=== PATIENT | male | born 1960 | race Caucasian/White ===

== ENCOUNTER 2017-07-04 15:15 | Inpatient (IN) ==
--- NOTE | 2017-07-04 15:21 | Emergency Department Note ---
Disposition Clinical Impression: Atrial fibrillation with RVR Pneumonia Qualifiers: Pneumonia type: due to unspecified organism Laterality: unspecified laterality Lung location: unspecified part of lung Qualified Code(s): J18.9 - Pneumonia, unspecified organism Disposition: Admitted As Inpatient Condition: Fair [facility] Provider[facility] - Forms: ED Satisfaction Letter, Work/School Release Time of Disposition: 15:30 General Adult HPI - General Chief complaint: ED Abdominal Pain Stated complaint: constipation Time Seen by Provider: 07/04/17 15:19 Source: patient, EMS Mode of arrival: EMS Limitations: no limitations Nursing Notes Reviewed: Yes Vital Signs Reviewed: Yes - History of Present Illness HPI Narrative: 56[facility]year-[facility] and during the workup was found to be in A. fib with rapid ventricular response and also found to have elevated blood pressure and elevated troponin. The patient denies chest pain but does feel some dyspnea. The patient stopped his blood pressure medicine. 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: abdomen Radiation: non-radiation Pain Severity: mild Consistency: constant Improves with: nothing Worsens with: nothing Treatments Prior to Arrival: none - Related Data Home Medications Medication Instructions Recorded Confirmed Aspirin Enteric Coated [Aspirin EC] 81 mg PO DAILY 07/04/17 07/04/17 Dextroamphetamine Sulfate 10 mg PO QAM 07/04/17 07/04/17 [Dexedrine] Insulin ASPART [NovoLOG] 0 unit SQ TIDAC 07/04/17 07/04/17 Insulin Regular U-500 [HumuLIN R 150 - 220 unit SQ QAM 07/04/17 07/04/17 U-500] Insulin Regular U-500 [HumuLIN R 150 - 230 unit SQ 1200 07/04/17 07/04/17 U-500] Insulin Regular U-500 [HumuLIN R 160 - 260 unit SQ QPM 07/04/17 07/04/17 U-500] Ketotifen Fumarate [Zaditor] 1 drop OP BID PRN 07/04/17 07/04/17 Naproxen [Naprosyn] 500 mg PO BID 07/04/17 07/04/17 OxyCODONE Immed Rel [Roxicodone 10 30 mg PO BID 07/04/17 07/04/17 MG] Polyethylene Glycol 3350 [MiraLAX] 17 gm PO HS PRN 07/04/17 07/04/17 Propylene Glycol/Peg 400 [Systane 1 drop BOTH EYES BID PRN 07/04/17 07/04/17 0.3-0.4% Eye Drops] amLODIPine [Norvasc] 5 mg PO DAILY 07/04/17 07/04/17 Allergies Allergy/AdvReac Type Severity Reaction Status Date / Time aspartame Allergy See Verified 07/04/17 16:02 Comments carvedilol [From Coreg] Allergy See Verified 07/04/17 16:02 Comments hydrochlorothiazide Allergy See Verified 07/04/17 16:02 Comments losartan [From Cozaar] Allergy See Verified 07/04/17 16:02 Comments peanut Allergy See Verified 07/04/17 16:02 Comments prasugrel [From Effient] Allergy See Verified 07/04/17 16:02 Comments ramipril Allergy See Verified 07/04/17 16:02 Comments sucralose Allergy See Verified 07/04/17 16:02 Comments sweet n low Allergy See Uncoded 07/04/17 16:02 Comments All systems ED: reviewed and negative except as stated. Constitutional: Denies: fever, chills, weakness, weight change Eyes: Denies: eye pain, eye discharge, vision change ENT ED: Denies: ear pain, throat pain, dental pain, hearing loss, epistaxis, congestion, dysphagia Cardiovascular: Denies: chest pain, palpitations, dyspnea on exertion, edema, syncope Respiratory: Denies: cough, dyspnea, wheezes, hemoptysis, stridor Gastrointestinal: Reports: abdominal pain, constipation. Denies: nausea, vomiting, diarrhea, hematemesis, melena, hematochezia Genitourinary: Denies: urgency, dysuria, frequency, hematuria Musculoskeletal: Denies: back pain, neck pain, arthralgia, myalgia Integumentary: Denies: rash, abrasion, lesions Neurological: Denies: headache, weakness, numbness, paresthesias, confusion, abnormal gait, vertigo Psychiatric: Denies: anxiety, depression, suicidal thoughts, homicidal thoughts , auditory hallucinations, visual hallucinations Endocrine: Denies: fatigue Hematological/Lymphatic: Denies: easy bleeding, easy bruising Allergic/Immunologic: Denies: facial swelling, urticaria Past Medical History - Past Medical History Medical history: Reports: COPD, coronary artery disease, diabetes, hyperlipidemia, hypertension, myocardial infarction Surgical history: Reports: angioplasty/stent, appendectomy Psychiatric history: Reports: ADHD - Social History Smoking Status: Former smoker Alcohol use: Reports: none Drug use: Reports: prescription drug abuse Physical Exam - General Limitations: no limitations General appearance: alert, in no apparent distress - Head Head exam: atraumatic, normocephalic, normal inspection - Eye Eye exam: Present: normal appearance, PERRL, EOMI - ENT ENT exam: normal exam, normal oropharynx, mucous membranes moist - Neck Neck exam: Present: normal inspection, full ROM, trachea midline - Chest Chest inspection: Present: normal inspection, symmetric chest wall rise - Respiratory Respiratory exam: Present: normal lung sounds bilaterally - Cardiovascular Cardiovascular exam: Present: tachycardia, irregular rhythm, normal heart sounds - Abdominal Exam Abdominal exam: Present: soft. Absent: guarding, rebound - Extremities Exam Extremities exam: Present: normal inspection, full ROM. Absent: tenderness, pedal edema - Expanded Lower Extremity Exam Neurovascular/Tendon exam: Present: normal capillary refill Gait: observed and normal - Back Exam Back exam: Present: normal inspection, full ROM. Absent: tenderness - Neurological Exam Neurological exam: Present: alert, oriented X3 - Psychiatric Psychiatric exam: Present: normal affect, normal mood - Skin Skin exam: Present: warm, dry, intact, normal color Course - Reevaluation(s) Reevaluation #1: Chest x-ray from the [place] shows a right basilar airspace disease with a possible right pleural effusion abdominal views show a positive small bowel gas, moderate amount of stool in the colon. Degenerative changes of the spine. Lipase 86, amylase 18 white count 11.8 hemoglobin 14.8 hematocrit 44.5 platelets of 265 AST 13 ALT 14 sodium 134 potassium 3.4 chloride 98 carbon monoxide 28 glucose 380 BUNs 7 creatinine 1.3 for GFR 58.8 troponin was 0.066, high normal 0.045. CK was 117. BNP was 4206 with a normal level of less than 125. Echocardiogram done in 2016 shows an EF of 55%. Time: 15:22 Reevaluation #2: 56-year-old who went in for constipation was found to be in A. fib with positive cardiac enzymes possibly pneumonia and CHF. Patient will be admitted of consultation with cardiology obtained. Time: 16:34 - Consultations Consultation #1: Discussed with zachariah Davalos, admit to hospitalist Time: 15:48 Consultation #2: Discussed with , admit. Time: 16:32 Vital Signs Temperature 97.0 F L 07/04/17 15:18 Pulse Rate 138 07/04/17 15:18 Respiratory Rate 18 07/04/17 15:18 Blood Pressure 131/109 07/04/17 15:18 O2 Sat by Pulse Oximetry 96 07/04/17 15:18 Temperature 97.0 F L 07/04/17 15:18 Pulse Rate 138 07/04/17 15:18 Respiratory Rate 18 07/04/17 15:18 Blood Pressure 131/109 07/04/17 15:18 O2 Sat by Pulse Oximetry 96 07/04/17 15:18 Oxygen Delivery Oxygen Delivery Room Air Medical Decision Making - Lab Data Lab Results 07/04/17 Range/Units 16:02 Lactic Acid 2.4 H (0.5-2.2) mmol/L - EKG Data EKG #1 EKG attestation: Yes I reviewed and interpreted this EKG. Rate: tachycardia Rhythm: A.Fib, A. flutter
[2017-07-04] MEDS ORDERED: cefTRIAXone 1,000 MG in Water for inj. (sterile) 20 ML 10 ML IVP ONE (15:29)
[2017-07-04] MEDS ORDERED: Furosemide 40 MG/4 ML VIAL IVP ONE (15:29)
[2017-07-04] MEDS ORDERED: Azithromycin 500 MG in D5% in Water 250 ML IVPB ONE (15:29)
[2017-07-04] MEDS ORDERED: Ondansetron 4 MG/2 ML VIAL IVP ONE (15:54)
[2017-07-04 16:32] LABS: Basophils # 0.1 K/mcL (0.0-0.2); Eosinophils # 0.3 K/mcL (0.0-0.6); Eosinophils % 2.9 %; Hematocrit 44.2 % (37.5-50.1); Hemoglobin 14.6 g/dL (12.9-16.9); Immature Granulocytes % 0.3 % (0-4); Lymphocytes # 1.9 K/mcL (0.6-4.6); Lymphocytes % 17.8 %; Mean Corpuscular Hemoglobin 28.9 pg (28.0-33.3); Mean Corpuscular Volume 87.4 fL (83.0-100.0); Mean Platelet Volume 10.5 fL (9.4-12.4); Monocytes # 0.7 K/mcL (0.0-1.3); Monocytes % 6.1 %; Neutrophils # 7.7 K/mcL (1.6-8.9); Platelet Count 274 K/mcL (140-400); Red Blood Count 5.06 M/mcL (4.19-5.50); Red Cell Distribution Width 13.4 % (11.5-14.5); Segmented Neutrophils % 71.9 %
[2017-07-04 16:55] LABS: Alanine Aminotransferase 10 Units/L (7-52); Albumin 3.8 g/dL (3.5-5.7); Albumin/Globulin Ratio 1.2 (1.1-2.2); Alkaline Phosphatase 95 Units/L (34-104); Aspartate Amino Transferase 15 Units/L (13-39); BUN/Creatinine Ratio 8 (6-26); Blood Urea Nitrogen 9 mg/dL (6-20); Calcium 9.5 mg/dL (8.6-10.3); Carbon Dioxide 26 mEq/L (23-29); Chloride 98 mEq/L (98-107); Globulin 3.3 g/dL (2.4-3.5); Glucose 400 mg/dL (70-105); Osmolality,Calculated 295 (280-300); Potassium 4.6 mEq/L (3.5-5.1); Sodium 135 mEq/L (136-145); Total Protein 7.1 g/dL (6.4-8.9); eGFR For African Americans > 60 (> 60); eGFR For Non-African Americans > 60 (> 60)
[2017-07-04] MEDS ORDERED: Ketotifen Fumarate [Zaditor] OP PRN (17:18)
[2017-07-04] MEDS ORDERED: Artificial Tears SOLN 15 ML BOTTLE BOTH EYES PRN (17:18)
[2017-07-04] MEDS ORDERED: Naloxone 0.4 MG/ML INJ IVP PRN (17:26)
[2017-07-04] MEDS ORDERED: Dextrose Gel 15 GM/37.5 ML TUBE PO PRN ×2 (17:37)
[2017-07-04] MEDS ORDERED: Milk and Molasses Enema 200 ML RC ONE (17:48)
--- NOTE | 2017-07-04 19:21 | Internal Med History&Physical ---
Date of Encounter: 07/04/17 Time of Encounter: 15:00 Assessment and Plan (1) Atrial flutter with rapid ventricular response Current visit: Yes Status: Acute New and acute onset of atrial flutter w/RVR. Pt. reports previous incidence in past when he had a high fever. Today is first sx since that time. Pt. also reports taking 10 mg Dexedrine daily for his ADHD which can increase risk for atrial flutter/atrial fibrillation. Pt. states he has been taking Dexedrine for a long time. HR on admission was 138. Cardiology consulted in ED w/ recommendation to begin Cardizem drip w/titration. Continuous cardiac telemetry. Echocardiogram ordered. Falls/safety precautions. Will repeat EKG. Pt. and VS to be monitored closely d/t Cardizem drip for signs of conversion to NSR. Heparin SQ for DVT prophylaxis. Continue pts. aspirin and Norvasc. Pt. discussed w/Dr. Quezada who agrees w/plan of care. Pt. is high risk for further morbidity and cardiac event based on hx of AK w/stent placement x5, current atrial flutter w/RVR, hx; and risk factors of CAD, HTN, HLD, uncontrolled DM. Inpatient. (2) Pneumonia Current visit: Yes Status: Acute Acute CAP. 2-View CXR at [place] today shows right basilar airspace disease with a possible small right pleural effusion. Will repeat CXR here. Azithromycin 500 mg IVPB daily and ceftriaxone 2,000 mg IVPB daily for infection coverage. Legionella and strep pneumoniae antigens ordered. Blood cultures x2 ordered. Will adjust abx coverage based on culture results. Supplemental O2 w/titration and SpO2 monitoring. Xopenex 1.25 mg IH Q6HR scheduled. Pt. is not currently sepsis criteria. Lactic acid 2.4 and most likely reactive to current arrythmia. Will repeat. Monitor pt. and f/u labs. Qualifiers: Pneumonia type: due to unspecified organism Laterality: right Lung location: lower lobe of lung Qualified Code(s): J18.1 - Lobar pneumonia, unspecified organism (3) CHF (congestive heart failure) Current visit: Yes Status: Acute BNP 377 on admission which may be reactive. Pt. does report increase in pedal edema occasionally and SOB over the past week. Lungs clear on auscultation w/o crackles or wheezes. Mild edema of LEs on exam that is non-pitting. Lasix 40 mg IVP given in ED. Echocardiogram ordered. CXR ordered. Continuous telemetry. Will monitor pt. and fluid intake for possible fluid overload. Qualifiers: Heart failure type: unspecified Heart failure chronicity: unspecified Qualified Code(s): I50.9 - Heart failure, unspecified (4) Constipation due to opioid therapy Current visit: Yes Status: Acute Acute on chronic constipation most likely d/t pts. use of opioids for pain r/t back pain. Pt. takes 30 mg Roxicodone BID. Pt. reports chronic constipation and difficulty w/regular BMs. 2-View abdominal XR at [place] today shows positive small bowel gas and moderate amount of stool in colon. Monitor I&O. Will continue pts. Miralax HS and add Sennasides BID and milk/molasses enema. Hold Roxicodone overnight. (5) Unsteadiness on feet Current visit: Yes Status: Acute Pt. reports unsteadiness on his feet occasionally w/positional changes. Orthostatic BP and VS ordered. Falls/safety precautions, up with assist, bed rest w/bathroom privileges w/assist only. (6) Diabetes Current visit: Yes Status: Chronic Hx of chronic diabetes that is not well-controlled w/insulin. Pt. reports he uses Humulin R U 500 but his average BG is 3-00-400. Also reports episodes of hypoglycemia. Will use pts. Humulin sliding scale and add high-dose correction sliding scale insulin w/hypoglycemia protocol. Diabetes Education consult ordered. BG checks ACHS and may be changed to shorter duration d/t pts. hx of uncontrolled BG. A1c in a.m. labs. 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 Risk factors include HTN, HLD, DM. Continuous cardiac telemetry. Continue pts. Norvasc and aspirin. Heparin for DVT prophylaxis. Qualifiers: Coronary Disease-Associated Artery/Lesion type: [place] artery [place] vs. transplanted heart: [place] heart Associated angina: angina presence unspecified Qualified Code(s): I25.10 - Atherosclerotic heart disease of [place] coronary artery without angina pectoris (8) HLD (hyperlipidemia) Current visit: Yes Status: Chronic Hx of chronic HLD. Lipid panel in a.m. labs. Pt. reports he does not currently take statin d/t allergy to statins. Will monitor f/u labs. Qualifiers: Hyperlipidemia type: pure hypercholesterolemia Qualified Code(s): E78.00 - Pure hypercholesterolemia, unspecified; E78.0 - Pure hypercholesterolemia (9) HTN (hypertension) Current visit: Yes Status: Chronic Hx of chronic HTN. Monitor pt. and VS. Continue pts. Norvasc. Qualifiers: Hypertension type: essential hypertension Qualified Code(s): I10 - Essential (primary) hypertension (10) COPD (chronic obstructive pulmonary disease) Current visit: Yes Status: Chronic Hx of chronic COPD. Stable. Supplemental O2 w/titration and SpO2 monitoring. Xopenex 1.25 IH Q6HR scheduled. Qualifiers: COPD type: unspecified COPD Qualified Code(s): J44.9 - Chronic obstructive pulmonary disease, unspecified (11) ADHD Current visit: Yes Status: Chronic Hx of chronic ADHD that pt. reports taking Dexedrine for daily in a.m. Pts. son to bring home medication for pharmacy verification d/t med not being in [facility] formulary. Will continue in a.m. Qualifiers: Attention deficit-hyperactivity disorder type: combined inattentive- hyperactive Qualified Code(s): F90.2 - Attention-deficit hyperactivity disorder, combined type (12) DVT prophylaxis Current visit: Yes Status: Acute Heparin 5,000 units SQ Q8 for DVT prophylaxis. Monitor pt. for signs of bleeding. Internal Medicine - H&P: HPI Chief complaint: Heart palpitations/Arrythmia Admitted From: Hospital to Hospital Transfer Plans for Post Hospital Care: Home History of present illness: Mr. Madera is a 56 year old male w/PMH of COPD, CAD, diabetes controlled with insulin, HLD, HTN, and previous myocardial infarction in 2005 w/placement of stents x5 presents from the [place] w/chief complaint of new onset of heart palpitations/arrythmia today. Pt. states he went to the [place] for constipation and once there was found to have atrial flutter as well as pneumonia on CXR. Pt. states he had similar arrhythmia once before when he had a fever. Pt. reports he has been having hypertension and SOB recently as well. Pt. reports ADHD and takes Dexedrine 10 mg in a.m. Pt. reports SOB, constipation, unsteadiness on feet but denies recent illness, fever, chills, nausea, vomiting, cough, headache , changes in vision, abdominal pain, diarrhea, unusual bleeding, dizziness, lightheadedness, pre-syncope, or syncope. Past Med Surg Social Fam HX - Past Medical History Source: patient, old records reviewed, obtained from family Medical history: COPD, coronary artery disease, diabetes (Insulin-controlled), hyperlipidemia, hypertension, myocardial infarction (2006 - placement of 5 stents) Psychiatric history: ADHD - Past Surgical History Surgical History: angioplasty/stent (x5), appendectomy - Social History Smoking Status: Former smoker Packs per day: 3 PPD - Reports quitting in 2005 Smokeless Tobacco Status: No Alcohol use: none Drug use: none Current living situation: Home, With Family Activity Level: Independent ambulation Recent Out of Country Travel Within the Last 8 Weeks: No Exposure or Possible Exposure to Illness During Travel: No - Family History Father Race: Family Member Ethnicity: Non- Living Status: Age at : 71 Cause of : COPD complications Hx Family Cardiac Disorders: Yes (CVA) Hx Family Respiratory Disorders: Yes (COPD) Hx Family Neurologic Disorders: Yes (CVA) Mother Race: Family Member Ethnicity: Non- Living Status: Age at : 73 Cause of : AK Hx Family Cardiac Disorders: Yes (AK) Hx Family Cancer: Yes (Colon) Hx Family Endocrine Disorder: Yes (DM) Brother Race: Family Member Ethnicity: Non- Living Status: Age at : 41 Cause of : Rupture of AAA Hx Family Cardiac Disorders: Yes (AAA) Internal Medicine - H&P: Meds Aspirin Enteric Coated [Aspirin EC] 81 mg PO DAILY 07/04/17 [History] Dextroamphetamine Sulfate [Dexedrine] 10 mg PO QAM 07/04/17 [History] Insulin ASPART [NovoLOG] 0 unit SQ TIDAC 07/04/17 [History] Insulin Regular U-500 [HumuLIN R U-500] 150 - 220 unit SQ QAM 07/04/17 [History ] Insulin Regular U-500 [HumuLIN R U-500] 150 - 230 unit SQ 1200 07/04/17 [ History] Insulin Regular U-500 [HumuLIN R U-500] 160 - 260 unit SQ QPM 07/04/17 [History ] Ketotifen Fumarate [Zaditor] 1 drop OP BID PRN 07/04/17 [History] Naproxen [Naprosyn] 500 mg PO BID 07/04/17 [History] OxyCODONE Immed Rel [Roxicodone 10 MG] 30 mg PO BID 07/04/17 [History] Polyethylene Glycol 3350 [MiraLAX] 17 gm PO HS PRN 07/04/17 [History] Propylene Glycol/Peg 400 [Systane 0.3-0.4% Eye Drops] 1 drop BOTH EYES BID PRN 07/04/17 [History] amLODIPine [Norvasc] 5 mg PO DAILY 07/04/17 [History] 3 Allergy/AdvReac Type Severity Reaction Status Date / Time aspartame Allergy See Verified 07/04/17 16:02 Comments carvedilol [From Coreg] Allergy See Verified 07/04/17 16:02 Comments hydrochlorothiazide Allergy See Verified 07/04/17 16:02 Comments losartan [From Cozaar] Allergy See Verified 07/04/17 16:02 Comments peanut Allergy See Verified 07/04/17 16:02 Comments prasugrel [From Effient] Allergy See Verified 07/04/17 16:02 Comments ramipril Allergy See Verified 07/04/17 16:02 Comments sucralose Allergy See Verified 07/04/17 16:02 Comments sweet n low Allergy See Uncoded 07/04/17 16:02 Comments All Systems PM: A 10-system review of systems was performed and is negative for pertinent findings except as documented above in the HPI. - Constitutional Constitutional: no chills, no fever(s), no night sweats - EENT Eyes: no change in vision, no discharge, no pain, no photophobia Ears: no ear discharge, no ear pain, no tinnitus Nose, mouth and throat: no dysphagia, no nasal discharge, no neck pain, no sore throat - Breasts Breasts: as per HPI - Cardiovascular Cardiovascular ROS IM: as per HPI, dyspnea, dyspnea on exertion, irregular heart rhythm, no chest pain, no diaphoresis, no lightheadedness, no palpitations , no syncope - Respiratory Respiratory: as per HPI, dyspnea, dyspnea on exertion, no cough, no wheezing, no excessive phlegm production - Gastrointestinal Gastrointestinal: as per HPI, constipation, no abdominal pain, no diarrhea, no hematemesis, no hematochezia, no melena, no nausea, no vomiting - Genitourinary Genitourinary ROS male: as per HPI - Musculoskeletal Musculoskeletal ROS IM: no numbness, no tingling - Integumentary Integumentary IM: no rash, no unusual bruising - Neurological Neurological ROS: as per HPI, other (Unsteadiness w/ambulation sometimes), no confusion, no convulsions, no focal weakness, no numbness, no tingling, no tremor(s) - Psychiatric Psychiatric: as per HPI, difficulty concentrating - Endocrine Endocrine IM: as per HPI - Hematologic/Lymphatic Hematologic/Lymphatic: no easy bruising - Allergic/Immunologic Allergic/Immunologic: as per HPI - Constitutional Vitals: Temp Pulse Resp BP Pulse Ox 97.0 F L 139 16 129/106 97 07/04/17 15:18 07/04/17 16:49 07/04/17 16:49 07/04/17 16:49 07/04/17 16:49 General appearance: Present: A&O X 3, morbidly obese, no acute distress, answers questions appropriately - Head Head exam: Present: atraumatic, normocephalic - Eye Eye exam: Present: PERRL, conjuntiva pink, sclera anicteric Pupils: Present: PERRL - ENT ENT exam: Present: normal exam - Neck Neck exam general surgery: Present: normal inspection, supple, trachea midline. Absent: lymphadenopathy - Respiratory Respiratory exam: Present: CTAB. Absent: accessory muscle use, rales, rhonchi, wheezes - Cardiovascular Cardiovascular exam: Present: irregular rhythm - GI/Abdominal GI/Abdominal exam: Present: normal bowel sounds, soft, no peritoneal signs. Absent: distended, tenderness - Rectal Rectal exam: Present: deferred - Additional comments: exam deferred. - Extremities Exam Extremities exam: Present: warm, radial pulses palpable and symmetrical. Absent : calf tenderness, cyanotic, pedal edema - Back Exam Back exam: Present: normal inspection - Neurological Exam Neurological exam: Present: CN II-XII intact, oriented X3, no focal deficits. Absent: pronater drift, facial droop, speech deficit - Psychiatric Psychiatric exam: Present: normal affect, normal mood - Skin Skin exam: Present: dry, intact Internal Med - H&P Results - Labs CBC & Chem 7: 07/04/17 16:02 07/04/17 16:24 - EKG Data Prior EKG available for review: yes EKG comments: 07/04/17 19:33 EKG dated 07/04/17 at [place] showed atrial flutter with 2:1 AV conduction, left axis deviation, septal infarct of indeterminate age EKG dated 07/04/17 at [facility] showed atrial flutter/tachycardia with rapid ventricular response, anteroseptal myocardial infarction of indeterminate age. - Diagnostic Studies Chest x-ray Additional comments: 2-View CXR at [place] today shows right basilar airspace disease with possible small right pleural effusion. Abdominal x-ray Additional comments: 2-View XR of the abdomen at [place] today shows a paucity of small bowel gas. There is moderate amount of stool in the colon. There are degenerative changes in the spine. There is asymmetric elevation of the right hemidiaphragm with right basilar airspace disease.
[2017-07-04 19:28] LABS: Troponin I 0.04 ng/mL (< 0.04)
[2017-07-04] MEDS ORDERED: *HR* Insulin Regular U-500 500 UNIT/ML SQ ONE (20:15)
[2017-07-04] MEDS ORDERED: *HR* Enoxaparin 150 MG/ML SYRINGE SQ STA (20:44)
[2017-07-04] MEDS ORDERED: *HR* Metoprolol 5 MG/5 ML VIAL IVP PRN (20:53)
--- NOTE | 2017-07-04 20:53 | Event Note ---
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 He presented with acute in chronic issues with constipation and was noted to have atrial fibrillation with RVR, chest XRay also revealed Pneumonia. Patient seen and examined at bedside; continues to have constipation and some abdominal discomfort; no chest pain, palpitations, dyspnea; Chest- S1, S2 heard, irregular rhythm, tachycardia; lungs are clear to auscultation; Labs reviewed- mild Troponin leak, elevated BNP Chest XRay reviewed independently- right basal infiltrate EKG shows irregular narrow complex tachycardia, likely atrial flutter New onset atrial flutter/fibrillation with RVR- possibly induced by underlying infection. Cardiology has been consulted by ER; continue IV Cardizem drip and use PRN IV Metoprolol for HR<110; will give a dose of Lovenox; check TTE; continue Telemetry monitoring and serial Troponins; mild leak is likely tachycardia-induced; Right lower lobe Pneumonia- f/up blood cultures and continue IV Rocephin and Azithromycin; supportive care and supplemental O2; Constipation- give milk of molasses enema now and start scheduled laxatives and stool softeners; Patient evaluated along with PROPERTY ASSISTANT; agree with the detailed H&P except as mentioned above;
[2017-07-04] MEDS: Sennosides/Docusate Sodium TABLET PO SCH (21:15)
[2017-07-04] MEDS: *HR* Promethazine 25 MG/ML VIAL IM PRN (22:09)
[2017-07-04 22:10] LABS: Thyroid Stimulating Hormone 1.652 mcIU/mL (0.340-5.600)
[2017-07-04] MEDS: *HR* OxyCODONE Immed Rel 15 MG TABLET PO SCH (22:10)
[2017-07-04] MEDS: cefTRIAXone 2,000 MG in Water for inj. (sterile) 20 ML 20 ML IVP SCH (22:10)
[2017-07-04] MEDS: Azithromycin 500 MG in D5% in Water 250 ML IVPB SCH (22:11)
[2017-07-04] MEDS: Insulin LISPRO 300 UNITS/3 ML VIAL SQ SCH (22:23)
[2017-07-05] MEDS ORDERED: *HR* Heparin 5,000 UNIT/ML VIAL SQ SCH
[2017-07-05] MEDS: Levalbuterol Neb 1.25 MG/3 ML IH SCH ×5 (00:24→22:30)
[2017-07-05 01:44] LABS: Basophils # 0.1 K/mcL (0.0-0.2); Eosinophils # 0.3 K/mcL (0.0-0.6); Eosinophils % 2.8 %; Hematocrit 44.5 % (37.5-50.1); Hemoglobin 14.5 g/dL (12.9-16.9); Immature Granulocytes % 0.4 % (0-4); Lymphocytes # 2.6 K/mcL (0.6-4.6); Lymphocytes % 26.1 %; Mean Corpuscular HGB Conc 32.6 g/dL (31.6-35.5); Mean Platelet Volume 10.3 fL (9.4-12.4); Monocytes # 0.7 K/mcL (0.0-1.3); Monocytes % 7.3 %; Neutrophils # 6.3 K/mcL (1.6-8.9); Platelet Count 290 K/mcL (140-400); Red Cell Distribution Width 13.5 % (11.5-14.5); Segmented Neutrophils % 62.4 %
[2017-07-05 02:07] LABS: Albumin 3.8 g/dL (3.5-5.7); Albumin/Globulin Ratio 1.1 (1.1-2.2); Bilirubin,Total 0.8 mg/dL (0.3-1.0); Calcium 9.3 mg/dL (8.6-10.3); Chol/HDL Ratio 4.6 (0-4.9); Globulin 3.5 g/dL (2.4-3.5); Magnesium 1.8 mg/dL (1.6-2.6); Potassium 3.7 mEq/L (3.5-5.1); Total Protein 7.3 g/dL (6.4-8.9)
[2017-07-05] MEDS: *HR* Promethazine 25 MG/ML VIAL IM PRN ×2 (06:26→21:06)
[2017-07-05] MEDS ORDERED: Perflutren Lipid Microsphere 1.3 ML in 0.9 % Sodium Chloride 8.7 ML IVP ONE (07:37)
[2017-07-05] MEDS ORDERED: *HR* Insulin Regular U-500 500 UNIT/ML SQ SCH (07:45)
[2017-07-05] MEDS: Sennosides/Docusate Sodium TABLET PO SCH ×2 (08:17→20:54)
[2017-07-05] MEDS: Aspirin Enteric Coated 81 MG Tablet PO SCH (08:17)
[2017-07-05] MEDS: *HR* OxyCODONE Immed Rel 15 MG TABLET PO SCH ×2 (08:18→20:54)
[2017-07-05] MEDS: Insulin LISPRO 300 UNITS/3 ML VIAL SQ SCH ×4 (08:21→20:59)
--- NOTE | 2017-07-05 08:33 | Cardiology Consult Note ---
Date of Encounter: 07/05/17 Time of Encounter: 08:28 Assessment and Plan (1) Atrial fibrillation with RVR Current Visit: Yes Status: Acute Likely newly discovered but with LAE on previous ECHO he may have had previous episodes. ChadsVasc 3 at this time would recommend rate control with cardiazem and NOAC upon discharge. NST as an inpatient vs outpatient is reasonable also Discussion w patient/family: The assessment and plan as outlined above was discussed with the patient and/or family members who expressed understanding and agreement. All questions were answered. Thank you for involving us in the care of your patient. Please call with any questions. History of Present Illness Consult date: 07/05/17 Consult reason: Afib Chief complaint: Belly Pain History of present illness: Mr. Madera is a 56 year old male with h/o DM, HTN, COPD who presents with abdominal pain and constipation found to be in Afib with RVR currently above 100 bpm. Last ECHO 2016 preserved EF with dilated LA indicating possibly longer duration Afib. I do believe he is in pain and aggravated about his constipation which makes controlling his Afib difficult. I would continue Cardiazem drip at this time along with an IV heparin drip for stroke risk reduction. A stress test inpatient vs outpatient is reasonable due to mild trops and multiple CRF' s. Would also prefer to switch to PO Cardiazem once abdominal pain and constipation have resolved. He denies any palpitations, CP, orthopnea or PND. Past Med Surg Social Fam HX - Past Medical History Medical history: COPD, coronary artery disease, diabetes (Insulin-controlled), hyperlipidemia, hypertension, myocardial infarction (2006 - placement of 5 stents) Psychiatric history: ADHD - Past Surgical History Surgical History: angioplasty/stent (x5), appendectomy - Social History Smoking Status: Former smoker Packs per day: 3 PPD - Reports quitting in 2006 Smokeless Tobacco Status: No Alcohol use: none Drug use: none - Family History Father Race: Family Member Ethnicity: Non- Living Status: Age at : 71 Cause of : COPD complications Hx Family Cardiac Disorders: Yes (CVA) Hx Family Respiratory Disorders: Yes (COPD) Hx Family Neurologic Disorders: Yes (CVA) Mother Race: Family Member Ethnicity: Non- Living Status: Age at : 73 Cause of : ID Hx Family Cardiac Disorders: Yes (ID) Hx Family Cancer: Yes (Colon) Hx Family Endocrine Disorder: Yes (DM) Brother Race: Family Member Ethnicity: Non- Living Status: Age at : 41 Cause of : Rupture of AAA Hx Family Cardiac Disorders: Yes (AAA) Medications and Allergies Aspirin Enteric Coated [Aspirin EC] 81 mg PO DAILY 07/04/17 [History] Dextroamphetamine Sulfate [Dexedrine] 10 mg PO QAM 07/04/17 [History] Insulin ASPART [NovoLOG] 0 unit SQ TIDAC 07/04/17 [History] Insulin Regular U-500 [HumuLIN R U-500] 150 - 220 unit SQ QAM 07/04/17 [History ] Insulin Regular U-500 [HumuLIN R U-500] 150 - 230 unit SQ 1200 07/04/17 [ History] Insulin Regular U-500 [HumuLIN R U-500] 160 - 260 unit SQ QPM 07/04/17 [History ] Ketotifen Fumarate [Zaditor] 1 drop OP BID PRN 07/04/17 [History] Naproxen [Naprosyn] 500 mg PO BID 07/04/17 [History] OxyCODONE Immed Rel [Roxicodone 10 MG] 30 mg PO BID 07/04/17 [History] Polyethylene Glycol 3350 [MiraLAX] 17 gm PO HS PRN 07/04/17 [History] Propylene Glycol/Peg 400 [Systane 0.3-0.4% Eye Drops] 1 drop BOTH EYES BID PRN 07/04/17 [History] amLODIPine [Norvasc] 5 mg PO DAILY 07/04/17 [History] 3 Allergy/AdvReac Type Severity Reaction Status Date / Time aspartame Allergy See Verified 07/04/17 16:02 Comments carvedilol [From Coreg] Allergy See Verified 07/04/17 16:02 Comments hydrochlorothiazide Allergy See Verified 07/04/17 16:02 Comments losartan [From Cozaar] Allergy See Verified 07/04/17 16:02 Comments peanut Allergy See Verified 07/04/17 16:02 Comments prasugrel [From Effient] Allergy See Verified 07/04/17 16:02 Comments ramipril Allergy See Verified 07/04/17 16:02 Comments sucralose Allergy See Verified 07/04/17 16:02 Comments sweet n low Allergy See Uncoded 07/04/17 16:02 Comments All Systems Review: The remainder of the systems were reviewed and are negative Physical Examination Vital Signs, Last 4 Hours Temp Pulse Resp BP Pulse Ox 07/05/17 06:10 97.5 F L 99 16 151/83 91 07/05/17 05:34 97.7 F 105 18 125/104 90 General: Conversant, No Apparent Distress HEENT: Atraumatic, Normocephaly, Mucus Membranes Moist Neck: No JVD, Normal carotid pulses Cardiac: Reg Rate and Rhythm, Normal S1 and S2, No Murmur Lungs: Normal Breath Sounds, No Wheeze, Rales, Rhonchi Neuro: Alert and responsive, No focal deficits noted Abdomen: Soft, Non-Tender Skin: No rashes noted on visualized skin Musculoskeletal: No Chest Wall Tenderness Extremities: No Clubbing, No Cyanosis, No Edema, Normal Pulses Results 07/05/17 01:25 07/05/17 01:25 Lab Results 07/04/17 07/05/17 07/05/17 18:21 01:25 01:25 WBC 10.0 Hgb 14.5 Hct 44.5 Plt Count 290 Sodium Potassium Chloride Carbon Dioxide BUN Creatinine Glucose Calcium Magnesium Total Bilirubin AST ALT Alkaline Phosphatase Troponin I 0.04 H* 0.05 H* TSH 1.652 07/05/17 01:25 WBC Hgb Hct Plt Count Sodium 132 L Potassium 3.7 Chloride 97 L Carbon Dioxide 23 BUN 11 Creatinine 1.64 H Glucose 444 H Calcium 9.3 Magnesium 1.8 Total Bilirubin 0.8 AST 13 ALT 8 Alkaline Phosphatase 100 Troponin I TSH Consult Discharge Plan - Plan [facility]errals: [facility] [Primary Care Provider] -
[2017-07-05] MEDS ORDERED: amLODIPine 5 MG TABLET PO SCH (09:00)
[2017-07-05] MEDS: *HR* Insulin Regular U-500 500 UNIT/ML SQ SCH ×3 (10:13→17:16)
[2017-07-05] MEDS: DEXTROAMPHETAMINE SULFATE 10 MG PO SCH (10:16)
[2017-07-05] MEDS ORDERED: *HR* Heparin 5,000 UNIT/ML VIAL IVP PRN ×2 (11:25)
[2017-07-05] MEDS ORDERED: *HR* Heparin 5,000 UNIT/ML VIAL IVP ONE (11:25)
[2017-07-05] MEDS ORDERED: *HR* Insulin Regular U-500 500 UNIT/ML SQ ONE ×2 (12:30→16:00)
[2017-07-05 12:57] LABS: Hemoglobin 14.9 g/dL (12.9-16.9); Mean Corpuscular HGB Conc 33.1 g/dL (31.6-35.5); Mean Corpuscular Volume 87.5 fL (83.0-100.0); Mean Platelet Volume 10.1 fL (9.4-12.4); Platelet Count 262 K/mcL (140-400); Red Blood Count 5.14 M/mcL (4.19-5.50); Red Cell Distribution Width 13.6 % (11.5-14.5)
[2017-07-05 13:04] LABS: INR 1.4; Prothrombin Time 15.1 Seconds (9.4-12.1)
[2017-07-05 13:07] LABS: Activated Partial Thrombo Time 32.3 Seconds (26.0-36.0)
[2017-07-05] MEDS: Heparin 25,000 UNIT/500 ML D5W 25,000 UNIT/500 ML BAG IVC SCH (13:52)
[2017-07-05] MEDS: 0.9 % Sodium Chloride 1,000 ML IVC SCH (13:53)
--- NOTE | 2017-07-05 14:48 | Internal Med Progress Note ---
Date of Encounter: 07/05/17 Time of Encounter: 14:45 - Assessment and plan (1) Atrial fibrillation with RVR Current Visit: Yes Status: Acute Assessment and plan: new onset atrial flutter/fibrillation with RVR- possibly induced by underlying infection. Received one-time dose therapeutic Lovenox on admission. TSH normal. Continue Cardizem, heparin gtt. Cardiology following. TTE pending (2) Constipation due to opioid therapy Current Visit: Yes Status: Acute Assessment and plan: last BM over 5 days ago. ABD exam benign. Cont aggressive bowel regimen. Add one -time dose of magnesium citrate. KUB pending (3) Diabetes Current Visit: Yes Status: Chronic Assessment and plan: per hx. Blood sugars uncontrolled. Suspect secondary to dietary noncompliance. Cont home U-500 insulin. Hgb A1c pending Qualifiers: Diabetes mellitus type: type 2 Diabetes mellitus group home insulin use: unspecified long term care pharmacist insulin use status Diabetes mellitus complication status : with unspecified complications Qualified Code(s): E11.8 - Type 2 diabetes mellitus with unspecified complications (4) BRENT (acute kidney injury) Current Visit: Yes Status: Acute (5) Elevated troponin Current Visit: Yes Status: Acute Assessment and plan: troponin peaked at 0.06. Denies CP; possibly secondary to A. fib, acute kidney injury. Monitor troponin until trending down. Patient is agreeable for stress test this hospitalization. Cardiology following. (6) Pneumonia Current Visit: Yes Status: Acute Assessment and plan: Acute CAP. 2-View CXR at [place] today shows right basilar airspace disease with a possible small right pleural effusion. Afebrile, no elevated WBC. Continue IV azithromycin, ceftriaxone. Urinary antigens, respiratory PCR pending Qualifiers: Pneumonia type: due to unspecified organism Laterality: right Lung location: lower lobe of lung Qualified Code(s): J18.1 - Lobar pneumonia, unspecified organism (7) DVT prophylaxis Current Visit: Yes Status: Acute Assessment and plan: heparin gtt - Subjective Interval history: Seen and examined at bedside. He shows new to me. Information obtained from chart review and patient report. Says he is uncomfortable, feels constipated and bloated. No chest pain or shortness of breath. He is passing gas. Reports one small BM earlier. Says he takes chronic pain medicine at home and occasionally gets constipated but never to this extent. No palpitations, lightheadedness or dizziness. - Constitutional Vitals: Temp Pulse Resp BP Pulse Ox 97.5 F L 122 14 123/93 98 07/05/17 11:36 07/05/17 11:36 07/05/17 11:36 07/05/17 11:36 07/05/17 11:36 General appearance: Present: A&O X 3, morbidly obese, no acute distress, answers questions appropriately - Head Head exam: Present: atraumatic, normocephalic - Eye Eye exam: Present: PERRL, conjuntiva pink, sclera anicteric Pupils: Present: PERRL - Neck Neck exam general surgery: Present: supple, trachea midline. Absent: lymphadenopathy - Respiratory Respiratory exam: Present: CTAB. Absent: accessory muscle use, rales, rhonchi, wheezes - Cardiovascular Cardiovascular exam: Present: irregular rhythm, +S1, +S2, tachycardia. Absent: diastolic murmur, gallop, rubs, systolic murmur - GI/Abdominal GI/Abdominal exam: Present: normal bowel sounds, soft, no peritoneal signs. Absent: distended, tenderness - Extremities Exam Extremities exam: Present: warm, radial pulses palpable and symmetrical. Absent : calf tenderness, cyanotic, pedal edema - Neurological Exam Neurological exam: Present: CN II-XII intact, oriented X3, no focal deficits. Absent: pronater drift, facial droop, speech deficit - Skin Skin exam: Present: dry, intact Internal Medicine: Result - Labs CBC & Chem 7: 07/05/17 12:24 07/05/17 01:25 Labs: Short CBC 07/05/17 07/05/17 Range/Units 01:25 12:24 WBC 10.0 10.1 (4.3-11.1) K/mcL Hgb 14.5 14.9 (12.9-16.9) g/dL Hct 44.5 45.0 (37.5-50.1) % Plt Count 290 262 (140-400) K/mcL Neutrophils # 6.3 (1.6-8.9) K/mcL BMP 07/05/17 01:25 Sodium 132 L Potassium 3.7 Chloride 97 L Carbon Dioxide 23 BUN 11 Creatinine 1.64 H Glucose 444 H Calcium 9.3 Cardiac Enzymes 07/04/17 07/05/17 07/05/17 Range/Units 18:21 01:25 07:44 Troponin I 0.04 H* 0.05 H* 0.06 H* (< 0.04) ng/mL Liver Function 07/05/17 Range/Units 01:25 Total Bilirubin 0.8 (0.3-1.0) mg/dL AST 13 (13-39) Units/L ALT 8 (7-52) Units/L Alkaline Phosphatase 100 (34-104) Units/L Albumin 3.8 (3.5-5.7) g/dL - ABG Interpretation ABG results: PT/INR, D-dimer PT 15.1 Seconds (9.4-12.1) H 07/05/17 12:24 - Impressions Impressions Chest X-Ray 07/04/17 17:54 IMPRESSION: No significant change compared to prior study. Lung volumes are low with some vascular crowding and minimal streaky opacities at the bases that likely reflect atelectasis. No definite focal lung opacity or consolidation. D/ / 07/04/2017 22:06:49 Williams Cheng MD / anuel Interpreting Provider: Williams Cheng MD Consult Discharge Plan - Plan [facility]errals: [facility] [Primary Care Provider] -
[2017-07-05] MEDS: cefTRIAXone 2,000 MG in Water for inj. (sterile) 20 ML 20 ML IVP SCH (20:54)
[2017-07-05] MEDS: Azithromycin 500 MG in D5% in Water 250 ML IVPB SCH (20:55)
[2017-07-05 21:26] LABS: Activated Partial Thrombo Time 188.8 Seconds (26.0-36.0)
[2017-07-05 21:39] LABS: Heparin anti-factor XA UFH 1.26 IU/mL (0.30-0.70)
[2017-07-06] MEDS: 0.9 % Sodium Chloride 1,000 ML IVC SCH (03:15)
[2017-07-06] MEDS: Levalbuterol Neb 1.25 MG/3 ML IH SCH ×4 (03:42→21:48)
[2017-07-06 03:46] LABS: Basophils # 0.1 K/mcL (0.0-0.2); Basophils % 0.9 %; Eosinophils # 0.5 K/mcL (0.0-0.6); Eosinophils % 4.1 %; Hemoglobin 13.9 g/dL (12.9-16.9); Immature Granulocytes % 0.3 % (0-4); Lymphocytes # 2.9 K/mcL (0.6-4.6); Lymphocytes % 25.8 %; Mean Corpuscular HGB Conc 33.1 g/dL (31.6-35.5); Mean Corpuscular Hemoglobin 29.2 pg (28.0-33.3); Mean Corpuscular Volume 88.2 fL (83.0-100.0); Mean Platelet Volume 10.2 fL (9.4-12.4); Monocytes # 0.8 K/mcL (0.0-1.3); Monocytes % 6.7 %; Neutrophils # 7.1 K/mcL (1.6-8.9); Platelet Count 252 K/mcL (140-400); Red Blood Count 4.76 M/mcL (4.19-5.50); Red Cell Distribution Width 13.5 % (11.5-14.5); Segmented Neutrophils % 62.2 %
[2017-07-06 04:08] LABS: Alanine Aminotransferase 7 Units/L (7-52); Albumin 3.5 g/dL (3.5-5.7); Albumin/Globulin Ratio 1.1 (1.1-2.2); Alkaline Phosphatase 87 Units/L (34-104); Aspartate Amino Transferase 13 Units/L (13-39); BUN/Creatinine Ratio 16 (6-26); Bilirubin,Total 0.5 mg/dL (0.3-1.0); Blood Urea Nitrogen 23 mg/dL (6-20); Calcium 9.2 mg/dL (8.6-10.3); Carbon Dioxide 26 mEq/L (23-29); Chloride 101 mEq/L (98-107); Globulin 3.3 g/dL (2.4-3.5); Glucose 122 mg/dL (70-105); Osmolality,Calculated 285 (280-300); Potassium 3.3 mEq/L (3.5-5.1); Sodium 135 mEq/L (136-145); Total Protein 6.8 g/dL (6.4-8.9); eGFR For African Americans > 60 (> 60); eGFR For Non-African Americans 51 (> 60)
[2017-07-06] MEDS: Heparin 25,000 UNIT/500 ML D5W 25,000 UNIT/500 ML BAG IVC SCH ×2 (04:42→22:12)
--- NOTE | 2017-07-06 07:37 | Cardiology Progress Note ---
Date of Encounter: 07/06/17 Time of Encounter: 07:35 Assessment and Plan (1) Atrial flutter with rapid ventricular response Current Visit: Yes Status: Acute Per Cardiology: Apparent new onset A. fib. Currently a flutter in the 60s with average heart rate the past 12 hours 94. Will attempt to wean off IV Cardizem drip-- on 17.5mg/hr. EF noted to be 20%. Will avoid calcium channel leonila. We will start Toprol-XL 25 mg by mouth daily. Current systolic blood pressures in the 110s to 130s. Has noted allergy to Coreg. Continue with rate control strategy. Regarding long-term anticoagulation, currently on IV heparin drip. H&H stable. We will need to evaluate long-term anticoagulation prior to discharge. (2) Elevated troponin Current Visit: Yes Status: Acute Per Cardiology: Troponins flat and adynamic with peak of 0.06 in setting of A. fib with RVR. However, EF noted to be down to 20%. Demand ischemia versus non-STEMI. Will discuss with Dr. Washington, suspect catheterization recommended. CR c/s placed. (3) Cardiomyopathy Current Visit: Yes Status: Acute Per Cardiology: Per records preserved EF in 2016. EF now noted to be 20%. Will DC IV fluids. Strict I's and O's and 2 L fluid restriction ordered. Monitor weight daily. Will cancel stress test already ordered for tomorrow. Anticipate catheterization tomorrow. Adding beta leonila. Can consider addition of TIERNEY inhibitor or ARB if able to tolerate and based on allergies. Qualifiers: Cardiomyopathy type: unspecified Qualified Code(s): I42.9 - Cardiomyopathy , unspecified (4) BRENT (acute kidney injury) Current Visit: Yes Status: Acute Per Cardiology: Mild BRENT, appears improving. We will monitor closely with potential catheterization. Discussion w patient/family: The assessment and plan as outlined above was discussed with the patient and/or family members who expressed understanding and agreement. All questions were answered. Thank you for involving us in the care of your patient. Please call with any questions. Subjective Principal diagnosis: Afib Interval history: Patient denies any chest pain or palpitations. Denies any shortness of breath or edema. Denies any bleeding or blood loss. Reports last catheterization a few years ago. Objective Selected Entries 07/06/17 07:00 Temperature 97.9 F Pulse Rate 73 Respiratory Rate 16 Blood Pressure 128/94 O2 Sat by Pulse Oximetry 98 Oxygen Delivery Method CPAP General: Conversant, No Apparent Distress, Other (Somnolent this morning) HEENT: Atraumatic, Normocephaly Cardiac: No Murmur, Other (Irregularly irregular) Lungs: Normal Breath Sounds, No Wheeze, Rales, Rhonchi, Other (Diminished throughout) Neuro: Alert and responsive, No focal deficits noted Abdomen: Other (Obese) Skin: No rashes noted on visualized skin Extremities: No Edema Results 07/06/17 03:34 07/06/17 03:34 Lab Results Laboratory Tests 07/04/17 07/04/17 07/04/17 16:02 16:24 18:21 Hgb Hct Plt Count INR Potassium Creatinine 1.18 Est GFR (Non-Af Amer) Magnesium AST ALT Troponin I 0.04 H* B-Natriuretic Peptide 377 H TSH 1.652 07/05/17 07/05/17 07/05/17 01:25 01:25 07:44 Hgb Hct Plt Count INR Potassium Creatinine 1.64 H Est GFR (Non-Af Amer) Magnesium 1.8 AST ALT Troponin I 0.05 H* 0.06 H* B-Natriuretic Peptide TSH 07/05/17 07/06/17 07/06/17 12:24 03:34 03:34 Hgb 13.9 Hct 42.0 Plt Count 252 INR 1.4 Potassium 3.3 L Creatinine 1.44 H Est GFR (Non-Af Amer) 51 L Magnesium AST 13 ALT 7 Troponin I B-Natriuretic Peptide TSH 07/06/17 03:34 Hgb Hct Plt Count INR Potassium Creatinine Est GFR (Non-Af Amer) Magnesium AST ALT Troponin I 0.05 H* B-Natriuretic Peptide TSH Impressions KUB X-Ray 07/05/17 14:46 IMPRESSION: Nonobstructive bowel gas pattern with a mild to moderate stool volume. D/ / John Desai MD / John Desai MD Interpreting Provider: John Desai MD Echocardiogram 07/05/17 17:57 Impressions: LVEF 20% with global severe LV systolic dysfunction Indeterminate diastolic function. Moderately dilated left atrium. Mild pulmonary hypertension. IVC plethora is noted Poorly Visualized Right Ventricle however seems mildly hypokinetic Mildly dilated right atrium. Left Ventricular Wall Motion: Rest Echo Findings The apex, apical inferior, mid inferior, basal inferior, apical anterior, mid anterior, basal anterior, apical septal, mid inferior septal, basal inferior septal, apical lateral, mid anterior lateral, basal anterior lateral, mid anterior septal, mid inferior lateral, basal anterior septal and basal inferior lateral smith were hypokinetic. Findings: Study Quality * Technically adequate exam. ECG Findings * Atrial fibrillation. Left Ventricle * LVEF 20%. * Indeterminate diastolic function. Right Ventricle * Mild right ventricular hypokinesis. * Poorly Visualized Left Atrium * Moderately dilated left atrium. Right Atrium * Mildly dilated right atrium. Interatrial Septum * No evidence of PFO by color Doppler. Aortic Valve * Trileaflet aortic valve with normal function. Mitral Valve * Normal mitral valve structure and function. Tricuspid Valve * Mild tricuspid regurgitation. * Estimated RVSP is 17 mmHg. * Estimated RA pressure is 20 mmHg. * Mild pulmonary hypertension. Pulmonic Valve * Pulmonic valve not well visualized. Aorta * Normally sized aortic root. Pericardium * The pericardium appears normal. IVC * The IVC is dilated. * IVC plethora is noted ADDENDUM: 07/05/17 1708 Impressions: LVEF 20% with global severe LV systolic dysfunction Indeterminate diastolic function. Moderately dilated left atrium. Mild pulmonary hypertension. IVC plethora is noted Poorly Visualized Right Ventricle however seems mildly hypokinetic Mildly dilated right atrium. LV apical thrombus cannot be ruled out Left Ventricular Wall Motion: Rest Echo Findings The apex, apical inferior, mid inferior, basal inferior, apical anterior, mid anterior, basal anterior, apical septal, mid inferior septal, basal inferior septal, apical lateral, mid anterior lateral, basal anterior lateral, mid anterior septal, mid inferior lateral, basal anterior septal and basal inferior lateral smith were hypokinetic. Findings: Study Quality * Technically adequate exam. ECG Findings * Atrial fibrillation. Left Ventricle * LVEF 20%. * Indeterminate diastolic function. * LV apical thrombus cannot be ruled out Right Ventricle * Mild right ventricular hypokinesis. * Poorly Visualized Left Atrium * Moderately dilated left atrium. Right Atrium * Mildly dilated right atrium. Interatrial Septum * No evidence of PFO by color Doppler. Aortic Valve * Trileaflet aortic valve with normal function. Mitral Valve * Normal mitral valve structure and function. Tricuspid Valve * Mild tricuspid regurgitation. * Estimated RVSP is 17 mmHg. * Estimated RA pressure is 20 mmHg. * Mild pulmonary hypertension. Pulmonic Valve * Pulmonic valve not well visualized. Aorta * Normally sized aortic root. Pericardium * The pericardium appears normal. IVC * The IVC is dilated. * IVC plethora is noted Active Medications Artificial Tears (Akwa Tears) 1 drop BOTH EYES BID PRN PRN Reason: Dry Eye(s) Aspirin (Aspirin Ec) 81 mg PO DAILY CRISTINA Stop: 01/04/18 09:01 Last Admin: 07/05/17 08:17 Dose: 81 mg Dextrose/Water (Dextrose 50% (Syg)) 25 ml IVP AD PRN PRN Reason: Hypoglycemia Stop: 01/03/18 17:38 Glucagon (Glucagen) 1 mg IM ONCE PRN PRN Reason: Hypoglycemia Stop: 01/03/18 17:38 Glucose (Gluctose) 15 gm PO ONCE PRN PRN Reason: Hypoglycemia Stop: 01/03/18 17:38 Glucose (Gluctose) 30 gm PO ONCE PRN PRN Reason: Hypoglycemia Stop: 01/03/18 17:38 Heparin Sodium (Porcine) (Heparin) 9,000 unit IVP Q6HR PRN PRN Reason: SEE COMMENTS Stop: 01/04/18 11:26 Heparin Sodium (Porcine) (Heparin) 4,500 unit IVP Q6H PRN PRN Reason: SEE COMMENTS Stop: 01/04/18 11:26 Diltiazem HCl 125 mg/ Sodium (Chloride) 125 mls @ 2.5 mls/hr IVC .Q24H CRISTINA; 2.5 MG/HR PRN Reason: Protocol Stop: 01/03/18 15:31 Last Titration: 07/06/17 03:01 Dose: Infused Dextrose (Dextrose 5%) 1,000 mls @ 100 mls/hr IVC .Q10H PRN PRN Reason: HYPOGLYCEMIA Stop: 01/03/18 17:38 Azithromycin 500 mg/ Dextrose 250 mls @ 252 mls/hr IVPB Q24H CRISTINA Stop: 01/03/18 20:01 Last Infusion: 07/05/17 22:39 Dose: Infused Ceftriaxone Sodium 2,000 mg/ (Sterile Water) 20 mls @ 600 mls/hr IVP Q24H CRISTINA Stop: 01/03/18 20:01 Last Infusion: 07/06/17 02:10 Dose: Infused Heparin Sodium/Dextrose (Heparin 25,000 Unit/500 Ml D5w) 25,000 unit in 500 mls @ 42.812 mls/hr IVC .[id number] CRISTINA; 14 UNIT/KG/HR PRN Reason: Protocol Stop: 01/04/18 11:31 Last Admin: 07/06/17 04:42 Dose: 9.74 unit/kg/hr, 29.8 mls/hr Sodium Chloride (0.9 % Sodium Chloride) 1,000 mls @ 75 mls/hr IVC .[id number] CRISTINA Stop: 01/04/18 11:31 Last Admin: 07/06/17 03:15 Dose: 75 mls/hr Insulin Human Lispro (Humalog) 0 units SQ TIDAC CRISTINA PRN Reason: Protocol Stop: 01/04/18 07:31 Last Admin: 07/05/17 17:11 Dose: 10 units Insulin Human Lispro (Humalog) 0 units SQ HS CRISTINA PRN Reason: Protocol Stop: 01/03/18 21:01 Last Admin: 07/05/17 20:59 Dose: Not Given Insulin Human Regular (Concentrated (Humulin R U-500) 0 unit SQ QPM CRISTINA PRN Reason: Protocol Stop: 01/04/18 18:01 Last Admin: 07/05/17 17:16 Dose: Not Given Insulin Human Regular (Concentrated (Humulin R U-500) 0 unit SQ 1200 CRISTINA PRN Reason: Protocol Stop: 01/04/18 12:01 Last Admin: 07/05/17 14:18 Dose: Not Given Insulin Human Regular (Concentrated (Humulin R U-500) 0 unit SQ 0800 CRISTINA PRN Reason: Protocol Stop: 01/04/18 08:01 Last Admin: 07/05/17 10:13 Dose: Not Given Levalbuterol HCl (Xopenex) 1.25 mg IH [id number] CRISTINA Stop: 01/03/18 22:01 Last Admin: 07/06/17 03:42 Dose: Not Given Metoprolol Tartrate (Lopressor) 5 mg IVP Q6HR PRN PRN Reason: HR>110 Stop: 01/03/18 20:54 Naloxone HCl (Narcan) 0.4 mg IVP Q2MIN PRN PRN Reason: SEE COMMENTS Stop: 01/03/18 17:27 Naproxen (Naprosyn) 500 mg PO BID CRISTINA PRN Reason: Protocol Stop: 01/03/18 21:01 Last Admin: 07/05/17 20:54 Dose: 500 mg Oxycodone HCl (Roxicodone) 30 mg PO BID CRISTINA Stop: 01/03/18 21:16 Last Admin: 07/05/17 20:54 Dose: 30 mg Pharmacy Profile Note (Patient Taking Own Medication) 1 each OP BID PRN PRN Reason: Itching Pharmacy Profile Note (Patient Taking Own Medication) 1 each PO QAM CRISTINA Stop: 01/04/18 09:01 Last Admin: 07/05/17 10:16 Dose: 1 each Polyethylene Glycol (Miralax) 17 gm PO HS PRN PRN Reason: Constipation Stop: 01/03/18 17:19 Promethazine HCl (Phenergan) 12.5 mg IM Q6HR PRN PRN Reason: Nausea And Vomiting Stop: 01/03/18 21:16 Last Admin: 07/05/17 21:06 Dose: 12.5 mg Senna/Docusate Sodium (Senna Plus) 1 each PO BID CRISTINA PRN Reason: Protocol Stop: 01/03/18 21:01 Last Admin: 07/05/17 20:54 Dose: 1 each - Imaging and Cardiology Echo: report reviewed - EKG Interpretation EKG results cardiology: other (Telemetry reviewed with average heart rate 94 in the past 12 hours, atrial fibrillation, currently a flutter in the 60s) Consult Discharge Plan - Plan [facility]errals: [facility] [Primary Care Provider] -
[2017-07-06] MEDS ORDERED: *HR* Insulin Regular U-500 500 UNIT/ML SQ ONE ×3 (08:30→15:30)
[2017-07-06] MEDS: *HR* OxyCODONE Immed Rel 15 MG TABLET PO SCH ×2 (08:39→20:03)
[2017-07-06] MEDS: Sennosides/Docusate Sodium TABLET PO SCH ×2 (08:40→20:04)
[2017-07-06] MEDS: DEXTROAMPHETAMINE SULFATE 10 MG PO SCH (08:40)
[2017-07-06] MEDS: Aspirin Enteric Coated 81 MG Tablet PO SCH (08:42)
[2017-07-06] MEDS: Insulin LISPRO 300 UNITS/3 ML VIAL SQ SCH ×4 (08:43→22:05)
[2017-07-06] MEDS: Metoprolol XL (24 HR) Succ 25 MG TAB.ER.24H PO SCH (08:44)
[2017-07-06] MEDS: *HR* Insulin Regular U-500 500 UNIT/ML SQ SCH ×3 (08:44→16:28)
[2017-07-06 09:32] LABS: Estimated Average Glucose 263 mg/dl; Hemoglobin A1C 10.8 %
[2017-07-06] MEDS: *HR* Promethazine 25 MG/ML VIAL IM PRN ×2 (10:03→20:07)
--- NOTE | 2017-07-06 12:05 | Internal Med Progress Note ---
Date of Encounter: 07/06/17 Time of Encounter: 11:50 - Assessment and plan (1) Atrial fibrillation with RVR Current Visit: Yes Status: Acute Assessment and plan: new onset atrial flutter/fibrillation with RVR. Received one-time dose therapeutic Lovenox on admission. TSH normal. TTE with EF 20%, moderately dilated left atrium and hypokinestic wall motion abnormalities. Metoprolol started, wean Cardizem drip as able. Cont heparin gtt. Cardiology following. (2) CHF (congestive heart failure) Current Visit: Yes Status: Acute Assessment and plan: new diagnosis. TTE with EF 20% (previously 60% in 2016). With mild lower extremity edema on exam otherwise does not appear overloaded. IV fluids stopped. BB added per cardiology. Holding on Romel due to allergies at this time. [facility] planned for a.m. Strict I and O's, fluid restriction, low NA diet, daily weight. Cardiology following. Qualifiers: Heart failure type: unspecified Heart failure chronicity: unspecified Qualified Code(s): I50.9 - Heart failure, unspecified (3) Constipation due to opioid therapy Current Visit: Yes Status: Acute Assessment and plan: last BM over 5 days ago. ABD exam benign. KUB mild to moderate stool volume. Continue aggressive bowel regimen. (4) Pneumonia Current Visit: Yes Status: Acute Assessment and plan: CXR at [facility] showed right basilar airspace disease with a possible small right pleural effusion. Afebrile, no elevated WBC. Urinary antigens. Continue IV azithromycin, ceftriaxone. Respiratory PCR pending Qualifiers: Pneumonia type: due to unspecified organism Laterality: right Lung location: lower lobe of lung Qualified Code(s): J18.1 - Lobar pneumonia, unspecified organism (5) Diabetes Current Visit: Yes Status: Chronic Assessment and plan: per hx. Uncontrolled, Hgb A1c 10.4%. Suspect secondary to dietary noncompliance. Cont home U-500 insulin. 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 Possibly secondary to acute onset A. fib. Renal function improving with IV fluids over need to stop IV fluids with new onset CHF. Avoid nephrotoxic agents as possible. Monitor repeat renal function. (7) Elevated troponin Current Visit: Yes Status: Acute Assessment and plan: troponin peaked at 0.06. Denied CP; possibly secondary to A. fib, acute kidney injury however with new CHF as noted above; need to rule out ischemic etiology. [facility] planned 07/08/17. Cardiology following. (8) DVT prophylaxis Current Visit: Yes Status: Acute Assessment and plan: heparin gtt - Subjective Interval history: Seen and examined at bedside. Says he does not feel well, laying in bed. Says he is tired and weak but does not elaborate. Discussed with RN the patient apparently had an acute episode of diaphoresis and shortness of breath this morning that resolved with rest. Denies chest pain or shortness of breath all my exam. - Constitutional Vitals: Temp Pulse Resp BP Pulse Ox 97.9 F 83 15 131/85 93 07/06/17 11:01 07/06/17 09:54 07/06/17 09:54 07/06/17 09:54 07/06/17 09:54 General appearance: Present: A&O X 3, morbidly obese, no acute distress, answers questions appropriately - Head Head exam: Present: atraumatic, normocephalic - Eye Eye exam: Present: PERRL, conjuntiva pink, sclera anicteric Pupils: Present: PERRL - Neck Neck exam general surgery: Present: supple, trachea midline. Absent: lymphadenopathy - Respiratory Respiratory exam: Present: CTAB. Absent: accessory muscle use, rales, rhonchi, wheezes - Cardiovascular Cardiovascular exam: Present: irregular rhythm, +S1, +S2, tachycardia. Absent: diastolic murmur, gallop, rubs, systolic murmur - GI/Abdominal GI/Abdominal exam: Present: normal bowel sounds, soft, no peritoneal signs. Absent: distended, tenderness - Extremities Exam Extremities exam: Present: warm, radial pulses palpable and symmetrical. Absent : calf tenderness, cyanotic, pedal edema - Neurological Exam Neurological exam: Present: CN II-XII intact, oriented X3, no focal deficits. Absent: pronater drift, facial droop, speech deficit - Skin Skin exam: Present: dry, intact Internal Medicine: Result - Labs CBC & Chem 7: 07/06/17 03:34 07/06/17 03:34 Labs: Short CBC 07/05/17 07/06/17 Range/Units 12:24 03:34 WBC 10.1 11.4 H (4.3-11.1) K/mcL Hgb 14.9 13.9 (12.9-16.9) g/dL Hct 45.0 42.0 (37.5-50.1) % Plt Count 262 252 (140-400) K/mcL Neutrophils # 7.1 (1.6-8.9) K/mcL BMP 07/06/17 03:34 Sodium 135 L Potassium 3.3 L Chloride 101 Carbon Dioxide 26 BUN 23 H Creatinine 1.44 H Glucose 122 H Calcium 9.2 Cardiac Enzymes 07/06/17 Range/Units 03:34 Troponin I 0.05 H* (< 0.04) ng/mL Liver Function 07/06/17 Range/Units 03:34 Total Bilirubin 0.5 (0.3-1.0) mg/dL AST 13 (13-39) Units/L ALT 7 (7-52) Units/L Alkaline Phosphatase 87 (34-104) Units/L Albumin 3.5 (3.5-5.7) g/dL - ABG Interpretation ABG results: PT/INR, D-dimer PT 15.1 Seconds (9.4-12.1) H 07/05/17 12:24 - Impressions Impressions KUB X-Ray 07/05/17 14:46 IMPRESSION: Nonobstructive bowel gas pattern with a mild to moderate stool volume. D/ / John Desai MD / John Desai MD Interpreting Provider: John Desai MD Echocardiogram 07/05/17 17:57 Impressions: LVEF 20% with global severe LV systolic dysfunction Indeterminate diastolic function. Moderately dilated left atrium. Mild pulmonary hypertension. IVC plethora is noted Poorly Visualized Right Ventricle however seems mildly hypokinetic Mildly dilated right atrium. Left Ventricular Wall Motion: Rest Echo Findings The apex, apical inferior, mid inferior, basal inferior, apical anterior, mid anterior, basal anterior, apical septal, mid inferior septal, basal inferior septal, apical lateral, mid anterior lateral, basal anterior lateral, mid anterior septal, mid inferior lateral, basal anterior septal and basal inferior lateral smith were hypokinetic. Findings: Study Quality * Technically adequate exam. ECG Findings * Atrial fibrillation. Left Ventricle * LVEF 20%. * Indeterminate diastolic function. Right Ventricle * Mild right ventricular hypokinesis. * Poorly Visualized Left Atrium * Moderately dilated left atrium. Right Atrium * Mildly dilated right atrium. Interatrial Septum * No evidence of PFO by color Doppler. Aortic Valve * Trileaflet aortic valve with normal function. Mitral Valve * Normal mitral valve structure and function. Tricuspid Valve * Mild tricuspid regurgitation. * Estimated RVSP is 17 mmHg. * Estimated RA pressure is 20 mmHg. * Mild pulmonary hypertension. Pulmonic Valve * Pulmonic valve not well visualized. Aorta * Normally sized aortic root. Pericardium * The pericardium appears normal. IVC * The IVC is dilated. * IVC plethora is noted ADDENDUM: 07/05/17 [id number] Impressions: LVEF 20% with global severe LV systolic dysfunction Indeterminate diastolic function. Moderately dilated left atrium. Mild pulmonary hypertension. IVC plethora is noted Poorly Visualized Right Ventricle however seems mildly hypokinetic Mildly dilated right atrium. LV apical thrombus cannot be ruled out Left Ventricular Wall Motion: Rest Echo Findings The apex, apical inferior, mid inferior, basal inferior, apical anterior, mid anterior, basal anterior, apical septal, mid inferior septal, basal inferior septal, apical lateral, mid anterior lateral, basal anterior lateral, mid anterior septal, mid inferior lateral, basal anterior septal and basal inferior lateral smith were hypokinetic. Findings: Study Quality * Technically adequate exam. ECG Findings * Atrial fibrillation. Left Ventricle * LVEF 20%. * Indeterminate diastolic function. * LV apical thrombus cannot be ruled out Right Ventricle * Mild right ventricular hypokinesis. * Poorly Visualized Left Atrium * Moderately dilated left atrium. Right Atrium * Mildly dilated right atrium. Interatrial Septum * No evidence of PFO by color Doppler. Aortic Valve * Trileaflet aortic valve with normal function. Mitral Valve * Normal mitral valve structure and function. Tricuspid Valve * Mild tricuspid regurgitation. * Estimated RVSP is 17 mmHg. * Estimated RA pressure is 20 mmHg. * Mild pulmonary hypertension. Pulmonic Valve * Pulmonic valve not well visualized. Aorta * Normally sized aortic root. Pericardium * The pericardium appears normal. IVC * The IVC is dilated. * IVC plethora is noted Consult Discharge Plan - Plan [facility]errals: [facility] [Primary Care Provider] -
[2017-07-06 13:07] LABS: Adenovirus Not Detected (Not Detect); Bordetella Pertussis Not Detected (Not Detect); Chlamydophila pneumoniae Not Detected (Not Detect); Coronavirus 229E Not Detected (Not Detect); Coronavirus HKU1 Not Detected (Not Detect); Coronavirus NL63 Not Detected (Not Detect); Coronavirus OC43 Not Detected (Not Detect); Human Metapneumovirus Not Detected (Not Detect); Human Rhinovirus/Enterovirus Not Detected (Not Detect); Influenza A Subtype 2009 H1 Not Detected (Not Detect); Influenza A Untypeable Not Detected (Not Detect); Influenza B Not Detected (Not Detect); Mycoplasma pneumoniae Not Detected (Not Detect); Parainfluenza Virus 1 Not Detected (Not Detect); Parainfluenza Virus 2 Not Detected (Not Detect); Parainfluenza Virus 3 Not Detected (Not Detect); Parainfluenza Virus 4 Not Detected (Not Detect); Respiratory Syncytial Virus Not Detected (Not Detect)
[2017-07-06] MEDS: Bisacodyl 10 MG RECTAL SUPPOSITORY RC SCH (16:30)
[2017-07-06] MEDS: cefTRIAXone 2,000 MG in Water for inj. (sterile) 20 ML 20 ML IVP SCH (20:04)
[2017-07-06] MEDS: Azithromycin 500 MG in D5% in Water 250 ML IVPB SCH (20:04)
[2017-07-07] MEDS: Levalbuterol Neb 1.25 MG/3 ML IH SCH ×4 (03:50→22:30)
[2017-07-07 04:19] LABS: Basophils # 0.1 K/mcL (0.0-0.2); Eosinophils # 0.4 K/mcL (0.0-0.6); Eosinophils % 4.3 %; Hematocrit 42.3 % (37.5-50.1); Hemoglobin 13.6 g/dL (12.9-16.9); Immature Granulocytes % 0.3 % (0-4); Lymphocytes # 2.5 K/mcL (0.6-4.6); Mean Corpuscular HGB Conc 32.2 g/dL (31.6-35.5); Mean Corpuscular Hemoglobin 28.7 pg (28.0-33.3); Mean Corpuscular Volume 89.2 fL (83.0-100.0); Mean Platelet Volume 10.4 fL (9.4-12.4); Monocytes # 0.7 K/mcL (0.0-1.3); Monocytes % 8.1 %; Neutrophils # 5.4 K/mcL (1.6-8.9); Platelet Count 263 K/mcL (140-400); Red Blood Count 4.74 M/mcL (4.19-5.50); Red Cell Distribution Width 13.6 % (11.5-14.5); Segmented Neutrophils % 59.3 %
[2017-07-07 04:37] LABS: Alanine Aminotransferase 8 Units/L (7-52); Albumin 3.5 g/dL (3.5-5.7); Albumin/Globulin Ratio 1.1 (1.1-2.2); Alkaline Phosphatase 89 Units/L (34-104); Aspartate Amino Transferase 14 Units/L (13-39); BUN/Creatinine Ratio 22 (6-26); Bilirubin,Total 0.4 mg/dL (0.3-1.0); Blood Urea Nitrogen 30 mg/dL (6-20); Calcium 9.4 mg/dL (8.6-10.3); Carbon Dioxide 28 mEq/L (23-29); Chloride 98 mEq/L (98-107); Globulin 3.3 g/dL (2.4-3.5); Glucose 229 mg/dL (70-105); Osmolality,Calculated 295 (280-300); Sodium 136 mEq/L (136-145); Total Protein 6.8 g/dL (6.4-8.9); eGFR For African Americans > 60 (> 60); eGFR For Non-African Americans 55 (> 60)
[2017-07-07] MEDS ORDERED: *HR* Insulin Regular U-500 500 UNIT/ML SQ ONE ×3 (08:00→22:45)
[2017-07-07] MEDS: Sennosides/Docusate Sodium TABLET PO SCH ×2 (08:36→23:14)
[2017-07-07] MEDS: Aspirin Enteric Coated 81 MG Tablet PO SCH (08:36)
[2017-07-07] MEDS: Metoprolol XL (24 HR) Succ 25 MG TAB.ER.24H PO SCH ×3 (08:37→23:14)
[2017-07-07] MEDS: *HR* Insulin Regular U-500 500 UNIT/ML SQ SCH ×3 (08:38→18:38)
[2017-07-07] MEDS: Insulin LISPRO 300 UNITS/3 ML VIAL SQ SCH ×4 (08:39→23:30)
[2017-07-07] MEDS: *HR* OxyCODONE Immed Rel 15 MG TABLET PO SCH ×2 (08:40→23:15)
[2017-07-07] MEDS: Bisacodyl 10 MG RECTAL SUPPOSITORY RC SCH (08:41)
[2017-07-07] MEDS ORDERED: Perflutren Lipid Microsphere 1.3 ML in 0.9 % Sodium Chloride 8.7 ML IVP ONE (08:53)
--- NOTE | 2017-07-07 08:57 | Event Note ---
Date of Encounter: 07/07/17 Time of Encounter: 09:00 - Cardiology Event Note HR noted to be 90's - 100's, afib. SBP stable 110's - 140's. Will increase Toprol XL to 50mg PO BID. Plan for LHC today. Echo reviewed with Dr. Vazquez, will repeat limited echo with definity to reevaluate for possible LV apical thrombus. Remains on IV Hep. gtt. Will need to address care home AC after LHC. Discussed with patient and family, agreeable to proceed, all questions answered.
--- NOTE | 2017-07-07 09:30 | Internal Med Progress Note ---
Date of Encounter: 07/07/17 Time of Encounter: 09:28 - Assessment and plan (1) Atrial fibrillation with RVR Current Visit: Yes Status: Acute Assessment and plan: new onset atrial flutter/fibrillation with RVR (HRs in 130s). Received one-time dose therapeutic Lovenox on admission. TSH normal. TTE with EF 20%, moderately dilated left atrium and hypokinestic wall motion. Initially managed with Cardizem gtt however this was weaned with newly found systolic dysfunction. HR remains uncontrolled on 07/07 exam. BB uptitrated per cardiology. Continue heparin gtt. Cardiology following. (2) CHF (congestive heart failure) Current Visit: Yes Status: Acute Assessment and plan: new diagnosis. TTE with EF 20%, severe systolic dysfunction, moderately dilated left atrium, unable to rule out LV apical thrombus (EF previously 60% in 2016). With mild lower extremity edema on exam otherwise does not appear overtly overloaded. IV fluids stopped. Has allergy to TIERNEY and coreg. Metoprolol added per cardiology. Strict I and O's, fluid restriction, low NA diet, daily weight. [facility] planned 07/07. Limited echo with definity to assess for possible LV thrombus. Cardiology following Qualifiers: Heart failure type: unspecified Heart failure chronicity: unspecified Qualified Code(s): I50.9 - Heart failure, unspecified (3) CAD (coronary artery disease) Current Visit: Yes Status: Chronic Assessment and plan: with hx successful PCI in 2006 with 3 stents and most recently 2-2 1/2 years ago at the [facility] with 2 stents placed per patient report. With new cardiomyopathy, systolic dysfunction and elevated troponin. Denies chest pain. [facility] planned 07/07/17. Cont home ASA (of note patient reports allergy to prasugel , Plavix). Cardiology following. Qualifiers: Coronary Disease-Associated Artery/Lesion type: [place] artery [place] vs. transplanted heart: [place] heart Associated angina: angina presence unspecified Qualified Code(s): I25.10 - Atherosclerotic heart disease of [place] coronary artery without angina pectoris (4) Constipation due to opioid therapy Current Visit: Yes Status: Acute Assessment and plan: Takes oxycodone at home for chronic back pain. Presented with 5 days of constipation. KUB mild to moderate stool volume. Now having BMs. Continue aggressive bowel regimen. (5) Pneumonia Current Visit: Yes Status: Acute Assessment and plan: CXR at [place] showed right basilar airspace disease with a possible small right pleural effusion. Afebrile, no elevated WBC. Urinary antigens, resp PCR negative. Continue IV azithromycin, ceftriaxone. Qualifiers: Pneumonia type: due to unspecified organism Laterality: right Lung location: lower lobe of lung Qualified Code(s): J18.1 - Lobar pneumonia, unspecified organism (6) Diabetes Current Visit: Yes Status: Chronic Assessment and plan: per hx. Uncontrolled, Hgb A1c 10.4%. Suspect secondary to dietary noncompliance. Cont home U-500 insulin. 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 Possibly secondary to acute onset A. fib. Renal function improving with IV fluids however need to stop IV fluids with new onset CHF. Avoid nephrotoxic agents as possible. Monitor repeat renal function. Renal function improving as of 07/07 (8) Elevated troponin Current Visit: Yes Status: Acute Assessment and plan: troponin peaked at 0.06. Denied CP; possibly secondary to A. fib, acute kidney injury however with new CHF as noted above; need to rule out ischemic etiology. [facility] planned 07/08/17. Cardiology following. (9) DVT prophylaxis Current Visit: Yes Status: Acute Assessment and plan: heparin gtt - Subjective Interval history: Seen and examined at bedside; sitting on edge of bed. Says he feels significantly improved from yesterday. Having intermittent shortness of breath that is worse with exertion and relieved with rest. No chest pain. Says he had another BM last night, still feels like he is constipated but ABV pain/ bloating significantly improved. - Constitutional Vitals: Temp Pulse Resp BP Pulse Ox 97.6 F 108 18 127/87 97 07/07/17 06:49 07/07/17 06:49 07/07/17 06:49 07/07/17 06:49 07/07/17 06:49 General appearance: Present: A&O X 3, morbidly obese, no acute distress, answers questions appropriately - Head Head exam: Present: atraumatic, normocephalic - Eye Eye exam: Present: PERRL, conjuntiva pink, sclera anicteric Pupils: Present: PERRL - Neck Neck exam general surgery: Present: supple, trachea midline. Absent: lymphadenopathy - Respiratory Respiratory exam: Present: CTAB. Absent: accessory muscle use, rales, rhonchi, wheezes - Cardiovascular Cardiovascular exam: Present: RRR, +S1, +S2. Absent: diastolic murmur, gallop, rubs, systolic murmur - GI/Abdominal GI/Abdominal exam: Present: normal bowel sounds, soft, no peritoneal signs. Absent: distended, tenderness - Extremities Exam Extremities exam: Present: pedal edema, warm, radial pulses palpable and symmetrical. Absent: calf tenderness, cyanotic - Neurological Exam Neurological exam: Present: CN II-XII intact, oriented X3, no focal deficits. Absent: pronater drift, facial droop, speech deficit - Skin Skin exam: Present: dry, intact Internal Medicine: Result - Labs CBC & Chem 7: 07/07/17 03:21 07/07/17 03:21 Labs: Short CBC 07/07/17 Range/Units 03:21 WBC 9.1 (4.3-11.1) K/mcL Hgb 13.6 (12.9-16.9) g/dL Hct 42.3 (37.5-50.1) % Plt Count 263 (140-400) K/mcL Neutrophils # 5.4 (1.6-8.9) K/mcL BMP 07/07/17 03:21 Sodium 136 Potassium 4.0 Chloride 98 Carbon Dioxide 28 BUN 30 H Creatinine 1.34 H Glucose 229 H Calcium 9.4 Liver Function 07/07/17 Range/Units 03:21 Total Bilirubin 0.4 (0.3-1.0) mg/dL AST 14 (13-39) Units/L ALT 8 (7-52) Units/L Alkaline Phosphatase 89 (34-104) Units/L Albumin 3.5 (3.5-5.7) g/dL - ABG Interpretation ABG results: PT/INR, D-dimer PT 15.1 Seconds (9.4-12.1) H 07/05/17 12:24 - Impressions Impressions Chest X-Ray 07/04/17 17:54 IMPRESSION: No significant change compared to prior study. Lung volumes are low with some vascular crowding and minimal streaky opacities at the bases that likely reflect atelectasis. No definite focal lung opacity or consolidation. D/ / 07/04/2017 22:06:49 Williams Cheng MD / anuel Interpreting Provider: Williams Cheng MD Chest X-Ray 07/06/17 16:12 IMPRESSION: No acute abnormality. Cardiomegaly. D/ / Royce Moreno MD / Royce Moreno MD Interpreting Provider: Royce Moreno MD Consult Discharge Plan - Plan Referrals: [facility] [Primary Care Provider] -
[2017-07-07] MEDS: DEXTROAMPHETAMINE SULFATE 10 MG PO SCH (10:22)
[2017-07-07] MEDS ORDERED: Perflutren Lipid Microsphere 2 ML VIAL ONE (15:24)
[2017-07-07] MEDS ORDERED: ISOVUE-370 200 ML INFUS..BTL IV ONE (15:38)
[2017-07-07] MEDS: Heparin 25,000 UNIT/500 ML D5W 25,000 UNIT/500 ML BAG IVC SCH (15:38)
[2017-07-07] MEDS ORDERED: Heparin 1,000 UNITS/500 mL 500 ML ONE (15:38)
[2017-07-07] MEDS ORDERED: *HR* Heparin 10,000 UNIT/10 ML VIAL ONE (15:38)
[2017-07-07] MEDS ORDERED: 0.9 % Sodium Chloride 2,000 ML ONE (15:38)
[2017-07-07] MEDS ORDERED: Nitroglycerin 1,000 MCG/10 ML VIAL IV ONE (15:39)
[2017-07-07] MEDS ORDERED: *HR* Midazolam HCl 2 MG/2 ML VIAL ONE ×2 (16:17→16:35)
[2017-07-07] MEDS: 0.9 % Sodium Chloride 1,000 ML IVC SCH (17:35)
[2017-07-07] MEDS: cefTRIAXone 2,000 MG in Water for inj. (sterile) 20 ML 20 ML IVP SCH (23:11)
[2017-07-07] MEDS: Azithromycin 250 MG TABLET PO SCH (23:15)
[2017-07-07] MEDS ORDERED: Simethicone 80 MG TAB.CHEW PO ONE (23:24)
[2017-07-07] MEDS: *HR* Promethazine 25 MG/ML VIAL IV PRN (23:38)
[2017-07-08 01:02] LABS: Basophils # 0.1 K/mcL (0.0-0.2); Basophils % 0.8 %; Eosinophils # 0.3 K/mcL (0.0-0.6); Eosinophils % 4.6 %; Hematocrit 43.2 % (37.5-50.1); Immature Granulocytes % 0.4 % (0-4); Lymphocytes # 1.3 K/mcL (0.6-4.6); Lymphocytes % 17.6 %; Mean Corpuscular HGB Conc 32.4 g/dL (31.6-35.5); Mean Corpuscular Hemoglobin 29.1 pg (28.0-33.3); Mean Corpuscular Volume 89.8 fL (83.0-100.0); Mean Platelet Volume 10.5 fL (9.4-12.4); Monocytes # 0.6 K/mcL (0.0-1.3); Monocytes % 7.5 %; Neutrophils # 5.2 K/mcL (1.6-8.9); Platelet Count 265 K/mcL (140-400); Red Blood Count 4.81 M/mcL (4.19-5.50); Red Cell Distribution Width 13.9 % (11.5-14.5); Segmented Neutrophils % 69.1 %
[2017-07-08 01:19] LABS: Alanine Aminotransferase 8 Units/L (7-52); Albumin 3.6 g/dL (3.5-5.7); Albumin/Globulin Ratio 1.1 (1.1-2.2); Alkaline Phosphatase 99 Units/L (34-104); Aspartate Amino Transferase 16 Units/L (13-39); BUN/Creatinine Ratio 23 (6-26); Bilirubin,Total 0.4 mg/dL (0.3-1.0); Blood Urea Nitrogen 28 mg/dL (6-20); Calcium 9.4 mg/dL (8.6-10.3); Carbon Dioxide 23 mEq/L (23-29); Chloride 102 mEq/L (98-107); Globulin 3.4 g/dL (2.4-3.5); Glucose 347 mg/dL (70-105); Osmolality,Calculated 297 (280-300); Potassium 4.5 mEq/L (3.5-5.1); Sodium 134 mEq/L (136-145); eGFR For African Americans > 60 (> 60); eGFR For Non-African Americans > 60 (> 60)
[2017-07-08 01:37] LABS: Heparin anti-factor XA UFH 0.94 IU/mL (0.30-0.70)
[2017-07-08] MEDS: Levalbuterol Neb 1.25 MG/3 ML IH SCH ×4 (03:34→21:58)
[2017-07-08] MEDS: Insulin LISPRO 300 UNITS/3 ML VIAL SQ SCH ×4 (07:30→21:11)
--- NOTE | 2017-07-08 08:02 | Invasive Diagnostic Lab Proc ---
Name: Jef Madera Date of Study: 07/07/2017 Date: 1960 Ht: 74.0in Medical Record#: [id number] Age: 56 Wt: 332.90lb Gender: Male BSA: 2.7 Order #: [id number] BMI: 42.72 Physicians Procedure Physician: Oniel Lee DO Referring MD: Referring MD: Staff Name Position Time In April Diaz RN Monitor 04:18 PM Rustam Hogan RN Ncr Operator 04:18 PM Adelaide Wray RT Scrub 04:25 PM Indications Indication Cardiomyopathy Non-Stemi Procedures Performed Procedure L HRT ARTERY/VENTRICLE ANGIO Pre-Procedure Checklist Informed consent is complete signed and on chart. H&P is on chart. ID band is on and ID verified with patient. Patient NPO for procedure The procedure was described for the patient and questions were answered. Blood Pressure: 103/79 ECG is on chart. Rhythm: Atrial Fibrillation Plan of Care Patient will tolerate the procedure without complications. Adequate level of comfort will be maintained. Hemodynamics will remain stable Patient will recover from procedure without complications. Respiratory function will be maintained. Cardiac rhythm will remain stable. Patient temperature will be maintained. Patient and/or family have verbalized understanding of the procedure. 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 RR (bpm) LOC 03:54 PM 127 / 87 108 97 % 18 5 = Fully awake and oriented or at pre-proc level 04:18 PM / % 5 = Fully awake and oriented or at pre-proc level 04:18 PM / % 4 = Oriented but drowsy 04:18 PM 103 / 79 110 99 % 19 04:24 PM 108 / 29 131 94 % 23 04:28 PM 116 / 81 125 95 % 31 04:33 PM 126 / 93 107 99 % 18 04:39 PM 133 / 62 105 100 % 20 04:44 PM 86 / 50 103 96 % 16 04:44 PM 103 / 85 119 99 % 21 04:49 PM 128 / 90 120 98 % 13 Procedural Medications Time Medication Dose Units Method Given By 04:18 PM Oxygen 2 L/min nasal cannula Rustam Hogan RN 04:18 PM Versed 2 mg Intravenous Rustam Hogan RN 04:36 PM Versed 1 mg Intravenous Rustam Hogan RN 04:36 PM Lidocaine 2% 10 ml Subcutaneous Oniel Lee DO ASA Classification: CLASS III- Severe systemic disease (i.e. prior AMI, diabetes with vascular complications, morbid obesity) Brian Score Preprocedure Postprocedure Activity 2- Moves 4 extremities sustained head lift Activity 2- Moves 4 extremities sustained head lift Circulation 2- SBP +/= 20 points of pre-anesthetic level Circulation 2- SBP +/= 20 points of pre-anesthetic level Consciousness 2- Awake and alert oriented x 3 Consciousness 2- Awake and alert oriented x 3 O2 Saturation 2- Able to maintain O2 satruation of 92% on room air O2 Saturation 2- Able to maintain O2 satruation of 92% on room air Respiratory 2- Able to deep breathe and cough well Respiratory 2- Able to deep breathe and cough well Total Score 10 Total Score 10 Contrast Agent: Isovue Diagnostic Contrast: 80 ml Total Contrast: 80 ml Fluoro Dose: 379 mGy Procedure Log Time Note Enter By 04:14 PM Pt arrived to [facility] 2 at 16:14 [facility] 04:14 [facility] ASA Class CLASS III- Severe systemic disease (i.e. prior AMI, diabetes with vascular complications, morbid obesity) [facility] Meet and greet completed [facility] 04:14 PM Sign in performed according to hospital policy. [facility] 04:14 PM [facility] start [facility] Patient charges- Angio tray pack, Navilyst 3mm J, Pulse Oximetry and ACIST tubing and transducer jcallihan 04:18 PM CathStat 04:18 PM Vitals capture started with the following parameters, Patient=Adult, Interval=5 min, Initial Wqogeytx=194 mmHg, Deflation Rate=5 mmHg, Cuff placed on Right Arm 04:18 PM Hair removed from procedure site in holding area using clippers. Bilateral groin prepped with Chloraprep by April Diaz RN, then patient was draped. Skin intact. [email or web address] 04:18 PM Time: 16:18 Patient comfortable and pain free: Yes [email or web address] 04:18 PM Time: 16:18LOC: 5 = Fully awake and oriented or at pre-proc level [email or web address] 04:18 PM Time: 16:18 Oxygen on at 2 L/min per nasal cannula by Rustam Hogan RN 04:18 PM Time: 16:18 Versed 2 mg Intravenous Given by Rustam Hogan RN 04:18 PM VM=911 bpm, WSQY=568/79 mmhg, SpO2=99.0 %, Resp=19 B/min, Comment=afib 04:18 PM April Diaz RN Position: Monitor Time in: 16:18 brittanie 04:18 PM Rustam Hogan RN Position: Ncr Operator Time in: 16:18 brittanie 04:21 PM Pressure channel 2 zeroed. 04:24 PM MK=832 bpm, BIGH=640/29 mmhg, SpO2=94.0 %, Resp=23 B/min, Comment=afib 04:25 PM Adelaide Wray Position: Scrub Time in: 16:25 [email or web address] 04:28 PM EK=396 bpm, IIDP=398/81 mmhg, SpO2=95.0 %, Resp=31 B/min, Comment=afib 04:31 PM Case Delayed no, inpatient [email or web address] 04:33 PM LA=045 bpm, SMEM=563/93 mmhg, SpO2=99.0 %, Resp=18 B/min, Comment=afib 04:34 PM Time: 16:18LOC: 4 = Oriented but drowsy [email or web address] 04:34 PM Time: 16:18 Patient comfortable and pain free: Yes [email or web address] 04:35 PM Time out performed according to hospital policy [email or web address] 04:36 PM Time: 16:36 Versed 1 mg Intravenous Given by Rustam Hogan RN 04:36 PM Time: 16:36 10 ml Lidocaine 2% to right groin Subcutaneous Given by Oniel Lee, DO [email or web address] 04:39 PM GK=202 bpm, VFEB=463/62 mmhg, FcP4=091.0 %, Resp=20 B/min, Comment=afib 04:39 PM Micro-Introducer Kit utilized for sheath placement [email or web address] 04:40 PM Access obtained by percutaneous puncture. 6Fr 10cm Terumo [place] sheath placed in right Femoral artery. [id number] [email or web address] 04:40 PM 6Fr FR 4 catheter inserted over the wire DN [email or web address] 04:41 PM Catheter selectively placed in left ventricle [email or web address] 04:41 PM Recorded Pressure: LV, OK=850, Condition=Condition 1 (Left Ventricle) LV 106/12/16 04:41 PM Recorded Pressure: LV, Ao, NI=851, Condition=Condition 1 (Left Ventricle) LV 118/17/26, (Aorta) Ao 112/77/96 04:42 PM Bolus angiogram of left Ventricle complete: hand injected for a total of 10 mls [email or web address] 04:42 PM RCA angiography performed in multiple views. [email or web address] 04:42 PM Catheter removed [email or web address] 04:42 PM 6Fr FL 4 catheter inserted over the wire DN jcallihan 04:43 PM Recorded Pressure: Ao, SQ=402, Condition=Condition 1 (Aorta) Ao 106/72/89 04:44 PM SZ=285 bpm, NIBP=86/50 mmhg, SpO2=96.0 %, Resp=16 B/min, Comment=afib 04:44 PM NIBP STAT measurement started. 04:44 PM LCA angiography performed in multiple views. [email or web address] 04:44 PM TL=577 bpm, BSFV=393/85 mmhg, SpO2=99 %, Resp=21 B/min 04:45 PM Recorded Pressure: Ao, WN=746, Condition=Condition 1 (Aorta) Ao 108/78/93 04:46 PM Coronary Dominance: Left [email or web address] 04:46 PM Catheter removed [email or web address] 04:46 PM Lesion found in Mid LAD. Pre Stenosis: 40 Pre ALIS Flow: [email or web address] 04:46 PM Mid/Distal Left Anterior Descending Coronary Artery and diagonal branches with 40% stenosis. If graft is supplying this area, 0 % stenosis [email or web address] 04:46 PM Lesion found in 1st Marginal. Pre Stenosis: 40 Pre ALIS Flow: [email or web address] 04:46 PM Circumflex, Obtuse Marginal, Left Posterior Descending, and Left Posterolateral Coronary Arteries with 40 % stenosis. If graft is supplying this area, 0 % stenosis [email or web address] 04:46 PM Procedure completed at 16:46 [email or web address] 04:47 PM Did you address ALIS flow and Dominance? Yes [email or web address] 04:47 PM Isovue 370 - 200ml,1 Bottle(s) used. [email or web address] 04:47 PM Sign out completed: Radiation Dose 379 mGy Fluoro Time: 1.3 Isovue 370 - 200ml contrast 80 ml given by Oniel Lee DO. Complications: NoneCardiac Rehab Consult needed: NoConfirmed administered medications: Yes [email or web address] 04:47 PM Estimated Blood Loss: minimal [email or web address] 04:47 PM Post ECG Atrial Fibrillation jcallihan 04:48 PM Post Blood Pressure 103/85 [email or web address] 04:49 PM EI=663 bpm, ZMKK=908/90 mmhg, SpO2=98.0 %, Resp=13 B/min, Comment=afib 04:50 PM Arterial sheath pulled, Angio-seal closure device used and was Successful [id number] S/N. jcallihan 04:52 PM Estimated Blood Loss: minimal [email or web address] 04:52 PM Post ECG Atrial Fibrillation [email or web address] 04:52 PM Information taught Cardiac Cath jcallihan 04:52 PM Education needs Procedure, Plan of Care, and Responsibilities of Patient in Care [email or web address] 04:52 PM Learning barriers :None [email or web address] 04:52 PM Education Methods Verbal [email or web address] 04:52 PM Education evaluation Able to repeat information [email or web address] 04:52 PM Site status No bleeding/hematoma - Rt Groin as reported by Adelaide Wray RT at 16:52 [email or web address] 04:58 PM Plavix, Effient or Brilinta given No jcallihan 04:58 PM Delay to floor No [email or web address] 04:58 PM Patient out of room: 16:58 [email or web address] 04:58 PM Family placed in consult room. [email or web address] 04:58 PM Complications: None [email or web address] 04:58 PM Fluoro Time: 1.3 jcallihan 05:02 PM Report given to Mitzi ARRIOLA Pt taken to E Room #28. 17:02 [email or web address] Complications Complication None None Hemodynamics Pressures Site Systolic/A Wave Diastolic/V Wave Mean LV 106 12 16 LV 118 17 26 AO 112 77 96 AO 106 72 89 AO 108 78 93 Post Procedure Information Blood Pressure: 103/85 mmHg Rhythm: Atrial Fibrillation Post procedural instructions were given Closure Device Time Device Success/Fail 07/07/2017 4:50:00 PM Angio-Seal VIP Successful Site Checks Time Location Status Staff Sheath In? Note 04:52 PM Rt Groin No bleeding/hematoma Adelaide Wray RT Pulses Time Site Pre-Procedure Post-Procedure Note 07/07/2017 4:22:00 PM Bilateral DP & PT 1+ 07/07/2017 4:22:00 PM Bilateral radial 2+ Updated by Rustam Hogan RN on 07/07/2017 5:05:12 PM electronically signed on 07/07/2017 5:05:44 PM with status of Final
[2017-07-08] MEDS: Metoprolol XL (24 HR) Succ 25 MG TAB.ER.24H PO SCH ×2 (09:19→21:08)
[2017-07-08] MEDS: *HR* OxyCODONE Immed Rel 15 MG TABLET PO SCH ×2 (09:19→21:07)
[2017-07-08] MEDS: Aspirin Enteric Coated 81 MG Tablet PO SCH (09:20)
[2017-07-08] MEDS: Sennosides/Docusate Sodium TABLET PO SCH ×2 (09:20→21:08)
[2017-07-08] MEDS: 0.9 % Sodium Chloride 1,000 ML IVC SCH (09:21)
[2017-07-08] MEDS: *HR* Insulin Regular U-500 500 UNIT/ML SQ SCH ×2 (09:22→12:34)
[2017-07-08] MEDS: Bisacodyl 10 MG RECTAL SUPPOSITORY RC SCH (09:22)
[2017-07-08] MEDS: Heparin 25,000 UNIT/500 ML D5W 25,000 UNIT/500 ML BAG IVC SCH (10:06)
[2017-07-08] MEDS: DEXTROAMPHETAMINE SULFATE 10 MG PO SCH (10:26)
[2017-07-08] MEDS ORDERED: *HR* Insulin Regular U-500 500 UNIT/ML SQ ONE (12:00)
--- NOTE | 2017-07-08 12:46 | Cardiology Progress Note ---
Date of Encounter: 07/08/17 Time of Encounter: 12:45 Assessment and Plan (1) Atrial flutter with rapid ventricular response Current Visit: Yes Status: Acute Per Cardiology: Apparent new onset A. fib. Noted to have recurrence of RVR yesterday. VQ showed very low probability for PE. Currently a flutter in the 100s with average heart rate the past 12 hours 112bpm. On Toprol-XL 50 mg PO BID. SBP 100' s-130's. Will increase Toprol Xl to 75mg PO BID. Found to have apical thrombus- - DCCV contraindicated. Continue with rate control strategy. Again, recommend avoid CCB since EF down to 20-25%. Remains of Cardizem gtt. Can consider amio or digoxin (discussed with Dr. De Dios). Regarding long-term anticoagulation, currently on IV heparin drip, will need bridging since now found to have thrombus. Recs to initiate Coumadin with target INR 2.0-3.0. (2) Left ventricular apical thrombus Current Visit: Yes Status: Acute Per Cardiology: Repeat limited echo with Definity shows small echodensity of the apical/septal and apical/inferior LV suggestive of thrombus. Currently on IV heparin drip. Recommend continue with bridging. We will initiate Coumadin. (3) Elevated troponin Current Visit: Yes Status: Acute Per Cardiology: Troponins flat and adynamic with peak of 0.06 in setting of A. fib with RVR. However, EF noted to be down to 20%. Status post catheterization-- nonobstructive CAD. Suspect demand ischemia. (4) CAD (coronary artery disease) Current Visit: Yes Status: Chronic Per Cardiology: Catheterization showed mid LAD 40%, distal circumflex 40%, OM1 40% lesions. Previous stents to proximal LAD patent. On asa, bb, will add statin. LFTs stable. Qualifiers: Coronary Disease-Associated Artery/Lesion type: [place] artery [place] vs. transplanted heart: [place] heart Associated angina: without angina Qualified Code(s): I25.10 - Atherosclerotic heart disease of [place] coronary artery without angina pectoris (5) Cardiomyopathy Current Visit: Yes Status: Acute Per Cardiology: Per records preserved EF in 2016. EF now noted to be 20-25%. On strict I's and O's, 1.5 L fluid restriction, daily weights. On beta leonila. Can consider addition of TIERNEY inhibitor or ARB if able to tolerate and based on allergies-- will hold for now since still titrating BB for aflutter with RVR. According to medical records patient net I&O +9636ml and weight appears up from 141kg to 151kg-- questionable accuracy. Will DC IVF and will give Lasix 40 mg IV 1 now. Kidney function improved. Continue to monitor closely. Anticipate will need continued diuresis. Qualifiers: Cardiomyopathy type: unspecified Qualified Code(s): I42.9 - Cardiomyopathy , unspecified (6) BRENT (acute kidney injury) Current Visit: Yes Status: Acute Per Cardiology: Stable status post catheterization. Discussion w patient/family: The assessment and plan as outlined above was discussed with the patient and/or family members who expressed understanding and agreement. All questions were answered. Thank you for involving us in the care of your patient. Please call with any questions. Per patient request, attempted to review/discuss with patient son. Subjective Principal diagnosis: Afib Interval history: Patient denies any chest pain, shortness of breath, bleeding or blood loss. Reports brief episode of palpitations yesterday evening. Denies any concerns from his right groin site. Objective Vital Signs, Last 4 Hours Resp Pulse Ox 07/08/17 10:36 19 96 Selected Entries 07/08/17 07:00 07/08/17 10:36 Pulse Rate 88 Blood Pressure 139/67 O2 Sat by Pulse Oximetry 96 Oxygen Delivery Method Room Air General: Conversant, No Apparent Distress HEENT: Atraumatic, Normocephaly Cardiac: No Murmur, Other (Irregularly irregular) Lungs: Other (Mild conversational dyspnea noted, diminished breath sounds throughout) Neuro: Alert and responsive, No focal deficits noted Abdomen: Soft, Non-Tender, Other (obese) Skin: Other (Right groin site is dry and intact, no hematoma, no bleeding, no ecchymosis, right PT and DP pulses 1+ palpable) Extremities: Normal Pulses, Other (+1 pitting edema to bilateral lower extremities) Results 07/08/17 00:39 07/08/17 00:39 Lab Results Laboratory Tests 07/05/17 07/08/17 07:44 00:39 Creatinine 1.24 Est GFR (Non-Af Amer) > 60 Troponin I 0.06 H* 07/05/17 07/08/17 01:25 00:39 AST 16 ALT 8 LDL Cholesterol, Calc 93 Impressions Echocardiogram Limited Views 07/07/17 08:52 Impressions: LVEF 20-25%. Moderately dilated left ventricle. Severe global left ventricular systolic dysfunction with regional variations. Small echodensity along the apical septal/apical inferior segments of the LV suggestive of thrombus. Ordering provider notified. Left Ventricular Wall Motion: Rest Echo Findings The apex, apical inferior, mid inferior, basal inferior, apical anterior, mid anterior, basal anterior, apical septal, mid inferior septal, basal inferior septal, apical lateral, mid anterior lateral, basal anterior lateral, mid anterior septal, mid inferior lateral, basal anterior septal and basal inferior lateral smith were hypokinetic. Findings: Study Quality * Technically adequate exam. ECG Findings * Tachycardia noted. Difficult to determine rhythm. Left Ventricle * LVEF 20-25%. * Moderately dilated left ventricle. * Severe global left ventricular systolic dysfunction with regional variations. * Small echodensity along the apical septal/apical inferior segments of the LV suggestive of thrombus. Right Ventricle * Right ventricular size not well visualized. Hypokinesis noted. Aorta * Not well visualized. Pericardium * There is a trivial inerolateral pericardial effusion present. Pulmonary Perfusion Imaging 07/07/17 12:00 IMPRESSION: Very low probability for pulmonary embolism. D/ / Ryan Cisneros MD / Ryan Cisneros MD Interpreting Provider: Ryan Cisneros MD Active Medications Artificial Tears (Akwa Tears) 1 drop BOTH EYES BID PRN PRN Reason: Dry Eye(s) Aspirin (Aspirin Ec) 81 mg PO DAILY CRISTINA Stop: 01/04/18 09:01 Last Admin: 07/08/17 09:20 Dose: 81 mg Azithromycin (Zithromax) 500 mg PO Q24H CRISTINA Stop: 01/06/18 20:01 Last Admin: 07/07/17 23:15 Dose: 500 mg Bisacodyl (Dulcolax) 10 mg RC DAILY CRISTINA Stop: 01/05/18 16:16 Last Admin: 07/08/17 09:22 Dose: Not Given Dextrose/Water (Dextrose 50% (Syg)) 25 ml IVP AD PRN PRN Reason: Hypoglycemia Stop: 01/03/18 17:38 Glucagon (Glucagen) 1 mg IM ONCE PRN PRN Reason: Hypoglycemia Stop: 01/03/18 17:38 Glucose (Gluctose) 15 gm PO ONCE PRN PRN Reason: Hypoglycemia Stop: 01/03/18 17:38 Glucose (Gluctose) 30 gm PO ONCE PRN PRN Reason: Hypoglycemia Stop: 01/03/18 17:38 Heparin Sodium (Porcine) (Heparin) 9,000 unit IVP Q6HR PRN PRN Reason: SEE COMMENTS Stop: 01/04/18 11:26 Last Admin: 07/07/17 18:44 Dose: 9,000 unit Heparin Sodium (Porcine) (Heparin) 4,500 unit IVP Q6H PRN PRN Reason: SEE COMMENTS Stop: 01/04/18 11:26 Diltiazem HCl 125 mg/ Sodium (Chloride) 125 mls @ 2.5 mls/hr IVC .Q24H CRISTINA; 2.5 MG/HR PRN Reason: Protocol Stop: 01/03/18 15:31 Last Titration: 07/06/17 15:05 Dose: 0 mg/hr, 0 mls/hr Dextrose (Dextrose 5%) 1,000 mls @ 100 mls/hr IVC .Q10H PRN PRN Reason: HYPOGLYCEMIA Stop: 01/03/18 17:38 Ceftriaxone Sodium 2,000 mg/ (Sterile Water) 20 mls @ 600 mls/hr IVP Q24H CRISTINA Stop: 01/03/18 20:01 Last Admin: 07/07/17 23:11 Dose: 600 mls/hr Heparin Sodium/Dextrose (Heparin 25,000 Unit/500 Ml D5w) 25,000 unit in 500 mls @ 42.812 mls/hr IVC .[id number] CRISTINA; 14 UNIT/KG/HR PRN Reason: Protocol Stop: 01/04/18 11:31 Last Admin: 07/08/17 10:06 Dose: 10.74 unit/kg/hr, 32.843 mls/hr Sodium Chloride (0.9 % Sodium Chloride) 1,000 mls @ 100 mls/hr IVC .Q10H CRISTINA Stop: 01/06/18 17:01 Last Admin: 07/08/17 09:21 Dose: Not Given Insulin Human Lispro (Humalog) 0 units SQ TIDAC CRISTINA PRN Reason: Protocol Stop: 01/04/18 07:31 Last Admin: 07/08/17 11:48 Dose: Not Given Insulin Human Lispro (Humalog) 0 units SQ HS CRISTINA PRN Reason: Protocol Stop: 01/03/18 21:01 Last Admin: 07/07/17 23:30 Dose: Not Given Insulin Human Regular (Concentrated (Humulin R U-500) 0 unit SQ 1200 CRISTINA PRN Reason: Protocol Stop: 01/04/18 12:01 Last Admin: 07/08/17 12:34 Dose: Not Given Insulin Human Regular (Concentrated (Humulin R U-500) 0 unit SQ 0800 CRISTINA PRN Reason: Protocol Stop: 01/04/18 08:01 Last Admin: 07/08/17 09:22 Dose: Not Given Levalbuterol HCl (Xopenex) 1.25 mg IH [id number] CRISTINA Stop: 01/03/18 22:01 Last Admin: 07/08/17 10:35 Dose: 1.25 mg Metoprolol Succinate (Toprol Xl) 50 mg PO BID [facility] Stop: 01/06/18 09:01 Last Admin: 07/08/17 09:19 Dose: 50 mg Metoprolol Tartrate (Lopressor) 5 mg IVP Q6HR PRN PRN Reason: HR>110 Stop: 01/03/18 20:54 Last Admin: 07/08/17 00:54 Dose: 5 mg Naloxone HCl (Narcan) 0.4 mg IVP Q2MIN PRN PRN Reason: SEE COMMENTS Stop: 01/03/18 17:27 Naproxen (Naprosyn) 500 mg PO BID CRISTINA PRN Reason: Protocol Stop: 01/03/18 21:01 Last Admin: 07/08/17 09:19 Dose: 500 mg Oxycodone HCl (Roxicodone) 30 mg PO BID [facility] Stop: 01/03/18 21:16 Last Admin: 07/08/17 09:19 Dose: 30 mg Pharmacy Profile Note (Patient Taking Own Medication) 1 each OP BID PRN PRN Reason: Itching Pharmacy Profile Note (Patient Taking Own Medication) 1 each PO QAM CRISTINA Stop: 01/04/18 09:01 Last Admin: 07/08/17 10:26 Dose: 1 each Polyethylene Glycol (Miralax) 17 gm PO HS PRN PRN Reason: Constipation Stop: 01/03/18 17:19 Promethazine HCl (Phenergan) 12.5 mg IV Q6HR PRN PRN Reason: Nausea And Vomiting Stop: 01/03/18 21:16 Last Admin: 07/07/17 23:38 Dose: 12.5 mg Senna/Docusate Sodium (Senna Plus) 1 each PO BID CRISTINA PRN Reason: Protocol Stop: 01/03/18 21:01 Last Admin: 07/08/17 09:20 Dose: 1 each - Imaging and Cardiology Echo: report reviewed Cardiac cath: report reviewed - EKG Interpretation EKG results cardiology: other (Telemetry reviewed with average heart rate 112, currently A. fib in the 100s, one 7 beat run NSVT) Consult Discharge Plan - Plan [facility]errals: [facility]Primary Care Provider[facility] -
[2017-07-08] MEDS ORDERED: Metoprolol XL (24 HR) Succ 25 MG TAB.ER.24H PO ONE (13:00)
[2017-07-08 13:08] LABS: Activated Partial Thrombo Time 69.9 Seconds (26.0-36.0)
[2017-07-08 13:38] LABS: INR 1.3; Prothrombin Time 14.3 Seconds (9.4-12.1)
[2017-07-08] MEDS ORDERED: Furosemide 40 MG/4 ML VIAL IVP ONE (13:38)
--- NOTE | 2017-07-08 16:57 | Internal Med Progress Note ---
Date of Encounter: 07/08/17 Time of Encounter: 17:07 - Assessment and plan (1) Atrial fibrillation with RVR Current Visit: Yes Status: Acute Assessment and plan: new onset atrial flutter/fibrillation with RVR (HRs in 130s). Received one-time dose therapeutic Lovenox on admission. TSH normal. TTE with EF 20%, moderately dilated left atrium and hypokinestic wall motion. Initially managed with Cardizem gtt however this was weaned with newly found systolic dysfunction. BB uptitrated per cardiology with improvement in heart rate. Unable to cardiovert with left ventricle rhombus, continue his rate control strategy. Avoid CCB with systolic dysfunction. Continue Coumadin with heparin gtt. Cardiology following. (2) CHF (congestive heart failure) Current Visit: Yes Status: Acute Assessment and plan: new diagnosis. TTE with EF 20%, severe systolic dysfunction, moderately dilated left atrium, unable to rule out LV apical thrombus (EF previously 60% in 2016). With mild lower extremity edema on exam otherwise does not appear overtly overloaded. IV fluids stopped. Has allergy to TIERNEY and coreg. Metoprolol added per cardiology. Received one-time dose IV Lasix per cardiology on 07/08. Strict I and O's, fluid restriction, low NA diet, daily weight. Defer further diuresis to cardiology. Qualifiers: Heart failure type: systolic Heart failure chronicity: acute Qualified Code(s): I50.21 - Acute systolic (congestive) heart failure (3) CAD (coronary artery disease) Current Visit: Yes Status: Chronic Assessment and plan: 07/07/2017 LHC showed mid LAD 40%, distal circumflex 40%, OM1 40% lesions. Previous stents to proximal LAD patent. Patient reports allergy to prasugel, Plavix. Cont asa, bb, statin. Cardiology following. Qualifiers: Coronary Disease-Associated Artery/Lesion type: [place] artery [place] vs. transplanted heart: [place] heart Associated angina: angina presence unspecified Qualified Code(s): I25.10 - Atherosclerotic heart disease of [place] coronary artery without angina pectoris (4) Left ventricular apical thrombus Current Visit: Yes Status: Acute Assessment and plan: TTE with Definity showed small echodensity of the apical/septal and apical/ inferior LV suggestive of thrombus. Coumadin initiated, continue bridging with heparin. Cardiology following. (5) Constipation due to opioid therapy Current Visit: Yes Status: Acute Assessment and plan: Takes oxycodone at home for chronic back pain. Presented with 5 days of constipation. KUB mild to moderate stool volume. Now having BMs. Continue aggressive bowel regimen. (6) Pneumonia Current Visit: Yes Status: Acute Assessment and plan: CXR at [place] showed right basilar airspace disease with a possible small right pleural effusion. Afebrile, no elevated WBC. Urinary antigens, resp PCR negative. Continue IV azithromycin, ceftriaxone. Qualifiers: Pneumonia type: due to unspecified organism Laterality: right Lung location: lower lobe of lung Qualified Code(s): J18.1 - Lobar pneumonia, unspecified organism (7) Diabetes Current Visit: Yes Status: Chronic Assessment and plan: per hx. Uncontrolled, Hgb A1c 10.4%. Suspect secondary to dietary noncompliance. Cont home U-500 insulin. 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 Possibly secondary to acute onset A. fib. Renal function improving with IV fluids however need to stop IV fluids with new onset CHF. Avoid nephrotoxic agents as possible. Monitor repeat renal function. Renal function improving as of 07/07 (9) Elevated troponin Current Visit: Yes Status: Acute Assessment and plan: troponin peaked at 0.06. Denied CP; possibly secondary to A. fib, acute kidney injury however with new CHF as noted above; need to rule out ischemic etiology. [facility] planned 07/08/17. Cardiology following. (10) DVT prophylaxis Current Visit: Yes Status: Acute Assessment and plan: heparin gtt - Subjective Interval history: Seen and examined at bedside; says he feels better. No chest pain or shortness of breath. He is having frequent bowel movements. No abdominal pain. No diarrhea. - Constitutional Vitals: Temp Pulse Resp BP Pulse Ox 99.1 F 86 18 129/66 97 07/07/17 19:40 07/08/17 16:24 07/08/17 16:27 07/08/17 16:24 07/08/17 16:27 General appearance: Present: A&O X 3, morbidly obese, no acute distress, answers questions appropriately - Head Head exam: Present: atraumatic, normocephalic - Eye Eye exam: Present: PERRL, conjuntiva pink, sclera anicteric Pupils: Present: PERRL - Neck Neck exam general surgery: Present: supple, trachea midline. Absent: lymphadenopathy - Respiratory Respiratory exam: Present: CTAB. Absent: accessory muscle use, rales, rhonchi, wheezes - Cardiovascular Cardiovascular exam: Present: irregular rhythm, +S1, +S2. Absent: diastolic murmur, gallop, RRR, rubs, systolic murmur - GI/Abdominal GI/Abdominal exam: Present: normal bowel sounds, soft, no peritoneal signs. Absent: distended, tenderness - Extremities Exam Extremities exam: Present: pedal edema, warm, radial pulses palpable and symmetrical. Absent: calf tenderness, cyanotic - Neurological Exam Neurological exam: Present: CN II-XII intact, oriented X3, no focal deficits. Absent: pronater drift, facial droop, speech deficit - Skin Skin exam: Present: dry, intact Internal Medicine: Result - Labs CBC & Chem 7: 07/08/17 00:39 07/08/17 00:39 Labs: Short CBC 07/08/17 Range/Units 00:39 WBC 7.5 (4.3-11.1) K/mcL Hgb 14.0 (12.9-16.9) g/dL Hct 43.2 (37.5-50.1) % Plt Count 265 (140-400) K/mcL Neutrophils # 5.2 (1.6-8.9) K/mcL BMP 07/08/17 00:39 Sodium 134 L Potassium 4.5 Chloride 102 Carbon Dioxide 23 BUN 28 H Creatinine 1.24 Glucose 347 H Calcium 9.4 Liver Function 07/08/17 Range/Units 00:39 Total Bilirubin 0.4 (0.3-1.0) mg/dL AST 16 (13-39) Units/L ALT 8 (7-52) Units/L Alkaline Phosphatase 99 (34-104) Units/L Albumin 3.6 (3.5-5.7) g/dL - ABG Interpretation ABG results: PT/INR, D-dimer PT 14.3 Seconds (9.4-12.1) H 07/08/17 12:41 - Impressions Impressions Echocardiogram Limited Views 07/07/17 08:52 Impressions: LVEF 20-25%. Moderately dilated left ventricle. Severe global left ventricular systolic dysfunction with regional variations. Small echodensity along the apical septal/apical inferior segments of the LV suggestive of thrombus. Ordering provider notified. Left Ventricular Wall Motion: Rest Echo Findings The apex, apical inferior, mid inferior, basal inferior, apical anterior, mid anterior, basal anterior, apical septal, mid inferior septal, basal inferior septal, apical lateral, mid anterior lateral, basal anterior lateral, mid anterior septal, mid inferior lateral, basal anterior septal and basal inferior lateral smith were hypokinetic. Findings: Study Quality * Technically adequate exam. ECG Findings * Tachycardia noted. Difficult to determine rhythm. Left Ventricle * LVEF 20-25%. * Moderately dilated left ventricle. * Severe global left ventricular systolic dysfunction with regional variations. * Small echodensity along the apical septal/apical inferior segments of the LV suggestive of thrombus. Right Ventricle * Right ventricular size not well visualized. Hypokinesis noted. Aorta * Not well visualized. Pericardium * There is a trivial inerolateral pericardial effusion present. Consult Discharge Plan - Plan [facility]errals: [facility] [Primary Care Provider] -
[2017-07-08] MEDS: Simethicone 80 MG TAB.CHEW PO PRN ×2 (17:11→22:21)
[2017-07-08] MEDS ORDERED: *HR* Warfarin 4 MG TABLET PO ONE (18:00)
[2017-07-08] MEDS ORDERED: Warfarin perPT PO PRN (18:00)
[2017-07-08] MEDS: cefTRIAXone 2,000 MG in Water for inj. (sterile) 20 ML 20 ML IVP SCH (21:05)
[2017-07-08] MEDS: Azithromycin 250 MG TABLET PO SCH (21:08)
--- NOTE | 2017-07-08 22:52 | Electrocardiograph Report ---
[place] [id number] Test Date: 2017-07-04 Pat Name: Jef Madera Department: 103 Room: 2NE28 Gender: M Traffic Recorder: JULIO : 1960 Requested By: Marcin Cooper Order Number: [id number] Reading MD: Al De La Cruz DO Measurements Intervals [place] Rate: 139 P: ID: 0 QRS: -25 QRSD: 78 T: 194 QT: 289 QTc: 370 Interpretive Statements ATRIAL FLUTTER/TACHYCARDIA WITH RAPID VENTRICULAR RESPONSE ANTEROSEPTAL MYOCARDIAL INFARCTION, OF INDETERMINATE AGE Electronically Signed On 07-08-2017 22:50:22 EDT by Al De La Cruz DO
[2017-07-09] MEDS: Heparin 25,000 UNIT/500 ML D5W 25,000 UNIT/500 ML BAG IVC SCH ×3 (00:27→14:27)
[2017-07-09] MEDS: Levalbuterol Neb 1.25 MG/3 ML IH SCH ×2 (04:09→10:52)
[2017-07-09] MEDS: *HR* Promethazine 25 MG/ML VIAL IV PRN ×2 (04:17→21:06)
[2017-07-09] MEDS: Acetaminophen 325 MG TABLET PO PRN ×2 (05:12→12:30)
[2017-07-09] MEDS: Simethicone 80 MG TAB.CHEW PO PRN ×2 (06:10→17:19)
[2017-07-09 07:55] LABS: Alanine Aminotransferase 11 Units/L (7-52); Albumin 3.8 g/dL (3.5-5.7); Alkaline Phosphatase 98 Units/L (34-104); Aspartate Amino Transferase 26 Units/L (13-39); BUN/Creatinine Ratio 23 (6-26); Bilirubin,Total 0.5 mg/dL (0.3-1.0); Blood Urea Nitrogen 32 mg/dL (6-20); Carbon Dioxide 24 mEq/L (23-29); Chloride 102 mEq/L (98-107); Globulin 3.9 g/dL (2.4-3.5); Glucose 138 mg/dL (70-105); Osmolality,Calculated 289 (280-300); Potassium 4.4 mEq/L (3.5-5.1); Sodium 135 mEq/L (136-145); Total Protein 7.7 g/dL (6.4-8.9); eGFR For African Americans > 60 (> 60); eGFR For Non-African Americans 53 (> 60)
[2017-07-09 08:06] LABS: INR 1.3; Prothrombin Time 14.2 Seconds (9.4-12.1)
[2017-07-09 08:28] LABS: Basophils # 0.1 K/mcL (0.0-0.2); Basophils % 1.2 %; Eosinophils # 0.5 K/mcL (0.0-0.6); Eosinophils % 5.5 %; Hematocrit 46.6 % (37.5-50.1); Hemoglobin 15.3 g/dL (12.9-16.9); Immature Granulocytes % 0.2 % (0-4); Lymphocytes # 2.6 K/mcL (0.6-4.6); Lymphocytes % 29.2 %; Mean Corpuscular HGB Conc 32.8 g/dL (31.6-35.5); Mean Corpuscular Hemoglobin 29.2 pg (28.0-33.3); Mean Corpuscular Volume 88.9 fL (83.0-100.0); Mean Platelet Volume 10.7 fL (9.4-12.4); Monocytes # 0.8 K/mcL (0.0-1.3); Monocytes % 8.3 %; Platelet Count 270 K/mcL (140-400); Red Blood Count 5.24 M/mcL (4.19-5.50); Red Cell Distribution Width 14.2 % (11.5-14.5); Segmented Neutrophils % 55.6 %
--- NOTE | 2017-07-09 08:48 | Internal Med Progress Note ---
<Jef Jones Eric - Last Filed: 07/09/17 12:50> Date of Encounter: 07/09/17 - Constitutional Vitals: Temp Pulse Resp BP Pulse Ox 97.7 F 104 18 127/101 96 07/09/17 03:52 07/09/17 11:11 07/09/17 10:52 07/09/17 11:11 07/09/17 10:52 Internal Medicine: Result - Labs CBC & Chem 7: 07/09/17 07:07 07/09/17 07:07 Labs: Short CBC 07/09/17 Range/Units 07:07 WBC 9.0 (4.3-11.1) K/mcL Hgb 15.3 (12.9-16.9) g/dL Hct 46.6 (37.5-50.1) % Plt Count 270 (140-400) K/mcL Neutrophils # 5.0 (1.6-8.9) K/mcL BMP 07/09/17 07:07 Sodium 135 L Potassium 4.4 Chloride 102 Carbon Dioxide 24 BUN 32 H Creatinine 1.38 H Glucose 138 H Calcium 10.0 Liver Function 07/09/17 Range/Units 07:07 Total Bilirubin 0.5 (0.3-1.0) mg/dL AST 26 (13-39) Units/L ALT 11 (7-52) Units/L Alkaline Phosphatase 98 (34-104) Units/L Albumin 3.8 (3.5-5.7) g/dL - ABG Interpretation ABG results: PT/INR, D-dimer PT 14.2 Seconds (9.4-12.1) H 07/09/17 07:07 Consult Discharge Plan - Plan Referrals: [facility] [Primary Care Provider] - - Attending Attestation I performed an independent interview and examine this patient. I agree with the findings, assessment, and plan of Dr. Larry, internal medicine r d intern. Allergy input noted and appreciated. Patient continues on anticoagulation for known LV thrombus. His heart rate appears to be under control. Patient is noted to have a nonischemic cardiomyopathy with an EF of 20%. He is still quite edematous and we did change oral Lasix to IV and will monitor renal function closely. Do not see any signs of pneumonia, and therefore we will stop empiric antibiotics at this time and monitor. Patient also has opiate- induced constipation and we will need to use a more aggressive bowel regimen, hopefully eventually limit his opiate use. All else as outlined above.. <Kenny Larry - Last Filed: 07/09/17 15:39> Date of Encounter: 07/09/17 Time of Encounter: 08:46 - Assessment and plan (1) Atrial fibrillation with RVR Current Visit: Yes Status: Acute Assessment and plan: -New onset atrial flutter/fibrillation with RVR (HRs in 130s) -Received one-time dose therapeutic Lovenox on admission -TSH normal -TTE with EF 20%, moderately dilated left atrium and hypokinestic wall motion -Initially managed with Cardizem gtt however this was weaned with newly found systolic dysfunction -BB uptitrated per cardiology with improvement in heart rate -Unable to cardiovert with left ventricle rhombus, continue his rate control strategy -Avoid CCB with systolic dysfunction -Continue Coumadin with heparin gtt -Cardiology following (2) CHF (congestive heart failure) Current Visit: Yes Status: Acute Assessment and plan: Echocardiogram was performed on 07/07/17; demonstrated the following: -LVEF 20-25%. -Moderately dilated left ventricle. -Severe global left ventricular systolic dysfunction with regional variations. -Small echodensity along the apical septal/apical inferior segments of the LV suggestive of thrombus Has allergy to TIERNEY and coreg -Metoprolol added per cardiology -Received one-time dose IV Lasix per cardiology on 07/08 -Patient's Lasix has been increased to 40 mg IV twice a day -Strict I and O's, fluid restriction, low NA diet, daily weight Qualifiers: Heart failure type: systolic Heart failure chronicity: acute Qualified Code(s): I50.21 - Acute systolic (congestive) heart failure (3) CAD (coronary artery disease) Current Visit: Yes Status: Chronic Assessment and plan: -07/07/2017 LHC showed mid LAD 40%, distal circumflex 40%, OM1 40% lesions -Previous stents to proximal LAD patent -Patient reports allergy to prasugel, Plavix -ASA 81 mg by mouth daily -Lipitor 80 mg by mouth at bedtime -Metoprolol XL 75 mg by mouth twice a day Qualifiers: Coronary Disease-Associated Artery/Lesion type: [place] artery [place] vs. transplanted heart: [place] heart Associated angina: angina presence unspecified Qualified Code(s): I25.10 - Atherosclerotic heart disease of [place] coronary artery without angina pectoris (4) Left ventricular apical thrombus Current Visit: Yes Status: Resolved Assessment and plan: -TTE with Definity showed small echodensity of the apical/septal and apical/ inferior LV suggestive of thrombus -Coumadin initiated, continue bridging with heparin (5) Constipation due to opioid therapy Current Visit: Yes Status: Acute Assessment and plan: -Takes oxycodone at home for chronic back pain -Presented with 5 days of constipation -KUB mild to moderate stool volume -Now having BMs -Continue aggressive bowel regimen (6) Diabetes Current Visit: Yes Status: Chronic Assessment and plan: -per hx. 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 fib -Avoid nephrotoxic agents as possible -Monitor repeat renal function (8) DVT prophylaxis Current Visit: Yes Status: Acute Assessment and plan: heparin gtt - Subjective Interval history: 56-year-old male. Presented with heart palpitations and arrhythmia. Patient went to the [place] for constipation, was found to have atrial flutter and pneumonia on chest x-ray. Was found to be in A. fib with RVR; heart rate greater than 100 bpm. Patient had a previous myocardial infarction in 2005 with placement of 5 stents. Ported having shortness of breath. Denied having any syncope, headache, or visual disturbances. Cardiology was consulted; recommended Cardizem drip with IV heparin drip for stroke risk reduction. Echocardiogram was performed on 07/07/17; demonstrated the following: LVEF 20-25%. Moderately dilated left ventricle. Severe global left ventricular systolic dysfunction with regional variations. Small echodensity along the apical septal/apical inferior segments of the LV suggestive of thrombus. Patient was seen and examined at bedside this morning. Appears very fluid overloaded; we will increase Lasix to 40 mg IV twice a day. - Constitutional Vitals: Temp Pulse Resp BP Pulse Ox 97.7 F 86 18 139/75 95 07/09/17 03:52 07/09/17 07:05 07/09/17 04:09 07/09/17 07:05 07/09/17 04:09 General appearance: Present: A&O X 3, morbidly obese, no acute distress, answers questions appropriately - Head Head exam: Present: atraumatic, normocephalic - Eye Eye exam: Present: PERRL, conjuntiva pink, sclera anicteric Pupils: Present: PERRL - Neck Neck exam general surgery: Present: supple, trachea midline. Absent: lymphadenopathy - Respiratory Respiratory exam: Present: rales. Absent: accessory muscle use, rhonchi, wheezes - Cardiovascular Cardiovascular exam: Present: RRR, +S1, +S2. Absent: diastolic murmur, gallop, rubs, systolic murmur - GI/Abdominal GI/Abdominal exam: Present: normal bowel sounds, soft, no peritoneal signs. Absent: distended, tenderness - Extremities Exam Extremities exam: Present: pedal edema, warm. Absent: calf tenderness, cyanotic Additional comments: significant pedal edema bilaterally. - Neurological Exam Neurological exam: Present: CN II-XII intact, oriented X3, no focal deficits. Absent: pronater drift, facial droop, speech deficit - Skin Skin exam: Present: dry, intact Internal Medicine: Result - Labs CBC & Chem 7: 07/09/17 07:07 07/09/17 07:07 Labs: Short CBC 07/09/17 Range/Units 07:07 WBC 9.0 (4.3-11.1) K/mcL Hgb 15.3 (12.9-16.9) g/dL Hct 46.6 (37.5-50.1) % Plt Count 270 (140-400) K/mcL Neutrophils # 5.0 (1.6-8.9) K/mcL BMP 07/09/17 07:07 Sodium 135 L Potassium 4.4 Chloride 102 Carbon Dioxide 24 BUN 32 H Creatinine 1.38 H Glucose 138 H Calcium 10.0 Liver Function 07/09/17 Range/Units 07:07 Total Bilirubin 0.5 (0.3-1.0) mg/dL AST 26 (13-39) Units/L ALT 11 (7-52) Units/L Alkaline Phosphatase 98 (34-104) Units/L Albumin 3.8 (3.5-5.7) g/dL - ABG Interpretation ABG results: PT/INR, D-dimer PT 14.2 Seconds (9.4-12.1) H 07/09/17 07:07 - Impressions Impressions Echocardiogram Limited Views 07/07/17 08:52 Impressions: LVEF 20-25%. Moderately dilated left ventricle. Severe global left ventricular systolic dysfunction with regional variations. Small echodensity along the apical septal/apical inferior segments of the LV suggestive of thrombus. Ordering provider notified. Left Ventricular Wall Motion: Rest Echo Findings The apex, apical inferior, mid inferior, basal inferior, apical anterior, mid anterior, basal anterior, apical septal, mid inferior septal, basal inferior septal, apical lateral, mid anterior lateral, basal anterior lateral, mid anterior septal, mid inferior lateral, basal anterior septal and basal inferior lateral smith were hypokinetic. Findings: Study Quality * Technically adequate exam. ECG Findings * Tachycardia noted. Difficult to determine rhythm. Left Ventricle * LVEF 20-25%. * Moderately dilated left ventricle. * Severe global left ventricular systolic dysfunction with regional variations. * Small echodensity along the apical septal/apical inferior segments of the LV suggestive of thrombus. Right Ventricle * Right ventricular size not well visualized. Hypokinesis noted. Aorta * Not well visualized. Pericardium * There is a trivial inerolateral pericardial effusion present.
[2017-07-09] MEDS: *HR* Insulin Regular U-500 500 UNIT/ML SQ SCH ×3 (09:10→17:24)
[2017-07-09] MEDS: Insulin LISPRO 300 UNITS/3 ML VIAL SQ SCH ×4 (09:10→20:44)
[2017-07-09] MEDS: DEXTROAMPHETAMINE SULFATE 10 MG PO SCH (09:25)
[2017-07-09] MEDS: Metoprolol XL (24 HR) Succ 25 MG TAB.ER.24H PO SCH (09:25)
[2017-07-09] MEDS: *HR* OxyCODONE Immed Rel 15 MG TABLET PO SCH ×2 (09:25→20:43)
[2017-07-09] MEDS: Sennosides/Docusate Sodium TABLET PO SCH ×2 (09:25→20:44)
[2017-07-09] MEDS: Aspirin Enteric Coated 81 MG Tablet PO SCH (09:25)
[2017-07-09] MEDS: Bisacodyl 10 MG RECTAL SUPPOSITORY RC SCH (09:26)
--- NOTE | 2017-07-09 11:00 | Cardiology Progress Note ---
Date of Encounter: 07/09/17 Time of Encounter: 09:00 Assessment and Plan (1) Atrial flutter with rapid ventricular response Current Visit: Yes Status: Acute Per Cardiology: -Apparent new onset A. fib. -Average HR previous 12 hours noted to be 100, a.flutter. -On toprol 75mg BID. SBP 120-130s. - Found to have apical thrombus-- DCCV contraindicated. Continue with rate control strategy. -Again, recommend avoid CCB since EF down to 20-25%. -Can consider amio or digoxin (discussed with Dr. De Dios). -Regarding long-term anticoagulation, currently on IV heparin drip, will need bridging since now found to have thrombus. -Recs to initiate Coumadin with target INR 2.0-3.0. -Will increase toprol to 100mg BID. Will give one time dose of 25mg now to total 100mg this am. -Will continue to monitor. (2) Elevated troponin Current Visit: Yes Status: Acute Per Cardiology: -Troponins flat and adynamic with peak of 0.06 in setting of A. fib with RVR. -However, EF noted to be down to 20%. -Status post catheterization-- nonobstructive CAD. -Suspect demand ischemia. (3) Cardiomyopathy Current Visit: Yes Status: Acute Per Cardiology: -Per records preserved EF in 2016. -EF now noted to be 20-25%. -On strict I's and O's, 1.5 L fluid restriction, daily weights. -On beta leonila. -Discussed with pateint regarding recommendations for rober/arb for cardiomyopathy. Patient refusing, states he is "allergic to pretty much all of them." -According to medical records patient net I&O +[phone]. Lung sounds clear to auscultation, mild pedal edema noted. -Kidney function worsened today. -Will start oral lasix. Continue to monitor renal function closely. -Will continue to monitor. Qualifiers: Cardiomyopathy type: unspecified Qualified Code(s): I42.9 - Cardiomyopathy , unspecified (4) CAD (coronary artery disease) Current Visit: Yes Status: Chronic Per Cardiology: -Catheterization showed mid LAD 40%, distal circumflex 40%, OM1 40% lesions. Previous stents to proximal LAD patent. -On asa, bb, statin. LFTs stable. Qualifiers: Coronary Disease-Associated Artery/Lesion type: [place] artery [place] vs. transplanted heart: [place] heart Associated angina: without angina Qualified Code(s): I25.10 - Atherosclerotic heart disease of [place] coronary artery without angina pectoris (5) Left ventricular apical thrombus Current Visit: Yes Status: Resolved Per Cardiology: -Repeat limited echo with Definity shows small echodensity of the apical/septal and apical/inferior LV suggestive of thrombus. - Currently on IV heparin drip. - Recommend continue with bridging. We will initiate Coumadin. -Of note, [facility], [facility] be able to follow with [place] [facility]. (6) BRENT (acute kidney injury) Current Visit: Yes Status: Acute Per Cardiology: -Renal function slightly worse today, from yesterday. -TOday 1.38. -Continue to monitor. Discussion w patient/family: The assessment and plan as outlined above was discussed with the patient who expressed understanding and agreement. All questions were answered. Thank you for involving us in the care of your patient. Please call with any questions. Discussed and reviewed with . Subjective Principal diagnosis: Afib, cardiomyopathy Interval history: Patient denies chest pain. Denies issues walking or using right leg. Objective Vital Signs, Last 4 Hours Pulse BP 07/09/17 07:05 86 139/75 Vital Signs Temperature 97.7 F 07/09/17 03:52 Pulse Rate 86 07/09/17 07:05 Respiratory Rate 18 07/09/17 04:09 Blood Pressure 139/75 07/09/17 07:05 O2 Sat by Pulse Oximetry 95 07/09/17 04:09 Oxygen Delivery Oxygen Delivery Room Air General: Conversant, No Apparent Distress HEENT: Atraumatic, Normocephaly, Mucus Membranes Moist Neck: No JVD, Normal carotid pulses Cardiac: Normal S1 and S2, No Murmur, Other (Irregularly irregular) Lungs: Normal Breath Sounds, No Wheeze, Rales, Rhonchi Neuro: Alert and responsive, No focal deficits noted Abdomen: Soft, Non-Tender Skin: No rashes noted on visualized skin, Other (Right groin access site without hematoma or ecchymosis. ) Musculoskeletal: No Chest Wall Tenderness Extremities: No Clubbing, No Cyanosis, Normal Pulses, Other (Mild bilateral pedal edema noted. ) Results 07/09/17 07:07 07/09/17 07:07 Lab Results Active Medications Acetaminophen (Tylenol) 650 mg PO Q6H PRN PRN Reason: Mild-moderate pain Stop: 01/08/18 04:41 Last Admin: 07/09/17 05:12 Dose: 650 mg Artificial Tears (Akwa Tears) 1 drop BOTH EYES BID PRN PRN Reason: Dry Eye(s) Aspirin (Aspirin Ec) 81 mg PO DAILY [facility] Stop: 01/04/18 09:01 Last Admin: 07/09/17 09:25 Dose: 81 mg Atorvastatin Calcium (Lipitor) 80 mg PO HS [facility] Stop: 01/07/18 21:01 Last Admin: 07/08/17 21:08 Dose: 80 mg Azithromycin (Zithromax) 500 mg PO Q24H [facility] Stop: 01/06/18 20:01 Last Admin: 07/08/17 21:08 Dose: 500 mg Bisacodyl (Dulcolax) 10 mg RC DAILY [facility] Stop: 01/05/18 16:16 Last Admin: 07/09/17 09:26 Dose: Not Given Dextrose/Water (Dextrose 50% (Syg)) 25 ml IVP AD PRN PRN Reason: Hypoglycemia Stop: 01/03/18 17:38 Glucagon (Glucagen) 1 mg IM ONCE PRN PRN Reason: Hypoglycemia Stop: 01/03/18 17:38 Glucose (Gluctose) 15 gm PO ONCE PRN PRN Reason: Hypoglycemia Stop: 01/03/18 17:38 Glucose (Gluctose) 30 gm PO ONCE PRN PRN Reason: Hypoglycemia Stop: 01/03/18 17:38 Heparin Sodium (Porcine) (Heparin) 9,000 unit IVP Q6HR PRN PRN Reason: SEE COMMENTS Stop: 01/04/18 11:26 Last Admin: 07/07/17 18:44 Dose: 9,000 unit Heparin Sodium (Porcine) (Heparin) 4,500 unit IVP Q6H PRN PRN Reason: SEE COMMENTS Stop: 01/04/18 11:26 Dextrose (Dextrose 5%) 1,000 mls @ 100 mls/hr IVC .Q10H PRN PRN Reason: HYPOGLYCEMIA Stop: 01/03/18 17:38 Ceftriaxone Sodium 2,000 mg/ (Sterile Water) 20 mls @ 600 mls/hr IVP Q24H [facility] Stop: 01/03/18 20:01 Last Admin: 07/08/17 21:05 Dose: 600 mls/hr Heparin Sodium/Dextrose (Heparin 25,000 Unit/500 Ml D5w) 25,000 unit in 500 mls @ 42.812 mls/hr IVC .[id number] CRISTINA; 14 UNIT/KG/HR PRN Reason: Protocol Stop: 01/04/18 11:31 Last Admin: 07/09/17 09:11 Dose: Not Given Insulin Human Lispro (Humalog) 0 units SQ TIDAC [facility] PRN Reason: Protocol Stop: 01/04/18 07:31 Last Admin: 07/09/17 09:10 Dose: Not Given Insulin Human Lispro (Humalog) 0 units SQ HS [facility] PRN Reason: Protocol Stop: 01/03/18 21:01 Last Admin: 07/08/17 21:11 Dose: Not Given Insulin Human Regular (Concentrated (Humulin R U-500) 0 unit SQ 1200 [facility] PRN Reason: Protocol Stop: 01/04/18 12:01 Last Admin: 07/08/17 12:34 Dose: Not Given Insulin Human Regular (Concentrated (Humulin R U-500) 0 unit SQ 0800 [facility] PRN Reason: Protocol Stop: 01/04/18 08:01 Last Admin: 07/09/17 09:10 Dose: Not Given Levalbuterol HCl (Xopenex) 1.25 mg IH [id number] [facility] Stop: 01/03/18 22:01 Last Admin: 07/09/17 10:52 Dose: 1.25 mg Metoprolol Succinate (Toprol Xl) 100 mg PO BID [facility] Stop: 01/08/18 21:01 Metoprolol Tartrate (Lopressor) 5 mg IVP Q6HR PRN PRN Reason: HR>110 Stop: 01/03/18 20:54 Last Admin: 07/08/17 00:54 Dose: 5 mg Naloxone HCl (Narcan) 0.4 mg IVP Q2MIN PRN PRN Reason: SEE COMMENTS Stop: 01/03/18 17:27 Naproxen (Naprosyn) 500 mg PO BID [facility] PRN Reason: Protocol Stop: 01/03/18 21:01 Last Admin: 07/09/17 09:25 Dose: 500 mg Oxycodone HCl (Roxicodone) 30 mg PO BID [facility] Stop: 01/03/18 21:16 Last Admin: 07/09/17 09:25 Dose: 30 mg Pharmacy Profile Note (Patient Taking Own Medication) 1 each OP BID PRN PRN Reason: Itching Pharmacy Profile Note (Patient Taking Own Medication) 1 each PO QAM [facility] Stop: 01/04/18 09:01 Last Admin: 07/09/17 09:25 Dose: 1 each Polyethylene Glycol (Miralax) 17 gm PO HS PRN PRN Reason: Constipation Stop: 01/03/18 17:19 Promethazine HCl (Phenergan) 12.5 mg IV Q6HR PRN PRN Reason: Nausea And Vomiting Stop: 01/03/18 21:16 Last Admin: 07/09/17 04:17 Dose: 12.5 mg Senna/Docusate Sodium (Senna Plus) 1 each PO BID [facility] PRN Reason: Protocol Stop: 01/03/18 21:01 Last Admin: 07/09/17 09:25 Dose: 1 each Simethicone (Gas-X) 160 mg PO Q4H PRN PRN Reason: Dyspepsia Stop: 01/07/18 16:24 Last Admin: 07/09/17 06:10 Dose: 160 mg Warfarin Sodium (Coumadin Perpt) 1 each PO DAILY@1800 PRN PRN Reason: SEE COMMENTS Stop: 01/07/18 18:01 Laboratory Tests 07/09/17 07/09/17 07/09/17 07:07 07:07 07:07 Hgb 15.3 INR 1.3 Creatinine 1.38 H - Imaging and Cardiology Chest Xray: report reviewed Echo: report reviewed Cardiac cath: report reviewed - EKG Interpretation EKG results cardiology: other (Telemetry reviewed with average HR previous 12 hours noted to be 101, atrial flutter. PVCs, couplets noted. One 5 beat run of non-sustained VT noted.) Consult Discharge Plan - Plan [facility]errals: [facility] [Primary Care Provider] -
[2017-07-09] MEDS ORDERED: Metoprolol XL (24 HR) Succ 25 MG TAB.ER.24H PO ONE (11:12)
[2017-07-09] MEDS ORDERED: Furosemide 40 MG TABLET PO SCH (11:15)
[2017-07-09] MEDS ORDERED: *HR* Insulin Regular U-500 500 UNIT/ML SQ ONE ×2 (12:15→18:00)
[2017-07-09] MEDS: Furosemide 40 MG/4 ML VIAL IVP SCH ×2 (14:30→20:44)
[2017-07-09] MEDS ORDERED: *HR* Warfarin 5 MG TABLET PO ONE (18:00)
[2017-07-09] MEDS: Metoprolol XL (24 HR) Succ 50 MG TAB.ER.24H PO SCH (20:43)
[2017-07-09] MEDS: *HR* Dextrose 50 % in Water (Syg) 50 ML SYRINGE IVP PRN (23:40)
[2017-07-10] MEDS: Levalbuterol Neb 1.25 MG/3 ML IH PRN ×2 (04:03→18:46)
[2017-07-10] MEDS: Heparin 25,000 UNIT/500 ML D5W 25,000 UNIT/500 ML BAG IVC SCH ×2 (05:22→21:54)
[2017-07-10 06:26] LABS: INR 1.4; Prothrombin Time 15.5 Seconds (9.4-12.1)
--- NOTE | 2017-07-10 08:43 | Internal Med Progress Note ---
<Jef Jones Eric - Last Filed: 07/10/17 15:02> Date of Encounter: 07/10/17 - Constitutional Vitals: Temp Pulse Resp BP Pulse Ox 97.9 F 89 18 110/64 95 07/10/17 11:49 07/10/17 11:49 07/10/17 11:49 07/10/17 11:49 07/10/17 11:49 Internal Medicine: Result - Labs CBC & Chem 7: 07/09/17 07:07 07/10/17 09:25 Labs: BMP 07/10/17 09:25 Sodium 137 Potassium 4.3 Chloride 99 Carbon Dioxide 24 BUN 34 H Creatinine 1.51 H Glucose 110 H Calcium 10.2 - ABG Interpretation ABG results: PT/INR, D-dimer PT 15.5 Seconds (9.4-12.1) H 07/10/17 06:01 - Impressions Impressions Chest X-Ray 07/10/17 04:40 IMPRESSION: Possible developing right basilar atelectasis or pneumonia. D/ / Vitaly Aleman MD / Vitaly Aleman MD Interpreting Provider: Vitaly Aleman MD Consult Discharge Plan - Plan [facility]errals: [facility] [Primary Care Provider] - - Attending Attestation I performed an independent interview and examine this patient. I agree with the findings, assessment, and plan of Dr. Larry, internal medicine international freight forwarder. Cardiology input appreciated. Patient's rate remained under control with regards to his atrial fibrillation. He continues on Coumadin for anticoagulation for both his atrial fibrillation as well as his discovered apical thrombus. His CHF remains decompensated and he remains on IV Lasix. He is diuresing well. We will continue to diurese as renal function and blood pressure allows. Patient continues to improve although still has significant edema and is legs and scrotal region. All else as outlined above. Patient's case was discussed in detail with the team rounds. <Kenny Larry - Last Filed: 07/10/17 15:13> Date of Encounter: 07/10/17 Time of Encounter: 08:37 - Assessment and plan (1) Atrial fibrillation with RVR Current Visit: Yes Status: Acute Assessment and plan: -New onset atrial flutter/fibrillation with RVR (HRs in 130s) -TTE with EF 20%, moderately dilated left atrium and hypokinestic wall motion -Initially managed with Cardizem gtt however this was weaned with newly found systolic dysfunction -BB uptitrated per cardiology with improvement in heart rate -Currently on Toprol 75 mg twice a day. -Consider amiodarone or digoxin. -Avoid calcium channel blockers due to ejection fraction 20-25%. -DCCV contraindicated due to apical thrombus. -Continue Coumadin with heparin gtt -Coumadin with a target INR of 2-3 -Per cardiology, will increase Toprol to 100 mg twice a day. (2) CHF (congestive heart failure) Current Visit: Yes Status: Acute Assessment and plan: Echocardiogram was performed on 07/07/17; demonstrated the following: -LVEF 20-25%. -Moderately dilated left ventricle. -Severe global left ventricular systolic dysfunction with regional variations. -Small echodensity along the apical septal/apical inferior segments of the LV suggestive of thrombus Has allergy to TIERNEY and coreg -Metoprolol added per cardiology -Received one-time dose IV Lasix per cardiology on 07/08 -Patient's Lasix has been increased to 40 mg IV twice a day -Strict I and O's, fluid restriction, low NA diet, daily weight Qualifiers: Heart failure type: systolic Heart failure chronicity: acute Qualified Code(s): I50.21 - Acute systolic (congestive) heart failure (3) CAD (coronary artery disease) Current Visit: Yes Status: Chronic Assessment and plan: -07/07/2017 LHC showed mid LAD 40%, distal circumflex 40%, OM1 40% lesions -Previous stents to proximal LAD patent -Patient reports allergy to prasugel, Plavix -ASA 81 mg by mouth daily -Lipitor 80 mg by mouth at bedtime -Metoprolol XL 75 mg by mouth twice a day Qualifiers: Coronary Disease-Associated Artery/Lesion type: [place] artery [place] vs. transplanted heart: [place] heart Associated angina: angina presence unspecified Qualified Code(s): I25.10 - Atherosclerotic heart disease of [place] coronary artery without angina pectoris (4) Left ventricular apical thrombus Current Visit: Yes Status: Resolved Assessment and plan: -TTE with Definity showed small echodensity of the apical/septal and apical/ inferior LV suggestive of thrombus -Coumadin initiated, continue bridging with heparin (5) Constipation due to opioid therapy Current Visit: Yes Status: Acute Assessment and plan: -Takes oxycodone at home for chronic back pain -Presented with 5 days of constipation -KUB mild to moderate stool volume -Now having BMs -Continue aggressive bowel regimen (6) Diabetes Current Visit: Yes Status: Chronic Assessment and plan: -per hx. 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 fib -Avoid nephrotoxic agents as possible -Monitor repeat renal function (8) DVT prophylaxis Current Visit: Yes Status: Acute Assessment and plan: heparin gtt - Subjective Interval history: Patient was seen and examined at bedside this morning. Appears very fluid overloaded; we will increase Lasix to 40 mg IV twice a day. - Constitutional Vitals: Temp Pulse Resp BP Pulse Ox 97.9 F 87 18 129/81 96 07/10/17 07:47 07/10/17 07:47 07/10/17 07:47 07/10/17 07:47 07/10/17 07:47 General appearance: Present: A&O X 3, morbidly obese, no acute distress, answers questions appropriately - Head Head exam: Present: atraumatic, normocephalic - Eye Eye exam: Present: PERRL, conjuntiva pink, sclera anicteric Pupils: Present: PERRL - Neck Neck exam general surgery: Present: supple, trachea midline. Absent: lymphadenopathy - Respiratory Respiratory exam: Present: CTAB. Absent: accessory muscle use, rales, rhonchi, wheezes - Cardiovascular Cardiovascular exam: Present: RRR, +S1, +S2. Absent: diastolic murmur, gallop, rubs, systolic murmur - GI/Abdominal GI/Abdominal exam: Present: normal bowel sounds, soft, no peritoneal signs. Absent: distended, tenderness - Extremities Exam Extremities exam: Present: warm, radial pulses palpable and symmetrical. Absent : calf tenderness, cyanotic, pedal edema - Neurological Exam Neurological exam: Present: CN II-XII intact, oriented X3, no focal deficits. Absent: pronater drift, facial droop, speech deficit - Skin Skin exam: Present: dry, intact Internal Medicine: Result - Labs CBC & Chem 7: 07/09/17 07:07 07/10/17 09:25 - ABG Interpretation ABG results: PT/INR, D-dimer PT 15.5 Seconds (9.4-12.1) H 07/10/17 06:01 - Impressions Impressions Chest X-Ray 07/10/17 04:40
[2017-07-10] MEDS: Bisacodyl 10 MG RECTAL SUPPOSITORY RC SCH (08:47)
[2017-07-10] MEDS: Furosemide 40 MG/4 ML VIAL IVP SCH ×2 (08:47→21:48)
[2017-07-10] MEDS: Metoprolol XL (24 HR) Succ 50 MG TAB.ER.24H PO SCH ×2 (08:47→21:47)
[2017-07-10] MEDS: *HR* OxyCODONE Immed Rel 15 MG TABLET PO SCH ×2 (08:47→21:47)
[2017-07-10] MEDS: Aspirin Enteric Coated 81 MG Tablet PO SCH (08:47)
[2017-07-10] MEDS: DEXTROAMPHETAMINE SULFATE 10 MG PO SCH ×2 (08:48→09:54)
[2017-07-10] MEDS: Sennosides/Docusate Sodium TABLET PO SCH ×2 (08:48→21:47)
[2017-07-10] MEDS: *HR* Insulin Regular U-500 500 UNIT/ML SQ SCH ×2 (09:59→11:58)
[2017-07-10] MEDS: Insulin LISPRO 300 UNITS/3 ML VIAL SQ SCH ×2 (09:59→11:57)
[2017-07-10 10:42] LABS: Calcium 10.2 mg/dL (8.6-10.3); Potassium 4.3 mEq/L (3.5-5.1)
[2017-07-10] MEDS: Acetaminophen 325 MG TABLET PO PRN (14:46)
--- NOTE | 2017-07-10 15:05 | Cardiology Progress Note ---
Date of Encounter: 07/10/17 Time of Encounter: 13:30 Assessment and Plan (1) Atrial flutter with rapid ventricular response Current Visit: Yes Status: Acute Per Cardiology: -Apparent new onset A. fib. -Average HR previous 12 hours noted to be 99, a.flutter. -On toprol 100mg BID. SBP 120-130s. - Found to have apical thrombus-- DCCV contraindicated. Continue with rate control strategy. -Again, recommend avoid CCB since EF down to 20-25%. -Can consider amio or digoxin (discussed with Dr. De Dios). -Regarding long-term anticoagulation, currently on IV heparin drip, will need bridging since now found to have thrombus. -Recs to initiate Coumadin with target INR 2.0-3.0. -Cardiology will sign off. Will set up outpatient follow up. Of note, [place]. -[place] need to follow with [place] cou[place]. (2) Elevated troponin Current Visit: Yes Status: Acute Per Cardiology: -Troponins flat and adynamic with peak of 0.06 in setting of A. fib with RVR. -However, EF noted to be down to 20%. -Status post catheterization-- nonobstructive CAD. -Suspect demand ischemia. (3) Cardiomyopathy Current Visit: Yes Status: Acute Per Cardiology: -Per records preserved EF in 2016. -EF now noted to be 20-25%. -On strict I's and O's, 1.5 L fluid restriction, daily weights. -On beta leonila. -Discussed with pateint regarding recommendations for rober/arb for cardiomyopathy. Patient refusing, states he is "allergic to pretty much all of them." Now with worsening renal function. -According to medical records patient net I&O +[id number]. -Started on IV lasix per primary service. Put out about 2L overnight. - Lung sounds clear to auscultation, mild pedal edema noted. -Kidney function worsened today. -Will continue to monitor in outpatient setting. Qualifiers: Cardiomyopathy type: unspecified Qualified Code(s): I42.9 - Cardiomyopathy , unspecified (4) CAD (coronary artery disease) Current Visit: Yes Status: Chronic Per Cardiology: -Catheterization showed mid LAD 40%, distal circumflex 40%, OM1 40% lesions. Previous stents to proximal LAD patent. -On asa, bb, statin. LFTs stable. Qualifiers: Coronary Disease-Associated Artery/Lesion type: [place] artery [place] vs. transplanted heart: [place] heart Associated angina: without angina Qualified Code(s): I25.10 - Atherosclerotic heart disease of [place] coronary artery without angina pectoris (5) Left ventricular apical thrombus Current Visit: Yes Status: Resolved Per Cardiology: -Repeat limited echo with Definity shows small echodensity of the apical/septal and apical/inferior LV suggestive of thrombus. - Currently on IV heparin drip. - Recommend continue with bridging. -Of note, [facility] [place] [facility]. (6) BRENT (acute kidney injury) Current Visit: Yes Status: Acute Per Cardiology: -Renal function slightly worse today, from yesterday. -TOday 1.54. -Management per primary service. Discussion w patient/family: The assessment and plan as outlined above was discussed with the patient who expressed understanding and agreement. All questions were answered. Thank you for involving us in the care of your patient. Please call with any questions. Discussed and reviewed with . Subjective Principal diagnosis: Afib, cardiomyopathy Interval history: Patient denies chest pain. Denies issues walking or using right leg. Reports improvement in edema today. Objective Vital Signs, Last 4 Hours Temp Pulse Resp BP Pulse Ox 07/10/17 11:49 97.9 F 89 18 110/64 95 General: Conversant, No Apparent Distress HEENT: Atraumatic, Normocephaly, Mucus Membranes Moist Neck: No JVD, Normal carotid pulses Cardiac: Normal S1 and S2, No Murmur, Other (Irregularlry irregular) Lungs: Normal Breath Sounds, No Wheeze, Rales, Rhonchi Neuro: Alert and responsive, No focal deficits noted Abdomen: Soft, Non-Tender Skin: No rashes noted on visualized skin Musculoskeletal: No Chest Wall Tenderness Extremities: No Clubbing, No Cyanosis, Normal Pulses, Other (Mild bilateral pedal edema noted. ) Results 07/09/17 07:07 07/10/17 09:25 Lab Results Impressions Chest X-Ray 07/10/17 04:40 IMPRESSION: Possible developing right basilar atelectasis or pneumonia. D/ / Vitaly Aleman MD / Vitaly Aleman MD Interpreting Provider: Vitaly Aleman MD Active Medications Acetaminophen (Tylenol) 650 mg PO Q6H PRN PRN Reason: Mild-moderate pain Stop: 01/08/18 04:41 Last Admin: 07/10/17 14:46 Dose: 650 mg Artificial Tears (Akwa Tears) 1 drop BOTH EYES BID PRN PRN Reason: Dry Eye(s) Aspirin (Aspirin Ec) 81 mg PO DAILY [facility] Stop: 01/04/18 09:01 Last Admin: 07/10/17 08:47 Dose: 81 mg Atorvastatin Calcium (Lipitor) 80 mg PO HS [facility] Stop: 01/07/18 21:01 Last Admin: 07/09/17 20:43 Dose: Not Given Bisacodyl (Dulcolax) 10 mg RC DAILY [facility] Stop: 01/05/18 16:16 Last Admin: 07/10/17 08:47 Dose: Not Given Dextrose/Water (Dextrose 50% (Syg)) 25 ml IVP AD PRN PRN Reason: Hypoglycemia Stop: 01/03/18 17:38 Last Admin: 07/09/17 23:40 Dose: 25 ml Furosemide (Lasix) 40 mg IVP BID [facility] Stop: 01/08/18 14:16 Last Admin: 07/10/17 08:47 Dose: 40 mg Glucagon (Glucagen) 1 mg IM ONCE PRN PRN Reason: Hypoglycemia Stop: 01/03/18 17:38 Glucose (Gluctose) 15 gm PO ONCE PRN PRN Reason: Hypoglycemia Stop: 01/03/18 17:38 Glucose (Gluctose) 30 gm PO ONCE PRN PRN Reason: Hypoglycemia Stop: 01/03/18 17:38 Heparin Sodium (Porcine) (Heparin) 9,000 unit IVP Q6HR PRN PRN Reason: SEE COMMENTS Stop: 01/04/18 11:26 Last Admin: 07/07/17 18:44 Dose: 9,000 unit Heparin Sodium (Porcine) (Heparin) 4,500 unit IVP Q6H PRN PRN Reason: SEE COMMENTS Stop: 01/04/18 11:26 Dextrose (Dextrose 5%) 1,000 mls @ 100 mls/hr IVC .Q10H PRN PRN Reason: HYPOGLYCEMIA Stop: 09/15/18 17:38 Heparin Sodium/Dextrose (Heparin 25,000 Unit/500 Ml D5w) 25,000 unit in 500 mls @ 42.812 mls/hr IVC .[id number] [facility]; 14 UNIT/KG/HR PRN Reason: Protocol Stop: 01/04/18 11:31 Last Admin: 07/10/17 05:22 Dose: 10.74 unit/kg/hr, 32.843 mls/hr Insulin Human Regular (Concentrated (Humulin R U-500) 0 unit SQ 1200 [facility] PRN Reason: Protocol Stop: 01/04/18 12:01 Last Admin: 07/10/17 11:58 Dose: Not Given Insulin Human Regular (Concentrated (Humulin R U-500) 0 unit SQ 0800 [facility] PRN Reason: Protocol Stop: 01/04/18 08:01 Last Admin: 07/10/17 09:59 Dose: Not Given Insulin Human Regular (Concentrated (Humulin R U-500) 0 unit SQ QPM [facility] PRN Reason: Protocol Stop: 01/08/18 18:01 Last Admin: 07/09/17 17:24 Dose: Not Given Levalbuterol HCl (Xopenex) 1.25 mg IH [id number] PRN PRN Reason: Shortness Of Breath Stop: 01/03/18 22:01 Last Admin: 07/10/17 04:03 Dose: 1.25 mg Metoprolol Succinate (Toprol Xl) 100 mg PO BID [facility] Stop: 01/08/18 21:01 Last Admin: 07/10/17 08:47 Dose: 100 mg Metoprolol Tartrate (Lopressor) 5 mg IVP Q6HR PRN PRN Reason: HR>110 Stop: 01/03/18 20:54 Last Admin: 07/08/17 00:54 Dose: 5 mg Naloxone HCl (Narcan) 0.4 mg IVP Q2MIN PRN PRN Reason: SEE COMMENTS Stop: 01/03/18 17:27 Oxycodone HCl (Roxicodone) 30 mg PO BID [facility] Stop: 01/03/18 21:16 Last Admin: 07/10/17 08:47 Dose: 30 mg Pharmacy Profile Note (Patient Taking Own Medication) 1 each PO QAM [facility] Stop: 01/04/18 09:01 Last Admin: 07/10/17 09:54 Dose: 1 each Polyethylene Glycol (Miralax) 17 gm PO HS PRN PRN Reason: Constipation Stop: 01/03/18 17:19 Promethazine HCl (Phenergan) 12.5 mg IV Q6HR PRN PRN Reason: Nausea And Vomiting Stop: 01/03/18 21:16 Last Admin: 07/09/17 21:06 Dose: 12.5 mg Senna/Docusate Sodium (Senna Plus) 1 each PO BID [facility] PRN Reason: Protocol Stop: 01/03/18 21:01 Last Admin: 07/10/17 08:48 Dose: 1 each Simethicone (Gas-X) 160 mg PO Q4H PRN PRN Reason: Dyspepsia Stop: 01/07/18 16:24 Last Admin: 07/09/17 17:19 Dose: 160 mg Warfarin Sodium (Coumadin Perpt) 1 each PO DAILY@1800 PRN PRN Reason: SEE COMMENTS Stop: 01/07/18 18:01 Warfarin Sodium (Coumadin) 5 mg PO 1800 ONE Stop: 07/10/17 18:01 Laboratory Tests 07/09/17 07/10/17 07/10/17 07:07 06:01 09:25 INR 1.4 Creatinine 1.38 H 1.51 H - Imaging and Cardiology Chest Xray: report reviewed Echo: report reviewed Cardiac cath: report reviewed - EKG Interpretation EKG results cardiology: other (Telemetry reviewed with average HR previous 12 hours noted to be 99, a.flutter. PVCs couplets noted.) Consult Discharge Plan - Plan [facility]errals: [facility] [Primary Care Provider] -
[2017-07-10] MEDS: Simethicone 80 MG TAB.CHEW PO PRN ×2 (16:36→21:47)
[2017-07-10] MEDS ORDERED: *HR* Insulin Regular U-500 500 UNIT/ML SQ ONE (17:00)
[2017-07-10] MEDS ORDERED: *HR* Warfarin 5 MG TABLET PO ONE (18:00)
[2017-07-10] MEDS: *HR* Promethazine 25 MG/ML VIAL IV PRN (23:56)
[2017-07-11] MEDS: *HR* Promethazine 25 MG/ML VIAL IV PRN ×2 (06:28→16:11)
[2017-07-11] MEDS ORDERED: *HR* Insulin Regular U-500 500 UNIT/ML SQ ONE ×2 (07:45→12:00)
[2017-07-11 08:06] LABS: Basophils # 0.1 K/mcL (0.0-0.2); Basophils % 1.2 %; Eosinophils # 0.4 K/mcL (0.0-0.6); Eosinophils % 3.6 %; Hematocrit 44.8 % (37.5-50.1); Hemoglobin 14.5 g/dL (12.9-16.9); Immature Granulocytes % 0.2 % (0-4); Lymphocytes # 2.2 K/mcL (0.6-4.6); Lymphocytes % 22.6 %; Mean Corpuscular HGB Conc 32.4 g/dL (31.6-35.5); Mean Corpuscular Volume 89.6 fL (83.0-100.0); Mean Platelet Volume 10.3 fL (9.4-12.4); Monocytes # 0.8 K/mcL (0.0-1.3); Monocytes % 8.2 %; Neutrophils # 6.2 K/mcL (1.6-8.9); Platelet Count 272 K/mcL (140-400); Red Cell Distribution Width 13.9 % (11.5-14.5); Segmented Neutrophils % 64.2 %
[2017-07-11 08:18] LABS: INR 1.6; Prothrombin Time 17.4 Seconds (9.4-12.1)
[2017-07-11 08:24] LABS: Calcium 9.9 mg/dL (8.6-10.3); Potassium 4.9 mEq/L (3.5-5.1)
--- NOTE | 2017-07-11 08:54 | Internal Med Progress Note ---
<Kenny Larry - Last Filed: 07/11/17 11:41> Date of Encounter: 07/11/17 Time of Encounter: 08:52 - Assessment and plan (1) Atrial fibrillation with RVR Current Visit: Yes Status: Acute Assessment and plan: -New onset atrial flutter/fibrillation with RVR (HRs in 130s) -TTE with EF 20%, moderately dilated left atrium and hypokinestic wall motion -Initially managed with Cardizem gtt however this was weaned with newly found systolic dysfunction -BB uptitrated per cardiology with improvement in heart rate -Currently on Toprol 75 mg twice a day. -Consider amiodarone or digoxin. -Avoid calcium channel blockers due to ejection fraction 20-25%. -DCCV contraindicated due to apical thrombus. -Continue Coumadin with heparin gtt -Coumadin with a target INR of 2-3 -Toprol 100 mg twice a day. (2) CHF (congestive heart failure) Current Visit: Yes Status: Acute Assessment and plan: Echocardiogram was performed on 07/07/17; demonstrated the following: -LVEF 20-25%. -Moderately dilated left ventricle. -Severe global left ventricular systolic dysfunction with regional variations. -Small echodensity along the apical septal/apical inferior segments of the LV suggestive of thrombus Has allergy to TIERNEY and coreg -Metoprolol added per cardiology -Received one-time dose IV Lasix per cardiology on 07/08 -Patient's Lasix has been held for the time being due to increased creatinine. -Strict I and O's, fluid restriction, low NA diet, daily weight Qualifiers: Heart failure type: systolic Heart failure chronicity: acute Qualified Code(s): I50.21 - Acute systolic (congestive) heart failure (3) CAD (coronary artery disease) Current Visit: Yes Status: Chronic Assessment and plan: -07/07/2017 LHC showed mid LAD 40%, distal circumflex 40%, OM1 40% lesions -Previous stents to proximal LAD patent -Patient reports allergy to prasugel, Plavix -ASA 81 mg by mouth daily -Lipitor 80 mg by mouth at bedtime -Metoprolol XL 75 mg by mouth twice a day Qualifiers: Coronary Disease-Associated Artery/Lesion type: [place] artery [place] vs. transplanted heart: [place] heart Associated angina: angina presence unspecified Qualified Code(s): I25.10 - Atherosclerotic heart disease of [place] coronary artery without angina pectoris (4) Left ventricular apical thrombus Current Visit: Yes Status: Resolved Assessment and plan: -TTE with Definity showed small echodensity of the apical/septal and apical/ inferior LV suggestive of thrombus -Coumadin initiated (5) Constipation due to opioid therapy Current Visit: Yes Status: Acute Assessment and plan: -Takes oxycodone at home for chronic back pain -Presented with 5 days of constipation -KUB mild to moderate stool volume -Now having BMs -Continue aggressive bowel regimen (6) Diabetes Current Visit: Yes Status: Chronic Assessment and plan: -per hx. Uncontrolled, Hgb A1c 10.4% -Suspect secondary to dietary noncompliance -Cont home U-500 insulin -Sliding scale insulin Qualifiers: Diabetes mellitus type: type 2 Diabetes mellitus control room agent insulin use: unspecified control room agent insulin use status Diabetes mellitus complication status : with unspecified complications Qualified Code(s): E11.8 - Type 2 diabetes mellitus with unspecified complications (7) BRENT (acute kidney injury) Current Visit: Yes Status: Acute Assessment and plan: Possibly secondary to acute onset A. fib -Avoid nephrotoxic agents as possible -Monitor repeat renal function (8) DVT prophylaxis Current Visit: Yes Status: Acute Assessment and plan: Patient is currently on Coumadin - Subjective Interval history: Patient was seen and examined at bedside this morning. Still appears fluid overloaded; slight improvement from yesterday. Patient reports that he has been producing urine well. Complains of a blister on the dorsal aspect of his left foot. No redness or pain. We will continue to observe. Lasix has been held for the time being due to an elevation in creatinine. Continue to monitor strict intake and output. Patient has no further complaints at this time. - Constitutional Vitals: Temp Pulse Resp BP Pulse Ox 97.8 F 111 16 108/53 96 07/11/17 06:52 07/11/17 06:52 07/11/17 06:52 07/11/17 06:52 07/11/17 06:52 General appearance: Present: A&O X 3, morbidly obese, no acute distress, answers questions appropriately - Head Head exam: Present: atraumatic, normocephalic - Eye Eye exam: Present: PERRL, conjuntiva pink, sclera anicteric Pupils: Present: PERRL - Neck Neck exam general surgery: Present: supple, trachea midline. Absent: lymphadenopathy - Respiratory Respiratory exam: Present: CTAB. Absent: accessory muscle use, rales, rhonchi, wheezes - Cardiovascular Cardiovascular exam: Present: RRR, +S1, +S2. Absent: diastolic murmur, gallop, rubs, systolic murmur - GI/Abdominal GI/Abdominal exam: Present: normal bowel sounds, soft, no peritoneal signs. Absent: distended, tenderness - Extremities Exam Extremities exam: Present: pedal edema, warm, radial pulses palpable and symmetrical. Absent: calf tenderness, cyanotic Additional comments: Patient has significant pedal edema; slightly improved from yesterday. - Neurological Exam Neurological exam: Present: CN II-XII intact, oriented X3, no focal deficits. Absent: pronater drift, facial droop, speech deficit - Skin Skin exam: Present: dry, intact Internal Medicine: Result - Labs CBC & Chem 7: 07/11/17 07:45 07/11/17 07:45 Labs: Short CBC 07/11/17 Range/Units 07:45 WBC 9.7 (4.3-11.1) K/mcL Hgb 14.5 (12.9-16.9) g/dL Hct 44.8 (37.5-50.1) % Plt Count 272 (140-400) K/mcL Neutrophils # 6.2 (1.6-8.9) K/mcL BMP 07/10/17 07/11/17 09:25 07:45 Sodium 137 133 L Potassium 4.3 4.9 Chloride 99 98 Carbon Dioxide 24 26 BUN 34 H 36 H Creatinine 1.51 H 1.57 H Glucose 110 H 270 H Calcium 10.2 9.9 - ABG Interpretation ABG results: PT/INR, D-dimer PT 17.4 Seconds (9.4-12.1) H 07/11/17 07:45 Consult Discharge Plan - Plan [facility]errals: [facility] [Primary Care Provider[facility] - <Jef Jones - Last Filed: 07/11/17 13:20> Date of Encounter: 07/11/17 - Constitutional Vitals: Temp Pulse Resp BP Pulse Ox 97.8 F 111 16 108/53 96 07/11/17 06:52 07/11/17 06:52 07/11/17 06:52 07/11/17 06:52 07/11/17 06:52 Internal Medicine: Result - Labs CBC & Chem 7: 07/11/17 07:45 07/11/17 07:45 Labs: Short CBC 07/11/17 Range/Units 07:45 WBC 9.7 (4.3-11.1) K/mcL Hgb 14.5 (12.9-16.9) g/dL Hct 44.8 (37.5-50.1) % Plt Count 272 (140-400) K/mcL Neutrophils # 6.2 (1.6-8.9) K/mcL BMP 07/11/17 07:45 Sodium 133 L Potassium 4.9 Chloride 98 Carbon Dioxide 26 BUN 36 H Creatinine 1.57 H Glucose 270 H Calcium 9.9 - ABG Interpretation ABG results: PT/INR, D-dimer PT 17.4 Seconds (9.4-12.1) H 07/11/17 07:45 - Attending Attestation I performed an independent interview and examine this patient. I agree with the findings, assessment, and plan of Dr. Larry, internal medicine general internist. H& H creatinine did increase today so we stopped his Lasix. We will hold it for a day. Patient does appear to improving overall and he has had some diuresis. Still complaining of leg swelling but much improved. Continued anticoagulation with heparin drip and Coumadin until his INR is therapeutic. We will need overlap of 24-48 hours of therapeutic INR prior to stopping heparin drip. Cardiology input is appreciated. All else as above.
[2017-07-11] MEDS: Aspirin Enteric Coated 81 MG Tablet PO SCH (09:14)
[2017-07-11] MEDS: Sennosides/Docusate Sodium TABLET PO SCH ×2 (09:14→21:23)
[2017-07-11] MEDS: Metoprolol XL (24 HR) Succ 50 MG TAB.ER.24H PO SCH ×2 (09:14→21:23)
[2017-07-11] MEDS: *HR* OxyCODONE Immed Rel 15 MG TABLET PO SCH ×2 (09:14→21:23)
[2017-07-11] MEDS: Bisacodyl 10 MG RECTAL SUPPOSITORY RC SCH (09:15)
[2017-07-11] MEDS: *HR* Insulin Regular U-500 500 UNIT/ML SQ SCH ×3 (10:09→18:41)
[2017-07-11] MEDS: DEXTROAMPHETAMINE SULFATE 10 MG PO SCH (10:10)
[2017-07-11] MEDS ORDERED: *HR* Warfarin 5 MG TABLET PO ONE (18:00)
[2017-07-11] MEDS: Levalbuterol Neb 1.25 MG/3 ML IH PRN (20:55)
[2017-07-11] MEDS: Simethicone 80 MG TAB.CHEW PO PRN (21:23)
[2017-07-12 04:10] LABS: INR 1.6; Prothrombin Time 17.9 Seconds (9.4-12.1)
[2017-07-12] MEDS: Simethicone 80 MG TAB.CHEW PO PRN (05:41)
[2017-07-12] MEDS: Heparin 25,000 UNIT/500 ML D5W 25,000 UNIT/500 ML BAG IVC SCH ×2 (07:13→22:35)
[2017-07-12] MEDS: Acetaminophen 325 MG TABLET PO PRN ×2 (07:13→23:53)
[2017-07-12] MEDS: Aspirin Enteric Coated 81 MG Tablet PO SCH (08:32)
[2017-07-12] MEDS: *HR* OxyCODONE Immed Rel 15 MG TABLET PO SCH ×2 (08:32→20:03)
[2017-07-12] MEDS: Sennosides/Docusate Sodium TABLET PO SCH ×2 (08:33→20:04)
[2017-07-12] MEDS: Bisacodyl 10 MG RECTAL SUPPOSITORY RC SCH (08:34)
[2017-07-12] MEDS: Metoprolol XL (24 HR) Succ 50 MG TAB.ER.24H PO SCH ×2 (08:34→20:04)
[2017-07-12] MEDS ORDERED: *HR* Insulin Regular U-500 500 UNIT/ML SQ ONE ×3 (08:57→16:30)
[2017-07-12 09:24] LABS: Calcium 10.1 mg/dL (8.6-10.3); Potassium 5.7 mEq/L (3.5-5.1)
[2017-07-12] MEDS: DEXTROAMPHETAMINE SULFATE 10 MG PO SCH (09:30)
[2017-07-12] MEDS: *HR* Insulin Regular U-500 500 UNIT/ML SQ SCH ×3 (09:49→20:03)
--- NOTE | 2017-07-12 10:11 | Internal Med Progress Note ---
Date of Encounter: 07/12/17 Time of Encounter: 10:20 - Assessment and plan (1) Cardiomyopathy Current Visit: Yes Status: Acute Assessment and plan: Per Cardiology: -Per records preserved EF in 2016. -EF now noted to be 20-25%. -On strict I's and O's, 1.5 L fluid restriction, daily weights. -On beta leonila. -Discussed with pateint regarding recommendations for romel/arb for cardiomyopathy. Patient refusing, states he is "allergic to pretty much all of them." Now with worsening renal function. -According to medical records patient net I&O +[id number]. -Started on IV lasix per primary service. Put out about 2L overnight. - Lung sounds clear to auscultation, mild pedal edema noted. -Kidney function worsened today. -Will continue to monitor in outpatient setting 07/12: This patient has a acute on chronic systolic CHF. Unclear when the cardiomyopathy began as his EF in 2016 was normal. Kidney with beta leonila. Aspirin. Will restart Lasix but make it by mouth today due to recent renal dysfunction. Continue to monitor. Qualifiers: Cardiomyopathy type: unspecified Qualified Code(s): I42.9 - Cardiomyopathy , unspecified (2) Atrial fibrillation with RVR Current Visit: Yes Status: Acute Assessment and plan: Per Cardiology: -Apparent new onset A. fib. -Average HR previous 12 hours noted to be 99, a.flutter. -On toprol 100mg BID. SBP 120-130s. - Found to have apical thrombus-- DCCV contraindicated. Continue with rate control strategy. -Again, recommend avoid CCB since EF down to 20-25%. -Can consider amio or digoxin (discussed with Dr. De Dios). -Regarding long-term anticoagulation, currently on IV heparin drip, will need bridging since now found to have thrombus. -Recs to initiate Coumadin with target INR 2.0-3.0. 07/12: Rate is controlled. Continues on anticoagulation. We are waiting for him to become therapeutic. Patient also with a left apical thrombus necessitating use of Coumadin as opposed to NOAC. (3) Elevated troponin Current Visit: Yes Status: Acute Assessment and plan: Workup as per cardiology. (4) CAD (coronary artery disease) Current Visit: Yes Status: Chronic Qualifiers: Coronary Disease-Associated Artery/Lesion type: [place] artery [place] vs. transplanted heart: [place] heart Associated angina: angina presence unspecified Qualified Code(s): I25.10 - Atherosclerotic heart disease of [place] coronary artery without angina pectoris (5) BRENT (acute kidney injury) Current Visit: Yes Status: Acute Assessment and plan: I suspect he has acute kidney injury, superimposed on chronic kidney failure stage III. We are restarting Lasix cautiously. We continue to hold Romel and ARB. He should also states he is allergic to both Romel and ARB. (6) Diabetes Current Visit: Yes Status: Chronic Assessment and plan: -per hx. Uncontrolled, Hgb A1c 10.4% -Suspect secondary to dietary noncompliance -Cont home U-500 insulin -Sliding scale insulin Qualifiers: Diabetes mellitus type: type 2 Diabetes mellitus retirement insulin use: unspecified retirement insulin use status Diabetes mellitus complication status : with unspecified complications Qualified Code(s): E11.8 - Type 2 diabetes mellitus with unspecified complications Qualifiers: Diabetes mellitus type: type 2 Diabetes mellitus intermodal dispatcher insulin use: unspecified intermodal dispatcher insulin use status Diabetes mellitus complication status : with unspecified complications Qualified Code(s): E11.8 - Type 2 diabetes mellitus with unspecified complications (7) Hypertension Current Visit: Yes Status: Acute Assessment and plan: Continue to monitor. Reasonable control presently. Qualifiers: Qualified Code(s): I10 - Essential (primary) hypertension (8) Constipation due to opioid therapy Current Visit: Yes Status: Acute Assessment and plan: -Takes oxycodone at home for chronic back pain -Presented with 5 days of constipation -KUB mild to moderate stool volume -Now having BMs -Continue aggressive bowel regimen - Time Spent With Patient 25 - 35 minutes - Subjective Interval history: 56-year-old male with past medical history of COPD, morbid obesity, coronary disease, diabetes mellitus on insulin, hypertension. Patient was admitted to our facility on 07/08/17 for atrial flutter with rapid reticular response. This was felt to be new atrial flutter. Workup since admission has included an echocardiogram which showed EF of 20-25% which is new. He was also noted on echo to have an apical thrombus and is thus on Coumadin and heparin. Goal INR of 2.0-3.0. We are still awaiting him to become therapeutic. He did have a cardiac catheterization which showed nonobstructive coronary artery disease. Patient does struggle with significant fluid buildup in his legs and his scrotum for which we have diuresed. He has improved. His Lasix was held yesterday due to an increase in his creatinine from 1.24 on admission to 1.55. Today patient states his breathing is improved. He still is complaining of swelling in his legs but this is also somewhat better. He does no blistering on the dorsums of his feet. He denies a chest pain. No nausea, vomiting, diarrhea. No fevers or chills. - Constitutional Vitals: Temp Pulse Resp BP Pulse Ox 97.6 F 105 22 140/101 97 07/12/17 06:51 07/12/17 06:51 07/12/17 06:51 07/12/17 06:51 07/12/17 06:51 General appearance: Present: A&O X 3, morbidly obese, no acute distress, answers questions appropriately - Head Head exam: Present: atraumatic, normocephalic - Eye Eye exam: Present: PERRL, conjuntiva pink, sclera anicteric Pupils: Present: PERRL - Neck Neck exam general surgery: Present: supple, trachea midline. Absent: lymphadenopathy - Respiratory Respiratory exam: Present: decreased breath sounds - Cardiovascular Cardiovascular exam: Present: irregular rhythm - GI/Abdominal GI/Abdominal exam: Present: normal bowel sounds, soft, no peritoneal signs. Absent: distended, tenderness - Extremities Exam Additional comments: Pitting edema bilateral lower extremities to the thighs, scrotal edema. Also blistering dorsums of his feet, with one open blister on the dorsum of his left foot, approximate a quarter in size area and no evidence of infection. - Neurological Exam Neurological exam: Present: CN II-XII intact, oriented X3, no focal deficits. Absent: pronater drift, facial droop, speech deficit Internal Medicine: Result - Labs CBC & Chem 7: 07/11/17 07:45 07/12/17 08:35 Labs: BMP 07/12/17 08:35 Sodium 132 L Potassium 5.7 H Chloride 98 Carbon Dioxide 28 BUN 34 H Creatinine 1.55 H Glucose 182 H Calcium 10.1 - ABG Interpretation ABG results: PT/INR, D-dimer PT 17.9 Seconds (9.4-12.1) H 03/24/18 03:38 Consult Discharge Plan - Plan [facility]errals: [facility] [Primary Care Provider] -
[2017-07-12] MEDS: Furosemide 40 MG TABLET PO SCH (16:51)
[2017-07-12] MEDS ORDERED: *HR* Warfarin 5 MG TABLET PO ONE (18:00)
[2017-07-12] MEDS: Levalbuterol Neb 1.25 MG/3 ML IH PRN (21:25)
[2017-07-13 06:40] LABS: INR 1.8; Prothrombin Time 19.7 Seconds (9.4-12.1)
[2017-07-13 06:44] LABS: Activated Partial Thrombo Time 84.5 Seconds (26.0-36.0)
[2017-07-13] MEDS ORDERED: *HR* Insulin Regular U-500 500 UNIT/ML SQ ONE ×3 (07:56→18:00)
[2017-07-13 08:14] LABS: Calcium 9.8 mg/dL (8.6-10.3); Potassium 4.1 mEq/L (3.5-5.1)
[2017-07-13] MEDS: Sennosides/Docusate Sodium TABLET PO SCH ×2 (09:14→09:15)
[2017-07-13] MEDS: Metoprolol XL (24 HR) Succ 50 MG TAB.ER.24H PO SCH ×2 (09:15→20:21)
[2017-07-13] MEDS: Furosemide 40 MG TABLET PO SCH ×2 (09:15→17:17)
[2017-07-13] MEDS: Aspirin Enteric Coated 81 MG Tablet PO SCH (09:15)
[2017-07-13] MEDS: *HR* OxyCODONE Immed Rel 15 MG TABLET PO SCH ×2 (09:15→20:22)
[2017-07-13] MEDS: DEXTROAMPHETAMINE SULFATE 10 MG PO SCH (09:16)
[2017-07-13] MEDS: *HR* Insulin Regular U-500 500 UNIT/ML SQ SCH ×3 (09:16→19:20)
[2017-07-13] MEDS: Bisacodyl 10 MG RECTAL SUPPOSITORY RC SCH (09:16)
--- NOTE | 2017-07-13 10:26 | Internal Med Progress Note ---
Date of Encounter: 07/13/17 Time of Encounter: 09:30 - Assessment and plan (1) Cardiomyopathy Current Visit: Yes Status: Acute Assessment and plan: Per Cardiology: -Per records preserved EF in 2016. -EF now noted to be 20-25%. -On strict I's and O's, 1.5 L fluid restriction, daily weights. -On beta leonila. -Discussed with pateint regarding recommendations for romel/arb for cardiomyopathy. Patient refusing, states he is "allergic to pretty much all of them." Now with worsening renal function. -According to medical records patient net I&O +7806ml. -Started on IV lasix per primary service. Put out about 2L overnight. - Lung sounds clear to auscultation, mild pedal edema noted. -Kidney function worsened today. -Will continue to monitor in outpatient setting 07/12: This patient has a acute on chronic systolic CHF. Unclear when the cardiomyopathy began as his EF in 2015 was normal. Continue with beta leonila. Aspirin. Will restart Lasix but make it by mouth today due to recent renal dysfunction. Continue to monitor. 07/13: Clinically patient is improved, however his creatinine has increased. We will stop his Lasix today, encourage oral fluids and repeat a BMP in the morning. He is approaching compensation for his CHF. Qualifiers: Cardiomyopathy type: unspecified Qualified Code(s): I42.9 - Cardiomyopathy , unspecified (2) Atrial fibrillation with RVR Current Visit: Yes Status: Acute Assessment and plan: Per Cardiology: -Apparent new onset A. fib. -Average HR previous 12 hours noted to be 99, a.flutter. -On toprol 100mg BID. SBP 120-130s. - Found to have apical thrombus-- DCCV contraindicated. Continue with rate control strategy. -Again, recommend avoid CCB since EF down to 20-25%. -Can consider amio or digoxin (discussed with Dr. De Dios). -Regarding long-term anticoagulation, currently on IV heparin drip, will need bridging since now found to have thrombus. -Recs to initiate Coumadin with target INR 2.0-3.0. 07/12: Rate is controlled. Continues on anticoagulation. We are waiting for him to become therapeutic. Patient also with a left apical thrombus necessitating use of Coumadin as opposed to NOAC. 07/13: INR 1.8. Continues heparin drip, pharmacy dosing Coumadin. (3) Elevated troponin Current Visit: Yes Status: Acute Assessment and plan: Workup as per cardiology. (4) CAD (coronary artery disease) Current Visit: Yes Status: Chronic Qualifiers: Coronary Disease-Associated Artery/Lesion type: [place] artery [place] vs. transplanted heart: [place] heart Associated angina: angina presence unspecified Qualified Code(s): I25.10 - Atherosclerotic heart disease of [place] coronary artery without angina pectoris (5) RBENT (acute kidney injury) Current Visit: Yes Status: Acute Assessment and plan: I suspect he has acute kidney injury, superimposed on chronic kidney failure stage III. We are restarting Lasix cautiously. We continue to hold Romel and ARB. He should also states he is allergic to both Romel and ARB. 07/13: As creatinine has worsened today, Lasix remains on hold. We will repeat creatinine in the morning. (6) Diabetes Current Visit: Yes Status: Chronic Assessment and plan: -per hx. 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 Reasonable control presently. Qualifiers: Hypertension type: essential hypertension Qualified Code(s): I10 - Essential (primary) hypertension (8) Constipation due to opioid therapy Current Visit: Yes Status: Acute Assessment and plan: -Takes oxycodone at home for chronic back pain -Presented with 5 days of constipation -KUB mild to moderate stool volume -Now having BMs -Continue aggressive bowel regimen - Time Spent With Patient 25 - 35 minutes - Subjective Interval history: 56-year-old male with past medical history of COPD, morbid obesity, coronary disease, diabetes mellitus on insulin, hypertension. Patient was admitted to our facility on 07/08/17 for atrial flutter with rapid reticular response. This was felt to be new atrial flutter. Workup since admission has included an echocardiogram which showed EF of 20-25% which is new. He was also noted on echo to have an apical thrombus and is thus on Coumadin and heparin. Goal INR of 2.0-3.0. We are still awaiting him to become therapeutic. He did have a cardiac catheterization which showed nonobstructive coronary artery disease. Patient does struggle with significant fluid buildup in his legs and his scrotum for which we have diuresed. He has improved. His Lasix was held yesterday due to an increase in his creatinine from 1.24 on admission to 1.55. Today patient states his breathing is improved. He still is complaining of swelling in his legs but this is also somewhat better. He does no blistering on the dorsums of his feet. He denies a chest pain. No nausea, vomiting, diarrhea. No fevers or chills. 07/13: Overall patient states he feels better. Shortness of breath has resolved. He has persistent swelling in his legs but it is much improved. He has no fevers or chills. No chest pain. No nausea, vomiting, diarrhea. His INR today is 1.8. His creatinine unfortunately increased from 1.55 yesterday to 2.05 today. His vital signs remained stable and he is satting 97% on room air, most recent blood pressure 117/97. - Constitutional Vitals: Temp Pulse Resp BP Pulse Ox 97.8 F 9 16 117/97 97 07/13/17 06:51 07/13/17 06:51 07/13/17 06:51 07/13/17 06:51 07/13/17 06:51 General appearance: Present: A&O X 3, morbidly obese, no acute distress, answers questions appropriately - Head Head exam: Present: atraumatic, normocephalic - Eye Eye exam: Present: PERRL, conjuntiva pink, sclera anicteric Pupils: Present: PERRL - Neck Neck exam general surgery: Present: supple, trachea midline. Absent: lymphadenopathy - Respiratory Respiratory exam: Present: CTAB. Absent: accessory muscle use, rales, rhonchi, wheezes - Cardiovascular Cardiovascular exam: Present: irregular rhythm - GI/Abdominal GI/Abdominal exam: Present: bruit - Extremities Exam Additional comments: 2+ edema bilaterally - Neurological Exam Neurological exam: Present: CN II-XII intact, oriented X3, no focal deficits. Absent: pronater drift, facial droop, speech deficit - Skin Skin exam: Present: dry, intact Additional comments: blister on dorsum of right foot is filled with serous fluid. The sternum dorsum of left foot is open, no evidence of infection. Both blisters measure approximately 1 cm x 2 cm. Internal Medicine: Result - Labs CBC & Chem 7: 07/11/17 07:45 07/13/17 06:03 Labs: BMP 07/13/17 06:03 Sodium 134 L Potassium 4.1 D Chloride 101 Carbon Dioxide 27 BUN 36 H Creatinine 2.05 H Glucose 98 Calcium 9.8 - ABG Interpretation ABG results: PT/INR, D-dimer PT 19.7 Seconds (9.4-12.1) H 07/13/17 06:03 Consult Discharge Plan - Plan [facility]errals: [facility] [Primary Care Provider] -
[2017-07-13] MEDS: Simethicone 80 MG TAB.CHEW PO PRN (12:34)
[2017-07-13] MEDS: Heparin 25,000 UNIT/500 ML D5W 25,000 UNIT/500 ML BAG IVC SCH (14:27)
[2017-07-13] MEDS ORDERED: Heparin 25,000 UNIT/500 ML D5W 25,000 UNIT/500 ML BAG IVC SCH (14:30)
[2017-07-13] MEDS ORDERED: *HR* Warfarin 5 MG TABLET PO ONE (18:00)
[2017-07-13] MEDS: Acetaminophen 325 MG TABLET PO PRN (20:22)
[2017-07-14] MEDS: *HR* Dextrose 50 % in Water (Syg) 50 ML SYRINGE IVP PRN ×4 (03:27→04:32)
--- NOTE | 2017-07-14 03:54 | Event Note ---
Date of Encounter: 07/14/17 Time of Encounter: 03:48 Responded to [place] stating the patient's blood glucose was 27, associated with decreased alertness and diaphoresis. He did not have IV access. He was somnolent , but arousable for brief periods. He was given glucagon and BG improved to 33. He was also given dextrose gel and his mentation began to improve. IV was gained and he was given D50 and started on D5% in water at 100 mls/hr. He was also given some orange juice once he was able to stay awake. Repeat glucose up to 114 and then he was able to eat solid foods. This happened once before during the night on 07/09/17. Will STOP his evening dose of U-500 for now and further changes can be made by his primary team.
[2017-07-14] MEDS: D5% in Water 1,000 ML IVC PRN (04:09)
[2017-07-14] MEDS: DEXTROAMPHETAMINE SULFATE 10 MG PO SCH (09:01)
[2017-07-14] MEDS: Sennosides/Docusate Sodium TABLET PO SCH ×2 (09:01→22:01)
[2017-07-14] MEDS: Furosemide 40 MG TABLET PO SCH ×2 (09:01→17:13)
[2017-07-14] MEDS: Aspirin Enteric Coated 81 MG Tablet PO SCH (09:01)
[2017-07-14] MEDS: Metoprolol XL (24 HR) Succ 50 MG TAB.ER.24H PO SCH ×2 (09:01→22:01)
[2017-07-14] MEDS: *HR* OxyCODONE Immed Rel 15 MG TABLET PO SCH ×2 (09:01→22:01)
[2017-07-14] MEDS ORDERED: *HR* Insulin Regular U-500 500 UNIT/ML SQ ONE ×2 (09:06→12:30)
[2017-07-14 09:26] LABS: Prothrombin Time 21.5 Seconds (9.4-12.1)
[2017-07-14 09:42] LABS: Calcium 9.5 mg/dL (8.6-10.3); Potassium 4.8 mEq/L (3.5-5.1)
[2017-07-14] MEDS: *HR* Insulin Regular U-500 500 UNIT/ML SQ SCH ×2 (10:00→13:02)
--- NOTE | 2017-07-14 10:15 | Internal Med Progress Note ---
<Jef Jones Eric - Last Filed: 07/14/17 10:24> Date of Encounter: 07/14/17 - Assessment and plan (1) Cardiomyopathy Current Visit: Yes Status: Acute Qualifiers: Cardiomyopathy type: unspecified Qualified Code(s): I42.9 - Cardiomyopathy , unspecified (2) Atrial fibrillation with RVR Current Visit: Yes Status: Acute (3) Elevated troponin Current Visit: Yes Status: Acute (4) CAD (coronary artery disease) Current Visit: Yes Status: Chronic Qualifiers: Coronary Disease-Associated Artery/Lesion type: [place] artery [place] vs. transplanted heart: [place] heart Associated angina: angina presence unspecified Qualified Code(s): I25.10 - Atherosclerotic heart disease of [place] coronary artery without angina pectoris (5) BRENT (acute kidney injury) Current Visit: Yes Status: Acute (6) Diabetes Current Visit: Yes Status: Chronic Qualifiers: Diabetes mellitus type: type 2 Diabetes mellitus [facility] insulin use: unspecified [facility] insulin use status Diabetes mellitus complication status : with unspecified complications Qualified Code(s): E11.8 - Type 2 diabetes mellitus with unspecified complications (7) Hypertension Current Visit: Yes Status: Acute Qualifiers: Hypertension type: essential hypertension Qualified Code(s): I10 - Essential (primary) hypertension (8) Constipation due to opioid therapy Current Visit: Yes Status: Acute - Constitutional Vitals: Temp Pulse Resp BP Pulse Ox 98.2 F 101 17 125/96 92 07/14/17 07:42 07/14/17 07:42 07/14/17 07:42 07/14/17 07:42 07/13/17 22:00 Internal Medicine: Result - Labs CBC & Chem 7: 07/11/17 07:45 07/14/17 09:00 Labs: BMP 07/14/17 09:00 Sodium 127 L Potassium 4.8 Chloride 99 Carbon Dioxide 25 BUN 33 H Creatinine 1.57 H Glucose 313 H Calcium 9.5 - ABG Interpretation ABG results: PT/INR, D-dimer PT 21.5 Seconds (9.4-12.1) H 07/14/17 09:00 Consult Discharge Plan - Plan [facility]errals: [facility]Primary Care Provider[facility] - - Attending Attestation I performed an independent interview and examine this patient. I agree with the findings, assessment, and plan of Dr. Larry, internal medicine business management intern. Patient appears to be approaching compensation with his acute on chronic systolic congestive heart failure with EF of 20%. He continues on beta leonila , Lasix as able. 6 has been placed on hold due to worsening renal function. Patient has persistent edema in bilateral lower extremities as well as some blistering. We will ask wound nurse to see. We will likely need to elevate his legs and consider compression stockings as well. She has known A. fib as well as an apical thrombus for which she is on Coumadin and heparin as recommended by cardiology. Unfortunately it does not appear that there is much literature to support alternative modes of anticoagulation. Patient otherwise is doing well and once his INR is at goal he can be discharged. We will need to ensure a 24-48 hour overlap of therapeutic INR. All else as per Dr. Larry' s note. <Kenny Larry - Last Filed: 07/14/17 13:25> Date of Encounter: 07/14/17 Time of Encounter: 10:12 - Assessment and plan (1) Atrial fibrillation with RVR Current Visit: Yes Status: Acute Assessment and plan: -New onset atrial flutter/fibrillation with RVR (HRs in 130s) -TTE with EF 20%, moderately dilated left atrium and hypokinestic wall motion -Initially managed with Cardizem gtt however this was weaned with newly found systolic dysfunction -BB uptitrated per cardiology with improvement in heart rate -Currently on Toprol 75 mg twice a day. -Consider amiodarone or digoxin. -Avoid calcium channel blockers due to ejection fraction 20-25%. -DCCV contraindicated due to apical thrombus. -Continue Coumadin with heparin gtt -Coumadin with a target INR of 2-3 -Lopressor 5 mg IV every 6 when necessary -Metoprolol XL 100 mg by mouth twice a day (2) CHF (congestive heart failure) Current Visit: Yes Status: Acute Assessment and plan: Echocardiogram was performed on 07/07/17; demonstrated the following: -LVEF 20-25%. -Moderately dilated left ventricle. -Severe global left ventricular systolic dysfunction with regional variations. -Small echodensity along the apical septal/apical inferior segments of the LV suggestive of thrombus Has allergy to TIERNEY and coreg -Strict I and O's, fluid restriction, low NA diet, daily weight -Lasix 40 mg by mouth twice a day Qualifiers: Heart failure type: systolic Heart failure chronicity: acute Qualified Code(s): I50.21 - Acute systolic (congestive) heart failure (3) CAD (coronary artery disease) Current Visit: Yes Status: Chronic Assessment and plan: -07/07/2017 LHC showed mid LAD 40%, distal circumflex 40%, OM1 40% lesions -Previous stents to proximal LAD patent -Patient reports allergy to prasugel, Plavix -ASA 81 mg by mouth daily -Lipitor 80 mg by mouth at bedtime -Metoprolol XL 75 mg by mouth twice a day Qualifiers: Coronary Disease-Associated Artery/Lesion type: [place] artery [place] vs. transplanted heart: [place] heart Associated angina: angina presence unspecified Qualified Code(s): I25.10 - Atherosclerotic heart disease of [place] coronary artery without angina pectoris (4) Left ventricular apical thrombus Current Visit: Yes Status: Resolved Assessment and plan: -TTE with Definity showed small echodensity of the apical/septal and apical/ inferior LV suggestive of thrombus -Coumadin initiated (5) Constipation due to opioid therapy Current Visit: Yes Status: Acute Assessment and plan: -Takes oxycodone at home for chronic back pain -Presented with 5 days of constipation -KUB mild to moderate stool volume -Now having BMs -Continue aggressive bowel regimen (6) Diabetes Current Visit: Yes Status: Chronic Assessment and plan: -per hx. Uncontrolled, Hgb A1c 10.4% -Suspect secondary to dietary noncompliance -Sliding scale insulin Qualifiers: Diabetes mellitus type: type 2 Diabetes mellitus [employer] insulin use: unspecified [facility] insulin use status Diabetes mellitus complication status : with unspecified complications Qualified Code(s): E11.8 - Type 2 diabetes mellitus with unspecified complications (7) DVT prophylaxis Current Visit: Yes Status: Acute Assessment and plan: Patient is currently on Coumadin (8) Constipation Current Visit: Yes Status: Acute Assessment and plan: -Takes oxycodone at home for chronic back pain -Presented with 5 days of constipation -KUB mild to moderate stool volume -Now having BMs -Continue aggressive bowel regimen - Subjective Interval history: 56 male. Admitted on 07/08 for atrial flutter with rapid ventricular response. New-onset. Echocardiogram demonstrated ejection fraction 20-25%. This is new. Was found to have an apical thrombus; on Coumadin and heparin. Goal INR is 2- 3. Had a cardiac catheterization; demonstrated nonobstructive coronary artery disease. Has had significant fluid buildup. He has been diuresed. There was an episode on 07/14 in which patients blood glucose was very low at 27; associated with decreased alertness and diaphoresis. He did not have IV access. He was somnolent, arousable for brief periods. He was given glucagon and blood glucose improved at 33. He was also given dextrose gel and mentation began to improve. When IV access was obtained, he was given D50; started on D5 in water at 100 mils per hour. Also given orange juice. His evening dose of U500 was stopped. Currently on metoprolol XL, Lopressor, Lasix 40 mg by mouth twice a day. Patient was seen and examined at bedside this morning. Patient reports no change in symptoms compared to last week. Still has significant pedal edema. States that he is producing urine well. Denies having any shortness of breath. - Constitutional Vitals: Temp Pulse Resp BP Pulse Ox 98.2 F 101 17 125/96 92 07/14/17 07:42 07/14/17 07:42 07/14/17 07:42 07/14/17 07:42 07/13/17 22:00 General appearance: Present: A&O X 3, morbidly obese, no acute distress, answers questions appropriately - Head Head exam: Present: atraumatic, normocephalic - Eye Eye exam: Present: PERRL, conjuntiva pink, sclera anicteric Pupils: Present: PERRL - Neck Neck exam general surgery: Present: supple, trachea midline. Absent: lymphadenopathy - Respiratory Respiratory exam: Present: rales. Absent: accessory muscle use, rhonchi, wheezes - Cardiovascular Cardiovascular exam: Present: RRR, +S1, +S2. Absent: diastolic murmur, gallop, rubs, systolic murmur - Extremities Exam Extremities exam: Present: pedal edema, warm. Absent: calf tenderness, cyanotic Additional comments: Patient has significant pedal edema bilaterally - Neurological Exam Neurological exam: Present: oriented X3, no focal deficits. Absent: pronater drift, facial droop, speech deficit - Skin Skin exam: Present: dry, intact Internal Medicine: Result - Labs CBC & Chem 7: 07/11/17 07:45 07/14/17 09:00 Labs: BMP 07/14/17 09:00 Sodium 127 L Potassium 4.8 Chloride 99 Carbon Dioxide 25 BUN 33 H Creatinine 1.57 H Glucose 313 H Calcium 9.5 - ABG Interpretation ABG results: PT/INR, D-dimer PT 21.5 Seconds (9.4-12.1) H 07/14/17 09:00
[2017-07-14] MEDS: Bisacodyl 10 MG RECTAL SUPPOSITORY RC SCH (12:17)
[2017-07-14 14:25] LABS: Activated Partial Thrombo Time 155.9 Seconds (26.0-36.0)
[2017-07-14 14:35] LABS: Heparin anti-factor XA UFH 0.6 IU/mL (0.30-0.70)
[2017-07-14] MEDS: *HR* Enoxaparin 80 MG/0.8 ML SYRINGE SQ SCH (17:13)
[2017-07-14] MEDS: Silver Sulfadiazine 50 GM TUBE TP SCH (17:14)
[2017-07-14] MEDS ORDERED: *HR* Enoxaparin 80 MG/0.8 ML SYRINGE SQ SCH (18:00)
[2017-07-14] MEDS ORDERED: *HR* Warfarin 5 MG TABLET PO SCH (18:00)
[2017-07-15] MEDS: *HR* Enoxaparin 80 MG/0.8 ML SYRINGE SQ SCH (05:44)
--- NOTE | 2017-07-15 07:09 | Electrocardiograph Report ---
[place] [address] Test Date: 2017-07-12 Pat Name: Jef Madera Department: 111 Room: 2NE28 Gender: M Field Instructor: : [id number] Requested By: Jef Jones Order Number: [id number] Reading MD: Elan De Dios MD Measurements Intervals [place] Rate: 116 P: VT: 0 QRS: -30 QRSD: 91 T: 126 QT: 328 QTc: 397 Interpretive Statements ATRIAL FIBRILLATION WITH RAPID VENTRICULAR RESPONSE Poor R wave progression BASELINE ARTIFACT Electronically Signed On 07-15-2017 7:08:18 EDT by Elan De Dios MD
--- NOTE | 2017-07-15 07:34 | Internal Med Progress Note ---
<LaronKenny frank - Last Filed: 07/15/17 14:21> Date of Encounter: 07/15/17 Time of Encounter: 09:45 - Assessment and plan (1) Atrial fibrillation with RVR Current Visit: Yes Status: Acute Assessment and plan: -New onset atrial flutter/fibrillation with RVR (HRs in 130s) -TTE with EF 20%, moderately dilated left atrium and hypokinestic wall motion -Initially managed with Cardizem gtt however this was weaned with newly found systolic dysfunction -BB uptitrated per cardiology with improvement in heart rate -Currently on Toprol 75 mg twice a day. -Consider amiodarone or digoxin. -Avoid calcium channel blockers due to ejection fraction 20-25%. -DCCV contraindicated due to apical thrombus. -Continue Coumadin with heparin gtt -Lovenox 160 mg SQ Q12 -Lopressor 5 mg IV every 6 when necessary -Metoprolol XL 100 mg by mouth twice a day (2) CHF (congestive heart failure) Current Visit: Yes Status: Acute Assessment and plan: Echocardiogram was performed on 07/07/17; demonstrated the following: -LVEF 20-25%. -Moderately dilated left ventricle. -Severe global left ventricular systolic dysfunction with regional variations. -Small echodensity along the apical septal/apical inferior segments of the LV suggestive of thrombus Has allergy to TIERNEY and coreg -Strict I and O's, fluid restriction, low NA diet, daily weight -Lasix 40 mg by mouth twice a day Qualifiers: Heart failure type: systolic Heart failure chronicity: acute Qualified Code(s): I50.21 - Acute systolic (congestive) heart failure (3) CAD (coronary artery disease) Current Visit: Yes Status: Chronic Assessment and plan: -07/07/2017 C showed mid LAD 40%, distal circumflex 40%, OM1 40% lesions -Previous stents to proximal LAD patent -Patient reports allergy to prasugel, Plavix -ASA 81 mg by mouth daily -Lipitor 80 mg by mouth at bedtime -Metoprolol XL 75 mg by mouth twice a day Qualifiers: Coronary Disease-Associated Artery/Lesion type: [place] artery [place] vs. transplanted heart: [place] heart Associated angina: angina presence unspecified Qualified Code(s): I25.10 - Atherosclerotic heart disease of [place] coronary artery without angina pectoris (4) Left ventricular apical thrombus Current Visit: Yes Status: Resolved Assessment and plan: -TTE with Definity showed small echodensity of the apical/septal and apical/ inferior LV suggestive of thrombus -Lovenox 160 mg SQ Q12 (5) Constipation due to opioid therapy Current Visit: Yes Status: Acute Assessment and plan: -Takes oxycodone at home for chronic back pain -Presented with 5 days of constipation -KUB mild to moderate stool volume -Now having BMs -Continue aggressive bowel regimen (6) Diabetes Current Visit: Yes Status: Chronic Assessment and plan: -per hx. Uncontrolled, Hgb A1c 10.4% -Suspect secondary to dietary noncompliance -Sliding scale insulin Qualifiers: Diabetes mellitus type: type 2 Diabetes mellitus jail insulin use: unspecified [facility] insulin use status Diabetes mellitus complication status : with unspecified complications Qualified Code(s): E11.8 - Type 2 diabetes mellitus with unspecified complications (7) Constipation Current Visit: Yes Status: Acute Assessment and plan: -Takes oxycodone at home for chronic back pain -Presented with 5 days of constipation -KUB mild to moderate stool volume -Now having BMs -Continue aggressive bowel regimen Qualifiers: Qualified Code(s): K59.00 - Constipation, unspecified (8) Blister of foot Current Visit: Yes Status: Acute Assessment and plan: Possibly 2/2 fungal infection -fluconazole -nystatin -fluid CX Qualifiers: Qualified Code(s): S90.829A - Blister (nonthermal), unspecified foot, initial encounter (9) DVT prophylaxis Current Visit: Yes Status: Acute Assessment and plan: Lovenox - Subjective Interval history: Patient was seen and examined at bedside this morning. Patient reports no change in symptoms compared to last week. Still has significant pedal edema. States that he is producing urine well. Denies having any shortness of breath. Blisters on feet appear to be worsening. - Constitutional Vitals: Temp Pulse Resp BP Pulse Ox 98.4 F 103 17 111/88 93 07/15/17 05:00 07/15/17 06:46 07/15/17 06:46 07/15/17 06:46 07/15/17 05:00 General appearance: Present: A&O X 3, morbidly obese, no acute distress, answers questions appropriately - Head Head exam: Present: atraumatic, normocephalic - Eye Eye exam: Present: PERRL, conjuntiva pink, sclera anicteric Pupils: Present: PERRL - Neck Neck exam general surgery: Present: supple, trachea midline. Absent: lymphadenopathy - Respiratory Respiratory exam: Present: CTAB. Absent: accessory muscle use, rales, rhonchi, wheezes - Cardiovascular Cardiovascular exam: Present: RRR, +S1, +S2. Absent: diastolic murmur, gallop, rubs, systolic murmur - GI/Abdominal GI/Abdominal exam: Present: normal bowel sounds, soft, no peritoneal signs. Absent: distended, tenderness - Extremities Exam Extremities exam: Present: warm, radial pulses palpable and symmetrical. Absent : calf tenderness, cyanotic, pedal edema - Neurological Exam Neurological exam: Present: CN II-XII intact, oriented X3, no focal deficits. Absent: pronater drift, facial droop, speech deficit - Skin Skin exam: Present: dry, intact Internal Medicine: Result - Labs CBC & Chem 7: 07/15/17 07:04 07/15/17 07:04 Labs: BMP 07/14/17 09:00 Sodium 127 L Potassium 4.8 Chloride 99 Carbon Dioxide 25 BUN 33 H Creatinine 1.57 H Glucose 313 H Calcium 9.5 - ABG Interpretation ABG results: PT/INR, D-dimer PT 21.5 Seconds (9.4-12.1) H 07/14/17 09:00 Consult Discharge Plan - Plan [facility]errals: [facility] [Primary Care Provider] - <Josue Cooley H - Last Filed: 07/15/17 15:58> Date of Encounter: 07/15/17 - Constitutional Vitals: Temp Pulse Resp BP Pulse Ox 98.4 F 103 17 111/88 93 07/15/17 05:00 07/15/17 06:46 07/15/17 06:46 07/15/17 06:46 07/15/17 05:00 Internal Medicine: Result - Labs CBC & Chem 7: 07/15/17 07:04 07/15/17 07:04 Labs: Short CBC 07/15/17 Range/Units 07:04 WBC 10.6 (4.3-11.1) K/mcL Hgb 13.4 (12.9-16.9) g/dL Hct 42.9 (37.5-50.1) % Plt Count 281 (140-400) K/mcL Neutrophils # 6.0 (1.6-8.9) K/mcL BMP 07/15/17 07:04 Sodium 134 L Potassium 4.5 Chloride 99 Carbon Dioxide 29 BUN 32 H Creatinine 1.67 H Glucose 91 Calcium 9.7 - ABG Interpretation ABG results: PT/INR, D-dimer PT 23.3 Seconds (9.4-12.1) H 07/15/17 07:04 - Attending Attestation Bilateral lower extremity fungal infection Blisters have progressed since yesterday Start fluconazole and nystatin cream, order bacterial and fungal cultures List likely a bacterial infection as the patient is not fibrillation, white blood cell count is 10.6 Consider dermatology consult if not improving I examined this patient and my medical decision-making was reviewed with the Resident Physician. I agree with the documented findings, disposition and treatment plan as described except to the extent set forth below.
[2017-07-15 07:41] LABS: Basophils # 0.1 K/mcL (0.0-0.2); Basophils % 1.2 %; Eosinophils # 0.5 K/mcL (0.0-0.6); Eosinophils % 5.1 %; Hematocrit 42.9 % (37.5-50.1); Hemoglobin 13.4 g/dL (12.9-16.9); Immature Granulocytes % 0.3 % (0-4); Lymphocytes # 2.7 K/mcL (0.6-4.6); Lymphocytes % 25.2 %; Mean Corpuscular HGB Conc 31.2 g/dL (31.6-35.5); Mean Corpuscular Hemoglobin 28.3 pg (28.0-33.3); Mean Corpuscular Volume 90.7 fL (83.0-100.0); Mean Platelet Volume 9.9 fL (9.4-12.4); Monocytes # 1.2 K/mcL (0.0-1.3); Monocytes % 11.5 %; Platelet Count 281 K/mcL (140-400); Red Blood Count 4.73 M/mcL (4.19-5.50); Red Cell Distribution Width 14.3 % (11.5-14.5); Segmented Neutrophils % 56.7 %
[2017-07-15 07:50] LABS: Calcium 9.7 mg/dL (8.6-10.3); Potassium 4.5 mEq/L (3.5-5.1)
[2017-07-15 08:15] LABS: INR 2.1; Prothrombin Time 23.3 Seconds (9.4-12.1)
[2017-07-15] MEDS: Bisacodyl 10 MG RECTAL SUPPOSITORY RC SCH (09:50)
[2017-07-15] MEDS: Furosemide 40 MG TABLET PO SCH ×2 (09:51→17:47)
[2017-07-15] MEDS: Aspirin Enteric Coated 81 MG Tablet PO SCH (09:51)
[2017-07-15] MEDS: Sennosides/Docusate Sodium TABLET PO SCH ×2 (09:51→20:47)
[2017-07-15] MEDS: DEXTROAMPHETAMINE SULFATE 10 MG PO SCH (09:51)
[2017-07-15] MEDS: Silver Sulfadiazine 50 GM TUBE TP SCH (09:52)
[2017-07-15] MEDS: Metoprolol XL (24 HR) Succ 50 MG TAB.ER.24H PO SCH ×2 (09:52→20:46)
[2017-07-15] MEDS: *HR* OxyCODONE Immed Rel 15 MG TABLET PO SCH ×2 (09:52→20:46)
[2017-07-15] MEDS ORDERED: *HR* Insulin Regular U-500 500 UNIT/ML SQ ONE ×2 (11:00→18:45)
[2017-07-15] MEDS: *HR* Insulin Regular U-500 500 UNIT/ML SQ SCH ×2 (13:47→17:17)
--- NOTE | 2017-07-15 16:01 | Event Note ---
Date of Encounter: 07/15/17 Time of Encounter: 16:00 Disregard addendum placed for progress note from 07/14/17 as it was placed by mistake.
[2017-07-15] MEDS: Fluconazole 100 MG TABLET PO SCH (17:47)
[2017-07-15] MEDS: Nystatin Cream 15 GM TUBE TP SCH ×2 (17:47→20:52)
[2017-07-15] MEDS ORDERED: *HR* Warfarin 7.5 MG TABLET PO ONE (18:00)
[2017-07-15] MEDS: Levalbuterol Neb 1.25 MG/3 ML IH PRN (23:31)
[2017-07-16] MEDS ORDERED: *HR* Dextrose 50 % in Water (Syg) 50 ML SYRINGE ONE (05:17)
[2017-07-16] MEDS: *HR* Dextrose 50 % in Water (Syg) 50 ML SYRINGE IVP PRN ×2 (06:26→17:40)
[2017-07-16] MEDS: D5% in Water 1,000 ML IVC PRN (06:29)
--- NOTE | 2017-07-16 06:44 | Event Note ---
Date of Encounter: 07/16/17 Time of Encounter: 05:30 Rapid response called to the patient's room. The patient had gotten out of bed with his BiPAP on and had fallen to his left landing on his left shoulder. Patient was minimally responsive. Sitting up with his back to the bed upon my arrival. Blood glucose was found to be 18. IV access was obtained in his right AC. He was given an amp of D50 and he woke up and responding to questions. He immediately began asking for Mountain Dew. He does report that he has some head pain, but was unsure if he hit his head or not. He is also noted to have a bruise on his left shoulder. Once he was more alert several staff members assisted him to stand up and get back into bed. He was then given some soda pop after he got up in bed. He started on a D5 drip 100 ml/h, with accuchecks every hour. We will continue to drip to obtain a blood glucose between 150-200. CT of the head and cervical spine have been ordered, and an x- ray of the left shoulder. This is now third time that his blood glucose has dropped at night. He will need further management decision making of his U500 insulin.
[2017-07-16] MEDS ORDERED: *HR* Insulin Regular U-500 500 UNIT/ML SQ ONE (08:21)
[2017-07-16] MEDS: Sennosides/Docusate Sodium TABLET PO SCH ×2 (08:52→20:17)
[2017-07-16] MEDS: *HR* OxyCODONE Immed Rel 15 MG TABLET PO SCH ×2 (08:52→20:17)
[2017-07-16] MEDS: Metoprolol XL (24 HR) Succ 50 MG TAB.ER.24H PO SCH ×2 (08:52→20:18)
[2017-07-16] MEDS: Furosemide 40 MG TABLET PO SCH ×2 (08:52→18:56)
[2017-07-16] MEDS: Fluconazole 100 MG TABLET PO SCH (08:52)
[2017-07-16] MEDS: Aspirin Enteric Coated 81 MG Tablet PO SCH (08:52)
[2017-07-16] MEDS: Bisacodyl 10 MG RECTAL SUPPOSITORY RC SCH (08:56)
--- NOTE | 2017-07-16 09:03 | Internal Med Progress Note ---
<LaronKenny frank - Last Filed: 07/16/17 09:02> Date of Encounter: 07/16/17 Time of Encounter: 09:02 - Assessment and plan (1) Atrial fibrillation with RVR Current Visit: Yes Status: Acute Assessment and plan: -New onset atrial flutter/fibrillation with RVR (HRs in 130s) -TTE with EF 20%, moderately dilated left atrium and hypokinestic wall motion -Initially managed with Cardizem gtt however this was weaned with newly found systolic dysfunction -BB uptitrated per cardiology with improvement in heart rate -Currently on Toprol 75 mg twice a day. -Consider amiodarone or digoxin. -Avoid calcium channel blockers due to ejection fraction 20-25%. -DCCV contraindicated due to apical thrombus. -Continue Coumadin with heparin gtt -Lovenox 160 mg SQ Q12 -Lopressor 5 mg IV every 6 when necessary -Metoprolol XL 100 mg by mouth twice a day (2) CHF (congestive heart failure) Current Visit: Yes Status: Acute Assessment and plan: Echocardiogram was performed on 07/07/17; demonstrated the following: -LVEF 20-25%. -Moderately dilated left ventricle. -Severe global left ventricular systolic dysfunction with regional variations. -Small echodensity along the apical septal/apical inferior segments of the LV suggestive of thrombus Has allergy to TIERNEY and coreg -Strict I and O's, fluid restriction, low NA diet, daily weight -Lasix 40 mg by mouth twice a day Qualifiers: Heart failure type: systolic Heart failure chronicity: acute Qualified Code(s): I50.21 - Acute systolic (congestive) heart failure (3) CAD (coronary artery disease) Current Visit: Yes Status: Chronic Assessment and plan: -07/07/2017 C showed mid LAD 40%, distal circumflex 40%, OM1 40% lesions -Previous stents to proximal LAD patent -Patient reports allergy to prasugel, Plavix -ASA 81 mg by mouth daily -Lipitor 80 mg by mouth at bedtime -Metoprolol XL 75 mg by mouth twice a day Qualifiers: Coronary Disease-Associated Artery/Lesion type: [place] artery [place] vs. transplanted heart: [place] heart Associated angina: angina presence unspecified Qualified Code(s): I25.10 - Atherosclerotic heart disease of [place] coronary artery without angina pectoris (4) Left ventricular apical thrombus Current Visit: Yes Status: Resolved Assessment and plan: -TTE with Definity showed small echodensity of the apical/septal and apical/ inferior LV suggestive of thrombus -Lovenox 160 mg SQ Q12 (5) Constipation due to opioid therapy Current Visit: Yes Status: Acute Assessment and plan: -Takes oxycodone at home for chronic back pain -Presented with 5 days of constipation -KUB mild to moderate stool volume -Now having BMs -Continue aggressive bowel regimen (6) Diabetes Current Visit: Yes Status: Chronic Assessment and plan: -per hx. Uncontrolled, Hgb A1c 10.4% -Suspect secondary to dietary noncompliance -Sliding scale insulin Qualifiers: Diabetes mellitus type: type 2 Diabetes mellitus ocean [employer] intermediary insulin use: unspecified [facility] insulin use status Diabetes mellitus complication status : with unspecified complications Qualified Code(s): E11.8 - Type 2 diabetes mellitus with unspecified complications (7) Constipation Current Visit: Yes Status: Acute Assessment and plan: -Takes oxycodone at home for chronic back pain -Presented with 5 days of constipation -KUB mild to moderate stool volume -Now having BMs -Continue aggressive bowel regimen Qualifiers: Qualified Code(s): K59.00 - Constipation, unspecified (8) Blister of foot Current Visit: Yes Status: Acute Assessment and plan: Possibly 2/2 fungal infection -fluconazole -nystatin -fluid CX Qualifiers: Qualified Code(s): S90.829A - Blister (nonthermal), unspecified foot, initial encounter (9) DVT prophylaxis Current Visit: Yes Status: Acute Assessment and plan: Lovenox - Subjective Interval history: Patient was seen and examined at bedside this morning. Patient reports no change in symptoms compared to last week. Still has significant pedal edema. States that he is producing urine well. Denies having any shortness of breath. Blisters on feet appear to be worsening. - Constitutional Vitals: Temp Pulse Resp BP Pulse Ox 98 F 99 16 120/85 99 07/16/17 07:13 07/16/17 07:13 07/16/17 07:13 07/16/17 07:13 07/16/17 07:13 General appearance: Present: A&O X 3, morbidly obese, no acute distress, answers questions appropriately - Head Head exam: Present: atraumatic, normocephalic - Eye Eye exam: Present: PERRL, conjuntiva pink, sclera anicteric Pupils: Present: PERRL - Neck Neck exam general surgery: Present: supple, trachea midline. Absent: lymphadenopathy - Respiratory Respiratory exam: Present: CTAB. Absent: accessory muscle use, rales, rhonchi, wheezes - Cardiovascular Cardiovascular exam: Present: RRR, +S1, +S2. Absent: diastolic murmur, gallop, rubs, systolic murmur - GI/Abdominal GI/Abdominal exam: Present: normal bowel sounds, soft, no peritoneal signs. Absent: distended, tenderness - Extremities Exam Extremities exam: Present: warm, radial pulses palpable and symmetrical. Absent : calf tenderness, cyanotic, pedal edema - Neurological Exam Neurological exam: Present: CN II-XII intact, oriented X3, no focal deficits. Absent: pronater drift, facial droop, speech deficit - Skin Skin exam: Present: dry, intact Internal Medicine: Result - Labs CBC & Chem 7: 07/15/17 07:04 07/15/17 07:04 - ABG Interpretation ABG results: PT/INR, D-dimer PT 23.3 Seconds (9.4-12.1) H 07/15/17 07:04 - Impressions Impressions Shoulder X-Ray 07/16/17 05:55 IMPRESSION: 1. No acute osseous abnormality identified of the left shoulder. 2. Degenerative changes. 3. There appears to be a high-riding humeral head, which can be seen with chronic rotator cuff tear. D/ / Juno Ferrer MD / Juno Ferrer MD Interpreting Provider: Juno Ferrer MD Head CT 07/16/17 05:57 IMPRESSION: 1. No acute intracranial abnormality. 2. Bilateral mastoid effusions. D/ / Juno Ferrer MD / Juno Ferrer MD Interpreting Provider: Juno Ferrer MD Cervical Spine CT 07/16/17 06:45 IMPRESSION: 1. Examination is limited due to patient motion as well as beam attenuation. 2. No convincing evidence of an acutely displaced fracture of the cervical spine. 3. Degenerative changes of the cervical spine as well as ossification of the posterior longitudinal ligament. D/ / Juno Ferrer MD / Juno Ferrer MD Interpreting Provider: Juno Ferrer MD Consult Discharge Plan - Plan [facility]errals: [facility] Care Provider[facility] - <Josue Cooley H - Last Filed: 07/16/17 13:05> Date of Encounter: 07/16/17 - Constitutional Vitals: Temp Pulse Resp BP Pulse Ox 97.4 F L 77 16 106/74 99 07/16/17 10:59 07/16/17 10:59 07/16/17 10:59 07/16/17 10:59 07/16/17 10:59 Internal Medicine: Result - Labs CBC & Chem 7: 07/15/17 07:04 07/15/17 07:04 - ABG Interpretation ABG results: PT/INR, D-dimer PT 23.3 Seconds (9.4-12.1) H 07/15/17 07:04 - Impressions Impressions Shoulder X-Ray 07/16/17 05:55 IMPRESSION: 1. No acute osseous abnormality identified of the left shoulder. 2. Degenerative changes. 3. There appears to be a high-riding humeral head, which can be seen with chronic rotator cuff tear. D/ / Juno Ferrer MD / Juno Ferrer MD Interpreting Provider: Juno Ferrer MD Head CT 07/16/17 05:57 IMPRESSION: 1. No acute intracranial abnormality. 2. Bilateral mastoid effusions. D/ / Juno Ferrer MD / Juno Ferrer MD Interpreting Provider: Juno Ferrer MD Cervical Spine CT 07/16/17 06:45 IMPRESSION: 1. Examination is limited due to patient motion as well as beam attenuation. 2. No convincing evidence of an acutely displaced fracture of the cervical spine. 3. Degenerative changes of the cervical spine as well as ossification of the posterior longitudinal ligament. D/ / Juno Ferrer MD / Juno Ferrer MD Interpreting Provider: Juno Ferrer MD - Attending Attestation Bilateral lower extremity fungal infection Blisters stopped progressive consider possible necrobiosis lipoidica diabetucorum vs epidermolysis bullosa simplex vs warfarin induced skin necrosis (unlikely) consider dermatology consult if not improving fluconazole and nystatin cream day #2 bacterial and fungal cultures I examined this patient and my medical decision-making was reviewed with the Resident Physician. I agree with the documented findings, disposition and treatment plan as described except to the extent set forth below.
[2017-07-16] MEDS ORDERED: *HR* Insulin Regular U-500 500 UNIT/ML SQ STA (12:00)
[2017-07-16] MEDS: DEXTROAMPHETAMINE SULFATE 10 MG PO SCH (12:20)
[2017-07-16] MEDS: Nystatin Cream 15 GM TUBE TP SCH ×2 (13:03→22:41)
[2017-07-16] MEDS: Silver Sulfadiazine 50 GM TUBE TP SCH (13:03)
[2017-07-16 13:10] LABS: Basophils # 0.1 K/mcL (0.0-0.2); Basophils % 0.9 %; Eosinophils # 0.2 K/mcL (0.0-0.6); Eosinophils % 1.7 %; Hematocrit 44.1 % (37.5-50.1); Hemoglobin 14.2 g/dL (12.9-16.9); Immature Granulocytes % 0.3 % (0-4); Immature Platelets 2.5 % (1.1-6.1); Lymphocytes # 1.4 K/mcL (0.6-4.6); Lymphocytes % 15.4 %; Mean Corpuscular HGB Conc 32.2 g/dL (31.6-35.5); Mean Corpuscular Hemoglobin 29.2 pg (28.0-33.3); Mean Corpuscular Volume 90.7 fL (83.0-100.0); Mean Platelet Volume 9.8 fL (9.4-12.4); Monocytes # 0.9 K/mcL (0.0-1.3); Monocytes % 9.5 %; Neutrophils # 6.5 K/mcL (1.6-8.9); Platelet Count 267 K/mcL (140-400); Red Blood Count 4.86 M/mcL (4.19-5.50); Red Cell Distribution Width 14.3 % (11.5-14.5); Segmented Neutrophils % 72.2 %
[2017-07-16 13:20] LABS: INR 1.9
[2017-07-16 14:08] LABS: BUN/Creatinine Ratio 20 (6-26); Blood Urea Nitrogen 28 mg/dL (6-20); Calcium 9.6 mg/dL (8.6-10.3); Carbon Dioxide 27 mEq/L (23-29); Chloride 99 mEq/L (98-107); Glucose 184 mg/dL (70-105); Osmolality,Calculated 288 (280-300); Potassium 4.4 mEq/L (3.5-5.1); Sodium 134 mEq/L (136-145); eGFR For African Americans > 60 (> 60); eGFR For Non-African Americans 53 (> 60)
[2017-07-16] MEDS: *HR* Insulin Regular U-500 500 UNIT/ML SQ SCH ×2 (14:52→18:50)
[2017-07-16] MEDS: Levalbuterol Neb 1.25 MG/3 ML IH PRN (15:04)
[2017-07-16] MEDS ORDERED: Insulin LISPRO 300 UNITS/3 ML VIAL SQ SCH (16:30)
[2017-07-16] MEDS ORDERED: *HR* Warfarin 7.5 MG TABLET PO SCH (18:00)
[2017-07-16] MEDS: *HR* Enoxaparin 80 MG/0.8 ML SYRINGE SQ SCH (18:57)
[2017-07-17 06:50] LABS: Basophils # 0.1 K/mcL (0.0-0.2); Basophils % 0.9 %; Eosinophils # 0.5 K/mcL (0.0-0.6); Eosinophils % 5.7 %; Hematocrit 39.8 % (37.5-50.1); Hemoglobin 12.7 g/dL (12.9-16.9); Immature Granulocytes % 0.3 % (0-4); Lymphocytes % 22.7 %; Mean Corpuscular HGB Conc 31.9 g/dL (31.6-35.5); Mean Corpuscular Hemoglobin 28.7 pg (28.0-33.3); Mean Corpuscular Volume 89.8 fL (83.0-100.0); Mean Platelet Volume 9.8 fL (9.4-12.4); Monocytes # 0.8 K/mcL (0.0-1.3); Monocytes % 8.4 %; Neutrophils # 5.5 K/mcL (1.6-8.9); Nucleated Red Blood Cells 0.4 /100 WBC (0); Platelet Count 243 K/mcL (140-400); Red Blood Count 4.43 M/mcL (4.19-5.50); Red Cell Distribution Width 14.4 % (11.5-14.5)
[2017-07-17 06:53] LABS: INR 2.4; Prothrombin Time 25.8 Seconds (9.4-12.1)
[2017-07-17 06:56] LABS: BUN/Creatinine Ratio 19 (6-26); Blood Urea Nitrogen 27 mg/dL (6-20); Calcium 9.4 mg/dL (8.6-10.3); Carbon Dioxide 27 mEq/L (23-29); Chloride 101 mEq/L (98-107); Glucose 153 mg/dL (70-105); Osmolality,Calculated 284 (280-300); Sodium 133 mEq/L (136-145); eGFR For African Americans > 60 (> 60); eGFR For Non-African Americans 51 (> 60)
[2017-07-17] MEDS: Fluconazole 100 MG TABLET PO SCH (08:39)
[2017-07-17] MEDS: Aspirin Enteric Coated 81 MG Tablet PO SCH (08:39)
[2017-07-17] MEDS: *HR* OxyCODONE Immed Rel 15 MG TABLET PO SCH (08:39)
[2017-07-17] MEDS: Sennosides/Docusate Sodium TABLET PO SCH (08:40)
[2017-07-17] MEDS: Metoprolol XL (24 HR) Succ 50 MG TAB.ER.24H PO SCH (08:40)
[2017-07-17] MEDS: Bisacodyl 10 MG RECTAL SUPPOSITORY RC SCH (08:41)
[2017-07-17] MEDS: Furosemide 40 MG TABLET PO SCH (08:41)
[2017-07-17] MEDS ORDERED: Insulin LISPRO 300 UNITS/3 ML VIAL SQ SCH (08:42)
--- NOTE | 2017-07-17 09:35 | Discharge Summary ---
<Kenny Larry - Last Filed: 07/17/17 10:02> Orders not resulted at time of discharge: Pending orders 07/15/17 15:08 Culture,Wound [RM] Stat Fungal Culture,Skin [MYC] Stat 07/16/17 17:18 ECG 12 lead ECG [ECG] Stat 07/18/17 04:00 PT/INR [Prothrombin Time INR] [COAG] AM 0400 07/19/17 04:00 PT/INR [Prothrombin Time INR] [COAG] AM 0400 07/20/17 04:00 PT/INR [Prothrombin Time INR] [COAG] AM 0400 07/21/17 04:00 PT/INR [Prothrombin Time INR] [COAG] AM 0400 Date of Encounter: 07/17/17 Time of Encounter: 09:30 - Discharge Diagnosis (1) Atrial fibrillation with RVR Priority: Primary Status: Acute (2) CHF (congestive heart failure) Priority: Secondary Status: Acute Qualifiers: Heart failure type: systolic Heart failure chronicity: acute Qualified Code(s): I50.21 - Acute systolic (congestive) heart failure (3) CAD (coronary artery disease) Priority: Secondary Status: Chronic Qualifiers: Coronary Disease-Associated Artery/Lesion type: [place] artery [place] vs. 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 Madera is a 56 year old male who was admitted on 07/08 for atrial flutter with RVR. New-onset. ECHO demonstrated EF 20-25%. This was new for him. He was found found to have an apical thrombus. Per the recommendsations of cardiology, patient was placed on heparin and coumadin. Goal INR is 2-3. He had a cardiac cath, which demonstrated nonobstructive CAD. Patient had significant fluid buildup, with significant pedal edema. He was diuresed on lasix. There was an episode on 07/14 in which patients blood glucose was very low at 27; associated with decreased alertness and diaphoresis. He did not have IV access. He was somnolent, arousable for brief periods. He was given glucagon and blood glucose improved at 33. He was also given dextrose gel and mentation began to improve. When IV access was obtained, he was given D50; started on D5 in water at 100 mils per hour. Also given orange juice. His evening dose of U500 was stopped. Per cardiology recommendations, patient was switched from the heparin drip to Lovenox 160 mg SQ Q12. Patient developed blisters on feet; possible fungal cause. He will be sent home on 4 weeks of fluconazole, 6 weeks of topical nystatin, and clindamycin 600 mg TID for 7 days if his condition worsens. - Time Spent with Patient Total time spent providing and/or coordinating discharge services: Greater than 30 minutes (42 minutes) - Discharge Medications Prescriptions: Atorvastatin Calcium [Lipitor] 80 mg PO HS #30 tab Clindamycin [Cleocin] 600 mg IM TID #21 vial Fluconazole [Diflucan] 200 mg PO DAILY #28 tab Furosemide Oral Soln [Lasix] 40 mg PO BID #60 mls Metoprolol XL (24 HR) Succ [Toprol XL] 100 mg PO BID #60 tab.er.24h Nystatin Cream [Mycostatin Cream] 1 appl TP TID 42 Days #1 tube Warfarin [Coumadin] 7.5 mg PO DAILY #30 tablet Home Medications: Aspirin Enteric Coated [Aspirin EC] 81 mg PO DAILY 07/04/17 [History] Dextroamphetamine Sulfate [Dexedrine] 10 mg PO QAM 07/04/17 [History] Insulin ASPART [NovoLOG] 0 unit SQ TIDAC 07/04/17 [History] Insulin Regular U-500 [HumuLIN R U-500] 150 - 220 unit SQ QAM 07/04/17 [History ] Insulin Regular U-500 [HumuLIN R U-500] 150 - 230 unit SQ 1200 07/04/17 [ History] Insulin Regular U-500 [HumuLIN R U-500] 160 - 260 unit SQ QPM 07/04/17 [History ] Ketotifen Fumarate [Zaditor] 1 drop OP BID PRN 07/04/17 [History] Naproxen [Naprosyn] 500 mg PO BID 07/04/17 [History] OxyCODONE Immed Rel [Roxicodone 10 MG] 30 mg PO BID 07/04/17 [History] Polyethylene Glycol 3350 [MiraLAX] 17 gm PO HS PRN 07/04/17 [History] Propylene Glycol/Peg 400 [Systane 0.3-0.4% Eye Drops] 1 drop BOTH EYES BID PRN 07/04/17 [History] amLODIPine [Norvasc] 5 mg PO DAILY 07/04/17 [History] Atorvastatin Calcium [Lipitor] 80 mg PO HS #30 tab 07/17/17 [Rx] Clindamycin [Cleocin] 600 mg IM TID #21 vial 07/17/17 [Rx] Fluconazole [Diflucan] 200 mg PO DAILY #28 tab 07/17/17 [Rx] Furosemide Oral Soln [Lasix] 40 mg PO BID #60 mls 07/17/17 [Rx] Metoprolol XL (24 HR) Succ [Toprol XL] 100 mg PO BID #60 tab.er.24h 07/17/17 [Rx ] Nystatin Cream [Mycostatin Cream] 1 appl TP TID 42 Days #1 tube 07/17/17 [Rx] Warfarin [Coumadin] 7.5 mg PO DAILY #30 tablet 07/17/17 [Rx] Allergies/Adverse Reactions: 3 Allergy/AdvReac Type Severity Reaction Status Date / Time aspartame Allergy See Verified 07/04/17 16:02 Comments carvedilol [From Coreg] Allergy See Verified 07/04/17 16:02 Comments hydrochlorothiazide Allergy See Verified 07/04/17 16:02 Comments losartan [From Cozaar] Allergy See Verified 07/04/17 16:02 Comments peanut Allergy See Verified 07/04/17 16:02 Comments prasugrel [From Effient] Allergy See Verified 07/04/17 16:02 Comments ramipril Allergy See Verified 07/04/17 16:02 Comments sucralose Allergy See Verified 07/04/17 16:02 Comments sweet n low Allergy See Uncoded 07/04/17 16:02 Comments Date of admission: 07/04/17 17:26 [facility] Consults: 07/04/17 19:58 Consult to Diabetes Education [CONS] Routine Comment: Reason for Consult: Pts. diabetes is not well-controlled and BG usually ranges between 300-400. 07/06/17 07:45 Consult to Cardiac Rehabilitation-Phase1 [CONS] Routine Comment: Reason for Consult: cmp, elevated trop Call Completed: No 07/07/17 14:58 Consult to Nurse Navigator [CONS] Routine Comment: New CHF/EF 20% 07/12/17 08:41 Consult to Occupational Therapy [CONS] Routine Comment: Evaluate, develop and implement POC Reason for Consult: Assess patient strength Does patient have active BEDREST order?: No Is patient medically & hemodynamically stable?: Yes Consult to Physical Therapy [CONS] Routine Comment: Evaluate, develop and implement POC Reason for Consult: Assess patient strength Does patient have active BEDREST order?: No Is patient medically & hemodynamically stable?: Yes Patient assessed for mobility or mobilized this visit?: No 07/14/17 09:24 Consult to Wound Care [CONS] Routine Reason for Consult: open blisters on both feet and he is a diabetic Time Notified: 09:26 Call Completed: Yes Discharging clinician: Kenny Larry Anticipated date of discharge: 07/17/17 - Constitutional Vitals: Temp Pulse Resp BP Pulse Ox 97.3 F L 110 18 102/87 94 07/17/17 07:12 07/17/17 07:12 07/17/17 07:12 07/17/17 07:12 07/17/17 07:12 General appearance: Present: A&O X 3, morbidly obese, no acute distress, answers questions appropriately - Head Head exam: Present: atraumatic, normocephalic - Eye Eye exam: Present: PERRL, conjuntiva pink, sclera anicteric Pupils: Present: PERRL - Neck Neck exam general surgery: Present: supple, trachea midline. Absent: lymphadenopathy - Respiratory Respiratory exam: Present: CTAB. Absent: accessory muscle use, rales, rhonchi, wheezes - Cardiovascular Cardiovascular exam: Present: RRR, +S1, +S2. Absent: diastolic murmur, gallop, rubs, systolic murmur - Extremities Exam Extremities exam: Present: pedal edema, warm. Absent: calf tenderness, cyanotic - Neurological Exam Neurological exam: Present: CN II-XII intact, oriented X3, no focal deficits. Absent: pronater drift, facial droop, speech deficit - Skin Skin exam: Present: dry Additional comments: Patient has blisters on his feet; improved from yesterday - Patient Status Disposition: Home, Self-Care Condition: Fair Overall status at discharge: patient is progressing back to baseline - Discharge Instructions Instructions: Metoprolol (By mouth), Furosemide (By mouth), Warfarin (By mouth) , Nystatin (On the skin), Fluconazole (By mouth), Atorvastatin (By mouth), Heart Failure (DC), Atrial Fibrillation (DC), Diabetes Mellitus Type 2 in Adults (DC), Chronic Obstructive Pulmonary Disease (DC), Chronic Hypertension ( DC), Pneumonia (DC) Follow [facility]: [facility] Care Provider[facility] - 07/24/17 10:15 am - Diet and Activity Activity: increase activity as tolerated Diet: advance to your usual diet <Josue Cooley H - Last Filed: 07/17/17 11:54> Orders not resulted at time of discharge: Pending orders 07/15/17 15:08 Culture,Wound [RM] Stat Fungal Culture,Skin [MYC] Stat 07/18/17 04:00 PT/INR [Prothrombin Time INR] [COAG] AM 0400 07/19/17 04:00 PT/INR [Prothrombin Time INR] [COAG] AM 0400 07/20/17 04:00 PT/INR [Prothrombin Time INR] [COAG] AM 0400 07/21/17 04:00 PT/INR [Prothrombin Time INR] [COAG] AM 0400 Date of Encounter: 07/17/17 Hospital course: Mr. Madera is a 56 year old male - Time Spent with Patient Total time spent providing and/or coordinating discharge services: Date of admission: 07/04/17 17:26 [facility] physician: [facility] Consults: 07/04/17 19:58 Consult to Diabetes Education [CONS] Routine Comment: Reason for Consult: Pts. diabetes is not well-controlled and BG usually ranges between 300-400. 07/06/17 07:45 Consult to Cardiac Rehabilitation-Phase1 [CONS] Routine Comment: Reason for Consult: cmp, elevated trop Call Completed: No 07/07/17 14:58 Consult to Nurse Navigator [CONS] Routine Comment: New CHF/EF 20% 07/12/17 08:41 Consult to Occupational Therapy [CONS] Routine Comment: Evaluate, develop and implement POC Reason for Consult: Assess patient strength Does patient have active BEDREST order?: No Is patient medically & hemodynamically stable?: Yes Consult to Physical Therapy [CONS] Routine Comment: Evaluate, develop and implement POC Reason for Consult: Assess patient strength Does patient have active BEDREST order?: No Is patient medically & hemodynamically stable?: Yes Patient assessed for mobility or mobilized this visit?: No 07/14/17 09:24 Consult to Wound Care [CONS] Routine Reason for Consult: open blisters on both feet and he is a diabetic Time Notified: 09:26 Call Completed: Yes - Constitutional Vitals: Temp Pulse Resp BP Pulse Ox 98.5 F 100 17 108/89 96 07/17/17 11:04 07/17/17 11:04 07/17/17 11:04 07/17/17 11:04 07/17/17 11:04 - Attending Attestation Bilateral lower extremity fungal infection Blisters stopped progressing May follow-up with dermatology if the following diagnosis would be considered: 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 I agree with the documented findings, disposition and treatment plan as described except to the extent set forth below.
[2017-07-17] MEDS: *HR* Insulin Regular U-500 500 UNIT/ML SQ SCH (09:52)
[2017-07-17] MEDS: *HR* Enoxaparin 80 MG/0.8 ML SYRINGE SQ SCH (09:59)
[2017-07-17 11:07] VITALS: BP 108/89
[2017-07-17] MEDS: DEXTROAMPHETAMINE SULFATE 10 MG PO SCH (11:11)
--- NOTE | 2017-07-17 13:20 | Physician Discharge Referral ---
Home Health/Hosp Referral Info Transfer to: Home Health Provider in Charge Post Discharge: PCP - Diagnosis (1) Atrial fibrillation with RVR Priority: Primary (Continue warfarin 7.5 mg daily, prescription provided, apical thrombus) Status: Acute (2) CHF (congestive heart failure) Priority: Secondary Status: Acute (3) CAD (coronary artery disease) Priority: Secondary Status: Chronic (4) Left ventricular apical thrombus Priority: Secondary Status: Resolved (5) Constipation due to opioid therapy Priority: Secondary Status: Acute (6) Diabetes Priority: Secondary Status: Chronic (7) Constipation Priority: Secondary Status: Acute (8) Blister of foot Priority: Secondary Status: Acute (9) DVT prophylaxis Priority: Secondary Status: Acute - Respiratory Orders Smoking Cessation: Smoking cessation has been advised. For more information, call the [place] [employer] Quit Line at 4-248-GJPH-NOW. - Transfer Medications Prescriptions: Atorvastatin Calcium [Lipitor] 80 mg PO HS #30 tab Clindamycin [Cleocin] 600 mg PO TID 7 Days #21 capsule Fluconazole [Diflucan] 200 mg PO DAILY #28 tab Furosemide Oral Soln [Lasix] 40 mg PO BID #60 mls Metoprolol XL (24 HR) Succ [Toprol XL] 100 mg PO BID #60 tab.er.24h Nystatin Cream [Mycostatin Cream] 1 appl TP TID 42 Days #1 tube Warfarin [Coumadin] 7.5 mg PO DAILY #30 tablet Home Medications: Aspirin Enteric Coated [Aspirin EC] 81 mg PO DAILY 07/04/17 [History] Dextroamphetamine Sulfate [Dexedrine] 10 mg PO QAM 07/04/17 [History] Insulin ASPART [NovoLOG] 0 unit SQ TIDAC 07/04/17 [History] Insulin Regular U-500 [HumuLIN R U-500] 150 - 220 unit SQ QAM 07/04/17 [History ] Insulin Regular U-500 [HumuLIN R U-500] 150 - 230 unit SQ 1200 07/04/17 [ History] Insulin Regular U-500 [HumuLIN R U-500] 160 - 260 unit SQ QPM 07/04/17 [History ] Ketotifen Fumarate [Zaditor] 1 drop OP BID PRN 07/04/17 [History] Naproxen [Naprosyn] 500 mg PO BID 07/04/17 [History] OxyCODONE Immed Rel [Roxicodone 10 MG] 30 mg PO BID 07/04/17 [History] Polyethylene Glycol 3350 [MiraLAX] 17 gm PO HS PRN 07/04/17 [History] Propylene Glycol/Peg 400 [Systane 0.3-0.4% Eye Drops] 1 drop BOTH EYES BID PRN 07/04/17 [History] amLODIPine [Norvasc] 5 mg PO DAILY 07/04/17 [History] Atorvastatin Calcium [Lipitor] 80 mg PO HS #30 tab 07/17/17 [Rx] Clindamycin [Cleocin] 600 mg PO TID 7 Days #21 capsule 07/17/17 [Rx] Fluconazole [Diflucan] 200 mg PO DAILY #28 tab 07/17/17 [Rx] Furosemide Oral Soln [Lasix] 40 mg PO BID #60 mls 07/17/17 [Rx] Metoprolol XL (24 HR) Succ [Toprol XL] 100 mg PO BID #60 tab.er.24h 07/17/17 [Rx ] Nystatin Cream [Mycostatin Cream] 1 appl TP TID 42 Days #1 tube 07/17/17 [Rx] Warfarin [Coumadin] 7.5 mg PO DAILY #30 tablet 07/17/17 [Rx] Allergies/Adverse Reactions: 3 Allergy/AdvReac Type Severity Reaction Status Date / Time aspartame Allergy See Verified 07/04/17 16:02 Comments carvedilol [From Coreg] Allergy See Verified 07/04/17 16:02 Comments hydrochlorothiazide Allergy See Verified 07/04/17 16:02 Comments losartan [From Cozaar] Allergy See Verified 07/04/17 16:02 Comments peanut Allergy See Verified 07/04/17 16:02 Comments prasugrel [From Effient] Allergy See Verified 07/04/17 16:02 Comments ramipril Allergy See Verified 07/04/17 16:02 Comments sucralose Allergy See Verified 07/04/17 16:02 Comments sweet n low Allergy See Uncoded 07/04/17 16:02 Comments Certification: Further, I certify that my clinical findings support that this patient is homebound (i.e. absences from home require considerable and taxing effort and are for medical reasons or [employer] services or infrequently or short duration when for other reasons) because: Homebound Reason: Patient requires assistance of a person or device to safely leave home Attestation: My signature below is to certify that this patient is under my care and that I, or nurse practitioner, or a physician's assistant administrator working with me, has a face-to -face encounter with this patient.
--- NOTE | 2017-07-17 16:45 | Electrocardiograph Report ---
[address] [place] [address] Test Date: 2017-07-16 Pat Name: Jef Madera Department: 111 Room: 2NE28 Gender: M Adolescent Specialist: DYANA : 1960 Requested By: John Barrientos Order Number: [id number] Reading MD: Al De La Cruz Measurements Intervals [place] Rate: 115 P: [place]: 0 QRS: 1 QRSD: 94 T: 124 QT: 332 QTc: 400 Interpretive Statements ATRIAL FIBRILLATION WITH RAPID VENTRICULAR RESPONSE POSSIBLE ANTERIOR MYOCARDIAL INFARCTION, OF INDETERMINATE AGE Electronically Signed On 07-17-2017 16:43:40 EDT by Al De La Cruz
[2017-07-17] MEDS ORDERED: *HR* Warfarin 4 MG TABLET PO ONE (17:00)
== END 2017-07-17 16:26 | disposition home or self-care (01) | DRG 286 ==
LOC: EMEROO 15:15 → 2NENU 15:15
PROVIDERS: ADMIT Nurse Practitioner Family; ATTEND Family Medicine

== ENCOUNTER 2020-12-25 14:33 | Inpatient (IN) ==
[2020-12-25] MEDS ORDERED: Ondansetron 4 MG/2 ML VIAL IVP PRN (17:48)
[2020-12-25] MEDS ORDERED: Naloxone 0.4 MG/ML INJ IVP PRN (17:48)
[2020-12-25] MEDS ORDERED: Dextrose Gel 15 GM/37.5 ML TUBE PO PRN ×2 (17:52)
[2020-12-25] MEDS ORDERED: *HR* Dextrose 50 % in Water (Vial) 50 ML VIAL IVP PRN (17:52)
[2020-12-25] MEDS ORDERED: D5% in Water 1,000 ML IVC PRN (17:52)
[2020-12-25 18:37] LABS: Basophils # 0.1 K/mcL (0.0-0.2); Basophils % 0.3 %; Eosinophils # 0.1 K/mcL (0.0-0.6); Eosinophils % 0.5 %; Hematocrit 38.5 % (37.5-50.1); Hemoglobin 12.6 g/dL (12.9-16.9); Immature Granulocytes % 0.7 % (0-4); Lymphocytes # 0.9 K/mcL (0.6-4.6); Lymphocytes % 4.8 %; Mean Corpuscular HGB Conc 32.7 g/dL (31.6-35.5); Mean Corpuscular Hemoglobin 29.6 pg (28.0-33.3); Mean Corpuscular Volume 90.6 fL (83.0-100.0); Mean Platelet Volume 9.2 fL (9.4-12.4); Monocytes # 0.8 K/mcL (0.0-1.3); Monocytes % 3.9 %; Neutrophils # 17.5 K/mcL (1.6-8.9); Platelet Count 347 K/mcL (140-400); Red Blood Count 4.25 M/mcL (4.19-5.50); Red Cell Distribution Width 12.7 % (11.5-14.5); Segmented Neutrophils % 89.8 %; White Blood Count 19.5 K/mcL (4.3-11.1)
[2020-12-25 18:54] LABS: BUN/Creatinine Ratio 10 (6-26); Blood Urea Nitrogen 9 mg/dL (6-20); Calcium 9.1 mg/dL (8.6-10.3); Carbon Dioxide 25 mEq/L (23-29); Chloride 92 mEq/L (98-107); Glucose 269 mg/dL (70-105); Osmolality,Calculated 278 (280-300); Potassium 3.6 mEq/L (3.5-5.1); Sodium 130 mEq/L (136-145); eGFR For African Americans > 60 (> 60); eGFR For Non-African Americans > 60 (> 60)
[2020-12-25] MEDS: Piperacillin/Tazobactam 3.375 GM in 0.9 % Sodium Chloride Mini Bag 100 ML IVPB SCH (19:39)
[2020-12-25] MEDS: 0.9 % Sodium Chloride 1,000 ML IVC SCH (19:39)
[2020-12-25] MEDS ORDERED: Insulin LISPRO 300 UNITS/3 ML VIAL SUBQ SCH ×2 (21:00)
[2020-12-25] MEDS ORDERED: Insulin DETEMIR 100 UNIT/ML X5UNITS SUBQ SCH (21:00)
[2020-12-26 02:17] LABS: Basophils % 0.2 %; Eosinophils # 0.1 K/mcL (0.0-0.6); Eosinophils % 0.8 %; Hematocrit 31.2 % (37.5-50.1); Immature Granulocytes % 0.7 % (0-4); Lymphocytes # 0.9 K/mcL (0.6-4.6); Lymphocytes % 5.6 %; Mean Corpuscular HGB Conc 33.7 g/dL (31.6-35.5); Mean Corpuscular Hemoglobin 30.3 pg (28.0-33.3); Mean Corpuscular Volume 89.9 fL (83.0-100.0); Mean Platelet Volume 9.3 fL (9.4-12.4); Monocytes # 0.6 K/mcL (0.0-1.3); Monocytes % 3.7 %; Neutrophils # 14.6 K/mcL (1.6-8.9); Platelet Count 291 K/mcL (140-400); Red Blood Count 3.47 M/mcL (4.19-5.50); Red Cell Distribution Width 12.9 % (11.5-14.5); White Blood Count 16.4 K/mcL (4.3-11.1)
[2020-12-26 02:26] LABS: INR 1.5; Prothrombin Time 17.1 Seconds (9.4-12.1)
[2020-12-26 02:28] LABS: Activated Partial Thrombo Time 27.6 Seconds (26.0-36.0)
[2020-12-26 02:31] LABS: BUN/Creatinine Ratio 13 (6-26); Blood Urea Nitrogen 11 mg/dL (6-20); Calcium 8.3 mg/dL (8.6-10.3); Carbon Dioxide 23 mEq/L (23-29); Chloride 95 mEq/L (98-107); Glucose 376 mg/dL (70-105); Osmolality,Calculated 277 (280-300); Potassium 3.5 mEq/L (3.5-5.1); Sodium 126 mEq/L (136-145); eGFR For African Americans > 60 (> 60); eGFR For Non-African Americans > 60 (> 60)
[2020-12-26 02:41] LABS: Hemoglobin 10.5 g/dL (12.9-16.9)
[2020-12-26] MEDS ORDERED: Piperacillin/Tazobactam 3.375 GM in 0.9 % Sodium Chloride Mini Bag 100 ML IVPB SCH (04:00)
[2020-12-26] MEDS: Piperacillin/Tazobactam 3.375 GM in 0.9 % Sodium Chloride Mini Bag 100 ML IVPB SCH ×3 (04:05→23:07)
[2020-12-26] MEDS: 0.9 % Sodium Chloride 1,000 ML IVC SCH (05:16)
[2020-12-26] MEDS ORDERED: Naloxone 0.4 MG/ML INJ IVP PRN ×4 (08:10→21:25)
[2020-12-26] MEDS ORDERED: D5% in Water 1,000 ML IVC PRN ×2 (08:10→21:25)
[2020-12-26] MEDS ORDERED: 0.9 % Sodium Chloride 1,000 ML IVC SCH (08:10)
[2020-12-26] MEDS ORDERED: Dextrose Gel 15 GM/37.5 ML TUBE PO PRN ×4 (08:10→21:25)
[2020-12-26] MEDS ORDERED: *HR* Dextrose 50 % in Water (Vial) 50 ML VIAL IVP PRN (08:10)
[2020-12-26] MEDS ORDERED: Ondansetron 4 MG/2 ML VIAL IVP PRN ×4 (08:10→21:25)
[2020-12-26] MEDS ORDERED: Insulin DETEMIR 100 UNIT/ML X5UNITS SUBQ SCH (09:00)
[2020-12-26] MEDS ORDERED: CeFAZolin 2,000 MG/120 ML BAG IVPB ONE ×2 (15:41→21:25)
[2020-12-26] MEDS ORDERED: Ropivacaine/PF 0.5% 30 ML VIAL ONE (16:04)
[2020-12-26] MEDS ORDERED: *HR* FentaNYL (PF) 100 MCG/2 ML VIAL ONE ×2 (16:05→18:00)
[2020-12-26] MEDS ORDERED: *HR* Propofol 200 MG/20 ML VIAL IVP ONE ×2 (16:05→17:59)
[2020-12-26] MEDS ORDERED: *HR* Midazolam HCl 2 MG/2 ML VIAL ONE (16:05)
[2020-12-26] MEDS ORDERED: *HR* HYDROmorphone PF 0.5 MG/0.5 ML SYRINGE IVP PRN ×2 (16:07→21:25)
[2020-12-26] MEDS ORDERED: *HR* Succinylcholine 200 MG/10 ML VIAL IVP ONE (16:09)
[2020-12-26] MEDS ORDERED: *HR* Rocuronium Bromide 50 MG/5 ML VIAL ONE (16:09)
[2020-12-26] MEDS ORDERED: Lidocaine HCL 4 ML Topical Solution (Laryng-O-Jet Kit Sterile Pak) TP ONE (16:09)
[2020-12-26] MEDS ORDERED: Lidocaine -MPF 2% 2 ML VIAL ONE (16:09)
[2020-12-26] MEDS ORDERED: Insulin LISPRO 300 UNITS/3 ML VIAL SUBQ SCH ×2 (16:30→21:00)
[2020-12-26] MEDS ORDERED: Ondansetron 4 MG/2 ML VIAL ONE (16:44)
[2020-12-26] MEDS ORDERED: *HR* Insulin Regular U-500 500 UNIT/ML SUBQ SCH ×2 (17:00→18:00)
[2020-12-26] MEDS ORDERED: Lidocaine Jelly 6ml 1 APPL/6 ML JEL.PF.APP ONE (17:19)
[2020-12-26] MEDS ORDERED: *HR* OxyCODONE ER (12 HR) 10 MG TABLET PO SCH (18:00)
[2020-12-26] MEDS ORDERED: Albuterol 2.5 MG/3 ML NEBULIZER IH PRN ×2 (19:15→21:25)
[2020-12-26] MEDS ORDERED: Nitroglycerin 0.4 MG TAB.SUBL SL PRN ×2 (19:15→21:25)
[2020-12-26] MEDS ORDERED: *HR* FentaNYL (PF) 100 MCG/2 ML VIAL IVP PRN ×2 (19:15→21:25)
[2020-12-26] MEDS: CeFAZolin 2 GM/120 ML BAG IVPB SCH (23:58)
[2020-12-27 04:50] LABS: Basophils % 0.2 %; Hematocrit 36.5 % (37.5-50.1); Immature Granulocytes % 1.1 % (0-4); Lymphocytes # 0.6 K/mcL (0.6-4.6); Lymphocytes % 4.4 %; Mean Corpuscular HGB Conc 33.4 g/dL (31.6-35.5); Mean Corpuscular Hemoglobin 30.2 pg (28.0-33.3); Mean Corpuscular Volume 90.3 fL (83.0-100.0); Mean Platelet Volume 9.6 fL (9.4-12.4); Monocytes # 0.3 K/mcL (0.0-1.3); Neutrophils # 12.5 K/mcL (1.6-8.9); Platelet Count 326 K/mcL (140-400); Red Blood Count 4.04 M/mcL (4.19-5.50); Red Cell Distribution Width 13.2 % (11.5-14.5); Segmented Neutrophils % 92.3 %; White Blood Count 13.6 K/mcL (4.3-11.1)
[2020-12-27 04:51] LABS: Hemoglobin 12.2 g/dL (12.9-16.9)
[2020-12-27] MEDS: *HR* OxyCODONE ER (12 HR) 10 MG TABLET PO SCH ×2 (06:16→17:22)
[2020-12-27] MEDS: Piperacillin/Tazobactam 3.375 GM in 0.9 % Sodium Chloride Mini Bag 100 ML IVPB SCH ×2 (06:18→14:34)
[2020-12-27] MEDS ORDERED: 0.9 % Sodium Chloride 500 ML IVC ONE (07:36)
[2020-12-27] MEDS ORDERED: Insulin Human Regular 10 UNIT in 0.9 % Sodium Chloride 10 ML IV ONE (07:36)
[2020-12-27] MEDS ORDERED: *HR* Insulin Regular U-500 500 UNIT/ML SUBQ SCH ×5 (08:00→18:00)
[2020-12-27] MEDS: Furosemide 40 MG TABLET PO SCH (08:04)
[2020-12-27] MEDS: Metoprolol XL (24 HR) Succ 50 MG TAB.ER.24H PO SCH (08:04)
[2020-12-27 08:15] LABS: BUN/Creatinine Ratio 14 (6-26); Blood Urea Nitrogen 15 mg/dL (6-20); Calcium 8.3 mg/dL (8.6-10.3); Carbon Dioxide 22 mEq/L (23-29); Chloride 92 mEq/L (98-107); Glucose 614 mg/dL (70-105); Osmolality,Calculated 287 (280-300); Potassium 4.5 mEq/L (3.5-5.1); Sodium 124 mEq/L (136-145); eGFR For African Americans > 60 (> 60); eGFR For Non-African Americans > 60 (> 60)
[2020-12-27] MEDS: CeFAZolin 2 GM/120 ML BAG IVPB SCH ×2 (08:37→16:25)
[2020-12-27] MEDS: *HR* Insulin Regular U-500 500 UNIT/ML SUBQ SCH ×2 (08:40→12:25)
[2020-12-27] MEDS ORDERED: Furosemide 40 MG TABLET PO SCH (09:00)
[2020-12-27] MEDS ORDERED: Metoprolol XL (24 HR) Succ 50 MG TAB.ER.24H PO SCH ×2 (09:00)
[2020-12-27] MEDS: Insulin LISPRO 300 UNITS/3 ML VIAL SUBQ SCH ×3 (09:42→17:23)
[2020-12-27 11:23] LABS: Estimated Average Glucose 283 mg/dl; Hemoglobin A1C 11.5 %
[2020-12-28] MEDS: Piperacillin/Tazobactam 3.375 GM in 0.9 % Sodium Chloride Mini Bag 100 ML IVPB SCH ×4 (01:00→23:04)
[2020-12-28 01:26] LABS: Basophils % 0.2 %; Eosinophils % 0.2 %; Hematocrit 31.2 % (37.5-50.1); Lymphocytes # 1.6 K/mcL (0.6-4.6); Lymphocytes % 11.4 %; Mean Corpuscular HGB Conc 33.7 g/dL (31.6-35.5); Mean Corpuscular Hemoglobin 30.6 pg (28.0-33.3); Mean Platelet Volume 9.5 fL (9.4-12.4); Monocytes # 0.6 K/mcL (0.0-1.3); Monocytes % 4.2 %; Neutrophils # 11.4 K/mcL (1.6-8.9); Platelet Count 346 K/mcL (140-400); Red Blood Count 3.43 M/mcL (4.19-5.50); Red Cell Distribution Width 12.9 % (11.5-14.5); White Blood Count 13.7 K/mcL (4.3-11.1)
[2020-12-28 01:28] LABS: Hemoglobin 10.5 g/dL (12.9-16.9)
[2020-12-28 01:47] LABS: BUN/Creatinine Ratio 19 (6-26); Blood Urea Nitrogen 19 mg/dL (6-20); Calcium 8.7 mg/dL (8.6-10.3); Carbon Dioxide 26 mEq/L (23-29); Chloride 98 mEq/L (98-107); Glucose 87 mg/dL (70-105); Osmolality,Calculated 274 (280-300); Potassium 3.4 mEq/L (3.5-5.1); Sodium 131 mEq/L (136-145); eGFR For African Americans > 60 (> 60); eGFR For Non-African Americans > 60 (> 60)
[2020-12-28] MEDS: *HR* OxyCODONE ER (12 HR) 10 MG TABLET PO SCH ×2 (05:43→18:04)
[2020-12-28] MEDS: *HR* Dextrose 50 % in Water (Vial) 50 ML VIAL IVP PRN ×2 (06:37→07:11)
[2020-12-28] MEDS: Metoprolol XL (24 HR) Succ 50 MG TAB.ER.24H PO SCH (07:08)
[2020-12-28] MEDS: Furosemide 40 MG TABLET PO SCH (08:01)
[2020-12-28] MEDS ORDERED: *HR* Insulin Regular U-500 500 UNIT/ML SUBQ SCH ×4 (09:00→17:00)
[2020-12-28] MEDS ORDERED: *HR* Metoprolol 5 MG/5 ML VIAL IVP ONE (09:55)
[2020-12-28] MEDS: Insulin LISPRO 300 UNITS/3 ML VIAL SUBQ SCH ×3 (10:10→17:18)
[2020-12-28] MEDS ORDERED: Metoprolol XL (24 HR) Succ 50 MG TAB.ER.24H PO ONE (10:21)
[2020-12-28] MEDS ORDERED: *HR* Metoprolol 5 MG/5 ML VIAL IVP PRN (13:36)
[2020-12-28] MEDS: *HR* Insulin Regular U-500 500 UNIT/ML SUBQ SCH (17:18)
[2020-12-29 05:04] LABS: Basophils # 0.1 K/mcL (0.0-0.2); Basophils % 0.8 %; Eosinophils # 0.2 K/mcL (0.0-0.6); Eosinophils % 2.5 %; Hematocrit 34.3 % (37.5-50.1); Hemoglobin 11.2 g/dL (12.9-16.9); Immature Granulocytes % 1.9 % (0-4); Lymphocytes % 22.4 %; Mean Corpuscular HGB Conc 32.7 g/dL (31.6-35.5); Mean Corpuscular Hemoglobin 30.2 pg (28.0-33.3); Mean Corpuscular Volume 92.5 fL (83.0-100.0); Mean Platelet Volume 9.4 fL (9.4-12.4); Monocytes # 0.6 K/mcL (0.0-1.3); Monocytes % 6.2 %; Neutrophils # 5.9 K/mcL (1.6-8.9); Platelet Count 357 K/mcL (140-400); Red Blood Count 3.71 M/mcL (4.19-5.50); Red Cell Distribution Width 13.2 % (11.5-14.5); Segmented Neutrophils % 66.2 %; White Blood Count 8.9 K/mcL (4.3-11.1)
[2020-12-29 05:21] LABS: BUN/Creatinine Ratio 20 (6-26); Blood Urea Nitrogen 20 mg/dL (6-20); Calcium 8.3 mg/dL (8.6-10.3); Carbon Dioxide 22 mEq/L (23-29); Chloride 97 mEq/L (98-107); Glucose 353 mg/dL (70-105); Osmolality,Calculated 283 (280-300); Potassium 4.2 mEq/L (3.5-5.1); Sodium 128 mEq/L (136-145); eGFR For African Americans > 60 (> 60); eGFR For Non-African Americans > 60 (> 60)
[2020-12-29] MEDS: *HR* OxyCODONE ER (12 HR) 10 MG TABLET PO SCH ×2 (06:11→17:24)
[2020-12-29] MEDS: Piperacillin/Tazobactam 3.375 GM in 0.9 % Sodium Chloride Mini Bag 100 ML IVPB SCH ×2 (08:08→19:20)
[2020-12-29] MEDS: Metoprolol XL (24 HR) Succ 50 MG TAB.ER.24H PO SCH ×2 (08:09→12:13)
[2020-12-29] MEDS: Furosemide 40 MG TABLET PO SCH (08:09)
[2020-12-29] MEDS: Insulin LISPRO 300 UNITS/3 ML VIAL SUBQ SCH ×3 (08:10→17:24)
[2020-12-29] MEDS: *HR* Insulin Regular U-500 500 UNIT/ML SUBQ SCH ×3 (08:22→17:25)
[2020-12-30] MEDS: *HR* OxyCODONE ER (12 HR) 10 MG TABLET PO SCH ×2 (05:53→17:29)
[2020-12-30] MEDS: Furosemide 40 MG TABLET PO SCH (08:21)
[2020-12-30] MEDS: Metoprolol XL (24 HR) Succ 50 MG TAB.ER.24H PO SCH (08:21)
[2020-12-30] MEDS: *HR* Insulin Regular U-500 500 UNIT/ML SUBQ SCH ×3 (08:24→17:23)
[2020-12-30] MEDS: Insulin LISPRO 300 UNITS/3 ML VIAL SUBQ SCH ×3 (08:27→17:23)
[2020-12-30 10:40] LABS: Hematocrit 37.2 % (37.5-50.1); Mean Corpuscular HGB Conc 32.3 g/dL (31.6-35.5); Mean Corpuscular Hemoglobin 30.1 pg (28.0-33.3); Mean Corpuscular Volume 93.2 fL (83.0-100.0); Mean Platelet Volume 9.5 fL (9.4-12.4); Platelet Count 380 K/mcL (140-400); Red Blood Count 3.99 M/mcL (4.19-5.50); Red Cell Distribution Width 13.2 % (11.5-14.5)
[2020-12-30 10:46] LABS: White Blood Count 14.3 K/mcL (4.3-11.1)
[2020-12-30 11:14] LABS: BUN/Creatinine Ratio 20 (6-26); Blood Urea Nitrogen 22 mg/dL (6-20); Calcium 9.1 mg/dL (8.6-10.3); Carbon Dioxide 26 mEq/L (23-29); Chloride 96 mEq/L (98-107); Glucose 258 mg/dL (70-105); Osmolality,Calculated 282 (280-300); Potassium 4.5 mEq/L (3.5-5.1); Sodium 130 mEq/L (136-145); eGFR For African Americans > 60 (> 60); eGFR For Non-African Americans > 60 (> 60)
[2020-12-31] MEDS: *HR* OxyCODONE ER (12 HR) 10 MG TABLET PO SCH ×2 (05:35→17:36)
[2020-12-31 08:47] LABS: Hemoglobin 11.8 g/dL (12.9-16.9); Mean Corpuscular HGB Conc 32.8 g/dL (31.6-35.5); Mean Corpuscular Hemoglobin 30.5 pg (28.0-33.3); Mean Platelet Volume 9.1 fL (9.4-12.4); Platelet Count 349 K/mcL (140-400); Red Blood Count 3.87 M/mcL (4.19-5.50); Red Cell Distribution Width 13.4 % (11.5-14.5); White Blood Count 16.7 K/mcL (4.3-11.1)
[2020-12-31] MEDS: Furosemide 40 MG TABLET PO SCH (08:55)
[2020-12-31] MEDS: Metoprolol XL (24 HR) Succ 50 MG TAB.ER.24H PO SCH (08:55)
[2020-12-31] MEDS: Insulin LISPRO 300 UNITS/3 ML VIAL SUBQ SCH ×2 (08:58→14:19)
[2020-12-31 09:15] LABS: BUN/Creatinine Ratio 20 (6-26); Blood Urea Nitrogen 21 mg/dL (6-20); Carbon Dioxide 27 mEq/L (23-29); Chloride 98 mEq/L (98-107); Glucose 144 mg/dL (70-105); Osmolality,Calculated 278 (280-300); Potassium 4.6 mEq/L (3.5-5.1); Sodium 131 mEq/L (136-145); eGFR For African Americans > 60 (> 60); eGFR For Non-African Americans > 60 (> 60)
[2020-12-31] MEDS: *HR* Insulin Regular U-500 500 UNIT/ML SUBQ SCH ×3 (10:40→17:36)
[2021-01-01] MEDS: *HR* OxyCODONE ER (12 HR) 10 MG TABLET PO SCH ×2 (05:14→18:05)
[2021-01-01 06:14] LABS: Hematocrit 35.8 % (37.5-50.1); Hemoglobin 11.9 g/dL (12.9-16.9); Mean Corpuscular HGB Conc 33.2 g/dL (31.6-35.5); Mean Corpuscular Hemoglobin 29.8 pg (28.0-33.3); Mean Corpuscular Volume 89.5 fL (83.0-100.0); Mean Platelet Volume 9.2 fL (9.4-12.4); Platelet Count 333 K/mcL (140-400); Red Cell Distribution Width 13.3 % (11.5-14.5); White Blood Count 17.9 K/mcL (4.3-11.1)
[2021-01-01 06:26] LABS: BUN/Creatinine Ratio 24 (6-26); Blood Urea Nitrogen 23 mg/dL (6-20); Carbon Dioxide 24 mEq/L (23-29); Chloride 99 mEq/L (98-107); Glucose 95 mg/dL (70-105); Osmolality,Calculated 275 (280-300); Sodium 131 mEq/L (136-145); eGFR For African Americans > 60 (> 60); eGFR For Non-African Americans > 60 (> 60)
[2021-01-01] MEDS: Metoprolol XL (24 HR) Succ 50 MG TAB.ER.24H PO SCH (08:47)
[2021-01-01] MEDS: Furosemide 40 MG TABLET PO SCH (08:48)
[2021-01-01] MEDS: Insulin LISPRO 300 UNITS/3 ML VIAL SUBQ SCH ×3 (08:51→19:05)
[2021-01-01] MEDS: *HR* Insulin Regular U-500 500 UNIT/ML SUBQ SCH ×3 (08:58→19:04)
[2021-01-01 14:10] LABS: Influenza A PCR Negative (Negative); Influenza B PCR Negative (Negative); Resp. Syncytial Virus PCR Negative (Negative)
[2021-01-01 14:31] LABS: SARS-CoV-2 by PCR (In House) Negative (Negative)
[2021-01-02 02:48] LABS: Basophils # 0.1 K/mcL (0.0-0.2); Basophils % 0.4 %; Eosinophils # 0.4 K/mcL (0.0-0.6); Eosinophils % 2.7 %; Hematocrit 34.7 % (37.5-50.1); Hemoglobin 11.3 g/dL (12.9-16.9); Immature Granulocytes % 1.2 % (0-4); Mean Corpuscular HGB Conc 32.6 g/dL (31.6-35.5); Mean Corpuscular Hemoglobin 30.1 pg (28.0-33.3); Mean Corpuscular Volume 92.3 fL (83.0-100.0); Mean Platelet Volume 9.3 fL (9.4-12.4); Neutrophils # 12.8 K/mcL (1.6-8.9); Platelet Count 397 K/mcL (140-400); Red Blood Count 3.76 M/mcL (4.19-5.50); Red Cell Distribution Width 13.5 % (11.5-14.5); Segmented Neutrophils % 77.7 %; White Blood Count 16.4 K/mcL (4.3-11.1)
[2021-01-02 03:04] LABS: BUN/Creatinine Ratio 18 (6-26); Blood Urea Nitrogen 21 mg/dL (6-20); Calcium 9.1 mg/dL (8.6-10.3); Carbon Dioxide 25 mEq/L (23-29); Chloride 98 mEq/L (98-107); Glucose 69 mg/dL (70-105); Osmolality,Calculated 271 (280-300); Potassium 4.3 mEq/L (3.5-5.1); Sodium 130 mEq/L (136-145); eGFR For African Americans > 60 (> 60); eGFR For Non-African Americans > 60 (> 60)
[2021-01-02] MEDS: *HR* OxyCODONE ER (12 HR) 10 MG TABLET PO SCH ×2 (05:44→17:59)
[2021-01-02] MEDS: Furosemide 40 MG TABLET PO SCH (08:39)
[2021-01-02] MEDS: *HR* Insulin Regular U-500 500 UNIT/ML SUBQ SCH ×3 (08:39→16:55)
[2021-01-02] MEDS: Metoprolol XL (24 HR) Succ 50 MG TAB.ER.24H PO SCH (08:39)
[2021-01-02] MEDS: Insulin LISPRO 300 UNITS/3 ML VIAL SUBQ SCH ×3 (08:42→16:57)
[2021-01-02 15:56] VITALS: O2SAT 96
[2021-01-02 19:03] VITALS: BP 112/72; PULSE 71; TEMP 98.2
== END 2021-01-02 21:30 | disposition other institution (70) | DRG 853 ==
LOC: 2NNU 17:42 → SUATTDRO 17:42 → 3NENU 12-26 05:51
PROVIDERS: ADMIT Internal Medicine; ATTEND Family Medicine

== ENCOUNTER 2021-05-02 15:39 | Inpatient (IN) ==
[2021-05-02 21:12] LABS: Basophils # 0.1 K/mcL (0.0-0.2); Basophils % 0.9 %; Eosinophils # 0.2 K/mcL (0.0-0.6); Eosinophils % 1.7 %; Hematocrit 45.6 % (37.5-50.1); Hemoglobin 14.3 g/dL (12.9-16.9); Immature Granulocytes % 0.4 % (0-4); Mean Corpuscular HGB Conc 31.4 g/dL (31.6-35.5); Mean Corpuscular Hemoglobin 25.6 pg (28.0-33.3); Mean Corpuscular Volume 81.6 fL (83.0-100.0); Mean Platelet Volume 9.7 fL (9.4-12.4); Monocytes # 0.9 K/mcL (0.0-1.3); Monocytes % 7.8 %; Platelet Count 330 K/mcL (140-400); Red Blood Count 5.59 M/mcL (4.19-5.50); Red Cell Distribution Width 16.5 % (11.5-14.5); Segmented Neutrophils % 80.2 %; White Blood Count 11.2 K/mcL (4.3-11.1)
[2021-05-02] MEDS ORDERED: *HR* OxyCODONE Immed Rel 5 MG TABLET PO ONE (21:12)
[2021-05-02 21:21] LABS: INR 1.5; Prothrombin Time 16.2 Seconds (9.4-12.1)
[2021-05-02] MEDS ORDERED: Vancomycin 2,000 MG/520 ML IV.SOLN IVPB ONE (21:23)
[2021-05-02] MEDS ORDERED: Piperacillin/Tazobactam 3.375 GM in 0.9 % Sodium Chloride Mini Bag 100 ML IVPB ONE (21:23)
[2021-05-02 21:24] LABS: Activated Partial Thrombo Time 31.5 Seconds (26.0-36.0)
[2021-05-02 21:29] LABS: BUN/Creatinine Ratio 26 (6-26); Blood Urea Nitrogen 32 mg/dL (6-20); C-Reactive Protein 51 mg/L (Less than 10); Calcium 9.3 mg/dL (8.6-10.3); Carbon Dioxide 25 mEq/L (23-29); Chloride 96 mEq/L (98-107); Glucose 301 mg/dL (70-105); Osmolality,Calculated 280 (280-300); Potassium 4.4 mEq/L (3.5-5.1); Sodium 126 mEq/L (136-145); eGFR For African Americans > 60 (> 60); eGFR For Non-African Americans > 60 (> 60)
[2021-05-02] MEDS ORDERED: *HR* Heparin 5,000 UNIT/ML VIAL IVP PRN ×2 (21:40)
[2021-05-02] MEDS ORDERED: *HR* Heparin 5,000 UNIT/ML VIAL IVP ONE (21:40)
[2021-05-02 22:09] LABS: Influenza A PCR Negative (Negative); Influenza B PCR Negative (Negative); Resp. Syncytial Virus PCR Negative (Negative)
[2021-05-02] MEDS ORDERED: Isovue-370 500 ML BOTTLE IVP ONE (22:16)
[2021-05-02 22:24] LABS: SARS-CoV-2 by PCR (In House) Negative (Negative)
[2021-05-02] MEDS ORDERED: Acetaminophen 325 MG TABLET PO PRN (22:30)
[2021-05-02] MEDS ORDERED: Ondansetron 4 MG/2 ML VIAL IVP PRN (22:30)
[2021-05-02] MEDS ORDERED: Naloxone 0.4 MG/ML INJ IVP PRN (22:30)
[2021-05-02] MEDS ORDERED: D5% in Water 1,000 ML IVC PRN (22:33)
[2021-05-02] MEDS ORDERED: *HR* Dextrose 50 % in Water (Syg) 50 ML SYRINGE IVP PRN (22:33)
[2021-05-02] MEDS ORDERED: Dextrose Gel 15 GM/37.5 ML TUBE PO PRN ×2 (22:33)
[2021-05-02] MEDS: Heparin 25,000UNIT/250ML 1/2NS 25,000 UNIT/250 ML IV.SOLN IVC SCH (23:00)
[2021-05-03] MEDS ORDERED: Perflutren Lipid Microsphere 1.3 ML in 0.9 % Sodium Chloride 8.7 ML IVP PRN (00:03)
[2021-05-03 01:30] LABS: Basophils # 0.1 K/mcL (0.0-0.2); Basophils % 0.8 %; Eosinophils # 0.2 K/mcL (0.0-0.6); Eosinophils % 1.6 %; Hemoglobin 13.6 g/dL (12.9-16.9); Immature Granulocytes % 0.4 % (0-4); Lymphocytes # 1.1 K/mcL (0.6-4.6); Lymphocytes % 8.9 %; Mean Corpuscular HGB Conc 30.9 g/dL (31.6-35.5); Mean Corpuscular Volume 80.9 fL (83.0-100.0); Mean Platelet Volume 9.6 fL (9.4-12.4); Monocytes # 0.9 K/mcL (0.0-1.3); Monocytes % 7.9 %; Neutrophils # 9.6 K/mcL (1.6-8.9); Platelet Count 323 K/mcL (140-400); Red Blood Count 5.44 M/mcL (4.19-5.50); Red Cell Distribution Width 16.4 % (11.5-14.5); Segmented Neutrophils % 80.4 %; White Blood Count 11.9 K/mcL (4.3-11.1)
[2021-05-03] MEDS: 0.9 % Sodium Chloride 1,000 ML IVC SCH ×2 (01:39→12:29)
[2021-05-03 01:51] LABS: Alanine Aminotransferase 16 Units/L (7-52); Albumin 3.2 g/dL (3.5-5.7); Albumin/Globulin Ratio 0.8 (1.1-2.2); Alkaline Phosphatase 180 Units/L (34-104); Aspartate Amino Transferase 23 Units/L (13-39); BUN/Creatinine Ratio 24 (6-26); Bilirubin,Direct 0.5 mg/dL (0.0-0.2); Bilirubin,Indirect 0.6 mg/dL (0.0-1.0); Bilirubin,Total 1.1 mg/dL (0.3-1.0); Blood Urea Nitrogen 30 mg/dL (6-20); Calcium 9.1 mg/dL (8.6-10.3); Carbon Dioxide 25 mEq/L (23-29); Chloride 95 mEq/L (98-107); Globulin 4.1 g/dL (2.4-3.5); Glucose 325 mg/dL (70-105); Magnesium 1.7 mg/dL (1.6-2.6); Osmolality,Calculated 285 (280-300); Potassium 4.3 mEq/L (3.5-5.1); Sodium 128 mEq/L (136-145); Total Protein 7.3 g/dL (6.4-8.9); eGFR For African Americans > 60 (> 60); eGFR For Non-African Americans 59 (> 60)
[2021-05-03 01:54] LABS: C-Reactive Protein 47 mg/L (Less than 10)
[2021-05-03] MEDS ORDERED: Simethicone 80 MG TAB.CHEW PO PRN (02:01)
[2021-05-03 02:04] LABS: Thyroid Stimulating Hormone 2.642 mcIU/mL (0.340-5.600)
[2021-05-03] MEDS ORDERED: Insulin LISPRO 300 UNITS/3 ML VIAL SUBQ ONE (03:06)
[2021-05-03] MEDS: Insulin LISPRO 300 UNITS/3 ML VIAL SUBQ SCH ×3 (04:35→12:16)
[2021-05-03] MEDS ORDERED: *HR* OxyCODONE Immed Rel 5 MG TABLET PO PRN ×2 (04:59→14:09)
[2021-05-03] MEDS ORDERED: Piperacillin/Tazobactam 3.375 GM in 0.9 % Sodium Chloride Mini Bag 100 ML IVPB SCH (08:00)
[2021-05-03] MEDS ORDERED: Vancomycin 2,000 MG/520 ML IV.SOLN IVPB SCH ×2 (09:00→14:00)
[2021-05-03] MEDS ORDERED: Aspirin Enteric Coated 81 MG Tablet PO SCH (09:00)
[2021-05-03] MEDS ORDERED: *HR* OxyCODONE/APAP 10/325 TABLET PO PRN (11:20)
[2021-05-03] MEDS ORDERED: lisinopriL 5 MG TABLET PO SCH (11:30)
[2021-05-03 12:10] LABS: BUN/Creatinine Ratio 21 (6-26); Blood Urea Nitrogen 26 mg/dL (6-20); Calcium 8.8 mg/dL (8.6-10.3); Carbon Dioxide 25 mEq/L (23-29); Chloride 99 mEq/L (98-107); Glucose 217 mg/dL (70-105); Osmolality,Calculated 283 (280-300); Potassium 4.1 mEq/L (3.5-5.1); Sodium 131 mEq/L (136-145); eGFR For African Americans > 60 (> 60); eGFR For Non-African Americans > 60 (> 60)
[2021-05-03] MEDS: Furosemide 40 MG/4 ML VIAL IVP SCH (12:28)
[2021-05-03] MEDS: Heparin 25,000UNIT/250ML 1/2NS 25,000 UNIT/250 ML IV.SOLN IVC SCH (12:30)
[2021-05-03] MEDS: Piperacillin/Tazobactam 3.375 GM in 0.9 % Sodium Chloride Mini Bag 100 ML IVPB SCH ×3 (13:20→20:31)
[2021-05-03] MEDS ORDERED: *HR* Labetalol 20 MG/4 ML SYRINGE IVP PRN (14:09)
[2021-05-03] MEDS ORDERED: Acetaminophen IV 1,000 MG/100 ML BAG IVPB PRN (14:09)
[2021-05-03] MEDS ORDERED: Ondansetron 4 MG/2 ML VIAL IVP PRN (14:09)
[2021-05-03] MEDS ORDERED: Insulin Human Regular 5 UNIT in 0.9 % Sodium Chloride 10 ML IV ONE (14:09)
[2021-05-03] MEDS ORDERED: *HR* Propofol 200 MG/20 ML VIAL IVP ONE (14:14)
[2021-05-03] MEDS ORDERED: *HR* Midazolam HCl 2 MG/2 ML VIAL ONE (14:14)
[2021-05-03] MEDS ORDERED: *HR* FentaNYL (PF) 100 MCG/2 ML VIAL ONE ×2 (14:14→16:18)
[2021-05-03] MEDS ORDERED: Ondansetron 4 MG/2 ML VIAL ONE (14:15)
[2021-05-03] MEDS ORDERED: Lidocaine -MPF 2% 5 ML VIAL ONE (14:15)
[2021-05-03] MEDS ORDERED: Heparin 1,000 UNITS/500 mL 500 ML ONE (14:32)
[2021-05-03] MEDS ORDERED: EPHEDrine 50 MG/ML VIAL ONE (15:41)
[2021-05-03] MEDS: *HR* HYDROmorphone PF 0.5 MG/0.5 ML SYRINGE IVP PRN ×2 (17:45→18:00)
[2021-05-03] MEDS: *HR* OxyCODONE ER (12 HR) 10 MG TABLET PO SCH (19:45)
[2021-05-03] MEDS ORDERED: Naloxone 0.4 MG/ML INJ IVP PRN (20:49)
[2021-05-03] MEDS ORDERED: Dextrose Gel 15 GM/37.5 ML TUBE PO PRN ×2 (20:49)
[2021-05-03] MEDS ORDERED: D5% in Water 1,000 ML IVC PRN (20:49)
[2021-05-03] MEDS ORDERED: *HR* Dextrose 50 % in Water (Syg) 50 ML SYRINGE IVP PRN (20:49)
[2021-05-03] MEDS ORDERED: *HR* Heparin 5,000 UNIT/ML VIAL IVP PRN ×2 (20:49)
[2021-05-03] MEDS ORDERED: Insulin DETEMIR 100 UNIT/ML X5UNITS SUBQ SCH (21:00)
[2021-05-03] MEDS ORDERED: *HR* OxyCODONE ER (12 HR) 10 MG TABLET PO SCH (21:00)
[2021-05-03] MEDS ORDERED: Budesonide/Formoterol 160/4.5 1 PUFF INH IH SCH (22:00)
[2021-05-03] MEDS: Acetaminophen 325 MG TABLET PO PRN (22:56)
[2021-05-03] MEDS: Insulin DETEMIR 100 UNIT/ML X5UNITS SUBQ SCH (23:04)
[2021-05-03] MEDS: Budesonide/Formoterol 160/4.5 1 PUFF INH IH SCH (23:32)
[2021-05-04] MEDS: Vancomycin 2,000 MG/520 ML IV.SOLN IVPB SCH ×2 (02:13→15:01)
[2021-05-04] MEDS: Heparin 25,000UNIT/250ML 1/2NS 25,000 UNIT/250 ML IV.SOLN IVC SCH ×3 (02:19→16:14)
[2021-05-04 03:11] LABS: Hematocrit 42.3 % (37.5-50.1); Mean Corpuscular HGB Conc 30.7 g/dL (31.6-35.5); Mean Corpuscular Hemoglobin 25.6 pg (28.0-33.3); Mean Corpuscular Volume 83.4 fL (83.0-100.0); Mean Platelet Volume 9.6 fL (9.4-12.4); Platelet Count 349 K/mcL (140-400); Red Blood Count 5.07 M/mcL (4.19-5.50); White Blood Count 14.2 K/mcL (4.3-11.1)
[2021-05-04 03:30] LABS: Calcium 8.5 mg/dL (8.6-10.3); Magnesium 1.6 mg/dL (1.6-2.6); Phosphorous 4.1 mg/dL (2.7-4.5); Potassium 4.9 mEq/L (3.5-5.1)
[2021-05-04] MEDS: *HR* OxyCODONE/APAP 10/325 TABLET PO PRN ×2 (04:44→16:53)
[2021-05-04] MEDS: Piperacillin/Tazobactam 3.375 GM in 0.9 % Sodium Chloride Mini Bag 100 ML IVPB SCH ×3 (04:45→20:30)
[2021-05-04] MEDS: Budesonide/Formoterol 160/4.5 1 PUFF INH IH SCH ×2 (07:28→20:20)
[2021-05-04] MEDS ORDERED: Furosemide 40 MG/4 ML VIAL IVP SCH (08:00)
[2021-05-04] MEDS: Insulin DETEMIR 100 UNIT/ML X5UNITS SUBQ SCH ×2 (08:52→20:41)
[2021-05-04] MEDS: Insulin LISPRO 300 UNITS/3 ML VIAL SUBQ SCH ×3 (08:52→16:26)
[2021-05-04] MEDS: Loratadine 10 MG TABLET PO SCH (08:53)
[2021-05-04] MEDS: *HR* OxyCODONE ER (12 HR) 10 MG TABLET PO SCH ×2 (08:54→20:30)
[2021-05-04] MEDS: lisinopriL 5 MG TABLET PO SCH (08:54)
[2021-05-04] MEDS ORDERED: Loratadine 10 MG TABLET PO SCH (09:00)
[2021-05-04] MEDS: Isosorbide MONOnitrate (24 HR) 30 MG TAB.ER.24H PO SCH (12:07)
[2021-05-04 13:59] LABS: INR 1.8; Prothrombin Time 20.3 Seconds (9.4-12.1)
[2021-05-04] MEDS: Ondansetron 4 MG/2 ML VIAL IVP PRN (16:53)
[2021-05-04] MEDS: Warfarin perPT PO SCH (17:02)
[2021-05-04] MEDS ORDERED: *HR* Warfarin 2.5 MG TABLET PO SCH (18:00)
[2021-05-04] MEDS: Metoprolol XL (24 HR) Succ 50 MG TAB.ER.24H PO SCH (20:30)
[2021-05-05] MEDS: *HR* OxyCODONE/APAP 10/325 TABLET PO PRN (02:44)
[2021-05-05] MEDS: Heparin 25,000UNIT/250ML 1/2NS 25,000 UNIT/250 ML IV.SOLN IVC SCH ×2 (02:59→18:38)
[2021-05-05] MEDS ORDERED: Vancomycin 1,750 MG/517.5 ML IV.SOLN IVPB SCH (03:00)
[2021-05-05] MEDS: Piperacillin/Tazobactam 3.375 GM in 0.9 % Sodium Chloride Mini Bag 100 ML IVPB SCH ×3 (05:11→19:25)
[2021-05-05] MEDS: Budesonide/Formoterol 160/4.5 1 PUFF INH IH SCH ×2 (07:33→20:28)
[2021-05-05 08:25] LABS: Hemoglobin 11.8 g/dL (12.9-16.9); Mean Corpuscular HGB Conc 31.1 g/dL (31.6-35.5); Mean Corpuscular Hemoglobin 25.9 pg (28.0-33.3); Mean Corpuscular Volume 83.3 fL (83.0-100.0); Mean Platelet Volume 9.4 fL (9.4-12.4); Platelet Count 317 K/mcL (140-400); Red Blood Count 4.56 M/mcL (4.19-5.50); Red Cell Distribution Width 17.1 % (11.5-14.5)
[2021-05-05 08:33] LABS: INR 1.8; Prothrombin Time 20.3 Seconds (9.4-12.1)
[2021-05-05 08:46] LABS: Calcium 8.5 mg/dL (8.6-10.3); Potassium 4.9 mEq/L (3.5-5.1)
[2021-05-05] MEDS ORDERED: Metoclopramide 10 MG/2 ML VIAL IVP ONE (09:15)
[2021-05-05] MEDS: *HR* OxyCODONE ER (12 HR) 10 MG TABLET PO SCH ×2 (09:27→19:25)
[2021-05-05] MEDS: Metoprolol XL (24 HR) Succ 50 MG TAB.ER.24H PO SCH ×2 (09:29→19:25)
[2021-05-05] MEDS: Isosorbide MONOnitrate (24 HR) 30 MG TAB.ER.24H PO SCH (09:29)
[2021-05-05] MEDS: Loratadine 10 MG TABLET PO SCH (09:30)
[2021-05-05] MEDS: Insulin LISPRO 300 UNITS/3 ML VIAL SUBQ SCH ×4 (09:31→19:39)
[2021-05-05] MEDS: Insulin DETEMIR 100 UNIT/ML X5UNITS SUBQ SCH ×2 (09:31→19:24)
[2021-05-05] MEDS: lisinopriL 5 MG TABLET PO SCH (09:35)
[2021-05-05] MEDS ORDERED: 0.9 % Sodium Chloride 1,000 ML IVC SCH (10:00)
[2021-05-05] MEDS: Warfarin perPT PO SCH (16:50)
[2021-05-05] MEDS ORDERED: *HR* Warfarin 2.5 MG TABLET PO ONE ×2 (18:00)
[2021-05-05] MEDS: Furosemide 40 MG/4 ML VIAL IVP SCH (19:39)
[2021-05-06 01:50] LABS: Basophils # 0.1 K/mcL (0.0-0.2); Eosinophils # 0.3 K/mcL (0.0-0.6); Eosinophils % 2.8 %; Hematocrit 35.9 % (37.5-50.1); Hemoglobin 11.2 g/dL (12.9-16.9); Immature Granulocytes % 0.5 % (0-4); Lymphocytes # 1.4 K/mcL (0.6-4.6); Lymphocytes % 11.9 %; Mean Corpuscular HGB Conc 31.2 g/dL (31.6-35.5); Mean Corpuscular Volume 83.3 fL (83.0-100.0); Mean Platelet Volume 9.7 fL (9.4-12.4); Monocytes # 1.2 K/mcL (0.0-1.3); Monocytes % 10.7 %; Neutrophils # 8.4 K/mcL (1.6-8.9); Platelet Count 323 K/mcL (140-400); Red Blood Count 4.31 M/mcL (4.19-5.50); Segmented Neutrophils % 73.1 %; White Blood Count 11.4 K/mcL (4.3-11.1)
[2021-05-06 01:58] LABS: Heparin anti-factor XA UFH 0.41 IU/mL (0.30-0.70)
[2021-05-06 01:59] LABS: INR 1.9; Prothrombin Time 20.6 Seconds (9.4-12.1)
[2021-05-06 02:06] LABS: Calcium 8.5 mg/dL (8.6-10.3); Potassium 4.4 mEq/L (3.5-5.1)
[2021-05-06] MEDS: Heparin 25,000UNIT/250ML 1/2NS 25,000 UNIT/250 ML IV.SOLN IVC SCH ×2 (03:48→18:19)
[2021-05-06] MEDS: Piperacillin/Tazobactam 3.375 GM in 0.9 % Sodium Chloride Mini Bag 100 ML IVPB SCH ×3 (05:21→20:17)
[2021-05-06] MEDS: Budesonide/Formoterol 160/4.5 1 PUFF INH IH SCH ×2 (07:44→20:28)
[2021-05-06] MEDS: *HR* OxyCODONE ER (12 HR) 10 MG TABLET PO SCH ×2 (09:18→20:16)
[2021-05-06] MEDS: Loratadine 10 MG TABLET PO SCH (09:18)
[2021-05-06] MEDS: Isosorbide MONOnitrate (24 HR) 30 MG TAB.ER.24H PO SCH (09:19)
[2021-05-06] MEDS: Metoprolol XL (24 HR) Succ 50 MG TAB.ER.24H PO SCH ×2 (09:19→20:16)
[2021-05-06] MEDS: Insulin DETEMIR 100 UNIT/ML X5UNITS SUBQ SCH ×2 (09:24→20:16)
[2021-05-06] MEDS: Simethicone 80 MG TAB.CHEW PO PRN (10:01)
[2021-05-06] MEDS: Ondansetron 4 MG/2 ML VIAL IVP PRN (10:01)
[2021-05-06] MEDS: Insulin LISPRO 300 UNITS/3 ML VIAL SUBQ SCH ×3 (10:02→18:26)
[2021-05-06] MEDS: *HR* OxyCODONE/APAP 10/325 TABLET PO PRN (10:13)
[2021-05-06] MEDS ORDERED: *HR* Warfarin 2.5 MG TABLET PO ONE (18:00)
[2021-05-06] MEDS: Warfarin perPT PO SCH (18:23)
[2021-05-07] MEDS: *HR* OxyCODONE/APAP 10/325 TABLET PO PRN ×2 (04:58→17:26)
[2021-05-07] MEDS: Piperacillin/Tazobactam 3.375 GM in 0.9 % Sodium Chloride Mini Bag 100 ML IVPB SCH ×3 (04:59→21:50)
[2021-05-07] MEDS: Ondansetron 4 MG/2 ML VIAL IVP PRN (05:38)
[2021-05-07] MEDS: Heparin 25,000UNIT/250ML 1/2NS 25,000 UNIT/250 ML IV.SOLN IVC SCH ×2 (06:27→17:24)
[2021-05-07 06:43] LABS: Basophils # 0.1 K/mcL (0.0-0.2); Basophils % 0.9 %; Eosinophils # 0.4 K/mcL (0.0-0.6); Eosinophils % 3.5 %; Hematocrit 35.7 % (37.5-50.1); Hemoglobin 11.3 g/dL (12.9-16.9); Immature Granulocytes % 0.4 % (0-4); Lymphocytes # 1.4 K/mcL (0.6-4.6); Lymphocytes % 12.5 %; Mean Corpuscular HGB Conc 31.7 g/dL (31.6-35.5); Mean Corpuscular Hemoglobin 26.1 pg (28.0-33.3); Mean Corpuscular Volume 82.4 fL (83.0-100.0); Mean Platelet Volume 9.4 fL (9.4-12.4); Monocytes # 1.1 K/mcL (0.0-1.3); Monocytes % 9.8 %; Platelet Count 306 K/mcL (140-400); Red Blood Count 4.33 M/mcL (4.19-5.50); Red Cell Distribution Width 17.5 % (11.5-14.5); Segmented Neutrophils % 72.9 %
[2021-05-07 07:00] LABS: Heparin anti-factor XA UFH 0.59 IU/mL (0.30-0.70)
[2021-05-07 07:02] LABS: BUN/Creatinine Ratio 18 (6-26); Blood Urea Nitrogen 25 mg/dL (6-20); Calcium 8.7 mg/dL (8.6-10.3); Carbon Dioxide 24 mEq/L (23-29); Chloride 101 mEq/L (98-107); Glucose 191 mg/dL (70-105); Osmolality,Calculated 282 (280-300); Potassium 4.4 mEq/L (3.5-5.1); Sodium 131 mEq/L (136-145); eGFR For African Americans > 60 (> 60); eGFR For Non-African Americans 52 (> 60)
[2021-05-07] MEDS: Budesonide/Formoterol 160/4.5 1 PUFF INH IH SCH ×2 (07:47→20:05)
[2021-05-07] MEDS: *HR* OxyCODONE ER (12 HR) 10 MG TABLET PO SCH ×2 (08:44→21:50)
[2021-05-07] MEDS: Insulin DETEMIR 100 UNIT/ML X5UNITS SUBQ SCH ×2 (08:45→22:02)
[2021-05-07] MEDS: Insulin LISPRO 300 UNITS/3 ML VIAL SUBQ SCH ×3 (08:45→17:24)
[2021-05-07] MEDS: Metoprolol XL (24 HR) Succ 50 MG TAB.ER.24H PO SCH ×2 (08:45→21:50)
[2021-05-07] MEDS: Loratadine 10 MG TABLET PO SCH (08:45)
[2021-05-07] MEDS: Isosorbide MONOnitrate (24 HR) 30 MG TAB.ER.24H PO SCH (08:45)
[2021-05-07] MEDS ORDERED: Aspirin Enteric Coated 81 MG Tablet PO SCH (09:00)
[2021-05-07] MEDS: Vancomycin 1,750 MG/517.5 ML IV.SOLN IVPB SCH ×2 (17:24→21:49)
[2021-05-07] MEDS: Warfarin perPT PO SCH (17:25)
[2021-05-08] MEDS: Piperacillin/Tazobactam 3.375 GM in 0.9 % Sodium Chloride Mini Bag 100 ML IVPB SCH ×3 (05:54→19:46)
[2021-05-08] MEDS: Heparin 25,000UNIT/250ML 1/2NS 25,000 UNIT/250 ML IV.SOLN IVC SCH (05:55)
[2021-05-08] MEDS: Budesonide/Formoterol 160/4.5 1 PUFF INH IH SCH ×2 (07:39→20:16)
[2021-05-08] MEDS: Ondansetron 4 MG/2 ML VIAL IVP PRN ×2 (08:20→16:26)
[2021-05-08] MEDS: Insulin LISPRO 300 UNITS/3 ML VIAL SUBQ SCH ×3 (08:23→16:22)
[2021-05-08] MEDS: Metoprolol XL (24 HR) Succ 50 MG TAB.ER.24H PO SCH ×2 (08:24→19:46)
[2021-05-08] MEDS: Insulin DETEMIR 100 UNIT/ML X5UNITS SUBQ SCH ×2 (08:24→20:29)
[2021-05-08] MEDS: *HR* OxyCODONE ER (12 HR) 10 MG TABLET PO SCH ×2 (08:25→19:47)
[2021-05-08] MEDS: Isosorbide MONOnitrate (24 HR) 30 MG TAB.ER.24H PO SCH (08:25)
[2021-05-08] MEDS: Loratadine 10 MG TABLET PO SCH (08:25)
[2021-05-08] MEDS: Micafungin 100 MG in 0.9 % Sodium Chloride Mini Bag 100 ML IVPB SCH (09:49)
[2021-05-08] MEDS: *HR* OxyCODONE/APAP 10/325 TABLET PO PRN (16:21)
[2021-05-08 16:51] LABS: INR 4.1
[2021-05-08 16:57] LABS: Prothrombin Time 45.3 Seconds (9.4-12.1)
[2021-05-08] MEDS: Warfarin perPT PO SCH (17:21)
[2021-05-08 18:22] LABS: eGFR For African Americans > 60 (> 60); eGFR For Non-African Americans 50 (> 60)
[2021-05-08] MEDS ORDERED: Vancomycin 1,750 MG/517.5 ML IV.SOLN IVPB SCH (22:00)
[2021-05-08] MEDS: Acetaminophen 325 MG TABLET PO PRN (22:52)
[2021-05-09 02:45] LABS: Calcium 8.3 mg/dL (8.6-10.3); Potassium 4.3 mEq/L (3.5-5.1)
[2021-05-09 02:49] LABS: Basophils # 0.1 K/mcL (0.0-0.2); Basophils % 0.9 %; Eosinophils # 0.4 K/mcL (0.0-0.6); Eosinophils % 3.7 %; Hemoglobin 11.3 g/dL (12.9-16.9); Immature Granulocytes % 0.4 % (0-4); Lymphocytes # 1.3 K/mcL (0.6-4.6); Mean Corpuscular HGB Conc 30.5 g/dL (31.6-35.5); Mean Corpuscular Hemoglobin 25.2 pg (28.0-33.3); Mean Corpuscular Volume 82.4 fL (83.0-100.0); Mean Platelet Volume 9.4 fL (9.4-12.4); Monocytes % 9.9 %; Neutrophils # 7.5 K/mcL (1.6-8.9); Platelet Count 305 K/mcL (140-400); Red Blood Count 4.49 M/mcL (4.19-5.50); Red Cell Distribution Width 17.2 % (11.5-14.5); Segmented Neutrophils % 72.1 %; White Blood Count 10.3 K/mcL (4.3-11.1)
[2021-05-09 02:58] LABS: INR 3.2; Prothrombin Time 35.7 Seconds (9.4-12.1)
[2021-05-09] MEDS: Piperacillin/Tazobactam 3.375 GM in 0.9 % Sodium Chloride Mini Bag 100 ML IVPB SCH (04:49)
[2021-05-09] MEDS: *HR* OxyCODONE/APAP 10/325 TABLET PO PRN (05:05)
[2021-05-09] MEDS: Loratadine 10 MG TABLET PO SCH (07:46)
[2021-05-09] MEDS: Simethicone 80 MG TAB.CHEW PO PRN ×2 (07:46→16:41)
[2021-05-09] MEDS: Isosorbide MONOnitrate (24 HR) 30 MG TAB.ER.24H PO SCH (07:46)
[2021-05-09] MEDS: Metoprolol XL (24 HR) Succ 50 MG TAB.ER.24H PO SCH ×2 (07:46→21:10)
[2021-05-09] MEDS: Insulin DETEMIR 100 UNIT/ML X5UNITS SUBQ SCH ×2 (07:47→21:09)
[2021-05-09] MEDS: Ondansetron 4 MG/2 ML VIAL IVP PRN (07:47)
[2021-05-09] MEDS: *HR* OxyCODONE ER (12 HR) 10 MG TABLET PO SCH ×2 (07:47→21:09)
[2021-05-09] MEDS: Micafungin 100 MG in 0.9 % Sodium Chloride Mini Bag 100 ML IVPB SCH (07:47)
[2021-05-09] MEDS: Insulin LISPRO 300 UNITS/3 ML VIAL SUBQ SCH ×3 (07:49→16:47)
[2021-05-09] MEDS: Aspirin Enteric Coated 81 MG Tablet PO SCH (07:59)
[2021-05-09] MEDS ORDERED: Metoclopramide 10 MG/2 ML VIAL IVP ONE (11:03)
[2021-05-09] MEDS: Budesonide/Formoterol 160/4.5 1 PUFF INH IH SCH ×2 (11:25→20:27)
[2021-05-09] MEDS: Acetaminophen 325 MG TABLET PO PRN (16:40)
[2021-05-09] MEDS: Warfarin perPT PO SCH (16:48)
[2021-05-09] MEDS ORDERED: *HR* Warfarin 1 MG TABLET PO ONE (18:00)
[2021-05-10] MEDS: *HR* OxyCODONE/APAP 10/325 TABLET PO PRN ×2 (00:43→12:43)
[2021-05-10 03:50] LABS: Basophils # 0.1 K/mcL (0.0-0.2); Basophils % 0.8 %; Eosinophils # 0.4 K/mcL (0.0-0.6); Eosinophils % 3.6 %; Hematocrit 35.4 % (37.5-50.1); Hemoglobin 11.1 g/dL (12.9-16.9); Immature Granulocytes % 0.4 % (0-4); Lymphocytes # 1.2 K/mcL (0.6-4.6); Lymphocytes % 9.7 %; Mean Corpuscular HGB Conc 31.4 g/dL (31.6-35.5); Mean Corpuscular Hemoglobin 25.6 pg (28.0-33.3); Mean Corpuscular Volume 81.8 fL (83.0-100.0); Mean Platelet Volume 9.4 fL (9.4-12.4); Neutrophils # 9.1 K/mcL (1.6-8.9); Platelet Count 315 K/mcL (140-400); Red Blood Count 4.33 M/mcL (4.19-5.50); Segmented Neutrophils % 77.5 %; White Blood Count 11.8 K/mcL (4.3-11.1)
[2021-05-10 04:13] LABS: BUN/Creatinine Ratio 16 (6-26); Blood Urea Nitrogen 22 mg/dL (6-20); Calcium 8.4 mg/dL (8.6-10.3); Carbon Dioxide 26 mEq/L (23-29); Chloride 101 mEq/L (98-107); Glucose 254 mg/dL (70-105); Osmolality,Calculated 278 (280-300); Potassium 4.4 mEq/L (3.5-5.1); Sodium 128 mEq/L (136-145); eGFR For African Americans > 60 (> 60); eGFR For Non-African Americans 52 (> 60)
[2021-05-10 04:27] LABS: Influenza A PCR Negative (Negative); Influenza B PCR Negative (Negative); Resp. Syncytial Virus PCR Negative (Negative)
[2021-05-10 04:30] LABS: SARS-CoV-2 by PCR (In House) Positive (Negative)
[2021-05-10] MEDS: Budesonide/Formoterol 160/4.5 1 PUFF INH IH SCH ×2 (07:51→20:41)
[2021-05-10] MEDS: *HR* OxyCODONE ER (12 HR) 10 MG TABLET PO SCH ×2 (09:18→20:08)
[2021-05-10] MEDS: Metoprolol XL (24 HR) Succ 50 MG TAB.ER.24H PO SCH ×2 (09:18→20:09)
[2021-05-10] MEDS: Insulin DETEMIR 100 UNIT/ML X5UNITS SUBQ SCH ×2 (09:18→20:09)
[2021-05-10] MEDS: Loratadine 10 MG TABLET PO SCH (09:18)
[2021-05-10] MEDS: Isosorbide MONOnitrate (24 HR) 30 MG TAB.ER.24H PO SCH (09:18)
[2021-05-10] MEDS: Insulin LISPRO 300 UNITS/3 ML VIAL SUBQ SCH ×3 (09:18→17:18)
[2021-05-10] MEDS: Aspirin Enteric Coated 81 MG Tablet PO SCH (09:18)
[2021-05-10 09:57] LABS: INR 2.5; Prothrombin Time 27.5 Seconds (9.4-12.1)
[2021-05-10] MEDS: Warfarin perPT PO SCH (17:19)
[2021-05-10] MEDS ORDERED: *HR* Warfarin 1 MG TABLET PO ONE (18:00)
[2021-05-10 20:23] VITALS: BP 161/93; PULSE 63; TEMP 97.4; O2SAT 94
== END 2021-05-10 22:55 | disposition other institution (70) | DRG 474 ==
LOC: EMEROOARM 15:39 → 2ANU 15:39 → SUATTDRO 22:46 → OBSVTOIN 22:46 → 2ANU 05-03
PROVIDERS: ADMIT Student in an Organized Health Care Education/Training Program; ATTEND Internal Medicine

== ENCOUNTER 2021-07-07 23:41 | Inpatient (IN) ==
[2021-07-08] MEDS ORDERED: Isovue-370 500 ML BOTTLE IVP ONE (00:38)
[2021-07-08 00:53] LABS: Basophils # 0.1 K/mcL (0.0-0.2); Basophils % 0.4 %; Eosinophils # 0.3 K/mcL (0.0-0.6); Eosinophils % 1.4 %; Hematocrit 39.1 % (37.5-50.1); Hemoglobin 12.7 g/dL (12.9-16.9); Immature Granulocytes % 0.8 % (0-4); Lymphocytes % 5.3 %; Mean Corpuscular HGB Conc 32.5 g/dL (31.6-35.5); Mean Corpuscular Hemoglobin 25.6 pg (28.0-33.3); Mean Corpuscular Volume 78.7 fL (83.0-100.0); Mean Platelet Volume 8.8 fL (9.4-12.4); Monocytes % 5.5 %; Neutrophils # 15.5 K/mcL (1.6-8.9); Platelet Count 377 K/mcL (140-400); Red Blood Count 4.97 M/mcL (4.19-5.50); Red Cell Distribution Width 19.2 % (11.5-14.5); Segmented Neutrophils % 86.6 %; White Blood Count 17.9 K/mcL (4.3-11.1)
[2021-07-08 01:18] LABS: Albumin 2.8 g/dL (3.5-5.7); Albumin/Globulin Ratio 0.5 (1.1-2.2); Bilirubin,Direct 1.1 mg/dL (0.0-0.2); Bilirubin,Indirect 0.8 mg/dL (0.0-1.0); Bilirubin,Total 1.9 mg/dL (0.3-1.0); Calcium 9.6 mg/dL (8.6-10.3); Globulin 5.7 g/dL (2.4-3.5); Potassium 4.7 mEq/L (3.5-5.1); Total Protein 8.5 g/dL (6.4-8.9)
[2021-07-08 01:25] LABS: Troponin I 0.06 ng/mL (< 0.04)
[2021-07-08 02:13] LABS: Bacteria,Urine Many per hpf (None-Few); Bilirubin,Urine Negative (Negative); Blood,Urine Large (Negative); Clarity,Urine Turbid (Clear); Color,Urine Yellow (Yellow); Glucose,Urine (UA) Normal (Normal); Ketones,Urine Negative (Negative); Leukocyte Esterase,Urine Large (Negative); Mucus,Urine Few per lpf (None-Few); Nitrite,Urine Negative (Negative); PH,Urine 6.5 pH Units (5.0-8.0); Protein,Urine 50 mg/dL (Neg-Trace); RBC,Urine TNTC per hpf (0-3); Specific Gravity,Urine 1.013 (1.010-1.025); Urobilinogen,Urine Normal (Normal); WBC,Urine TNTC per hpf (0-3)
[2021-07-08 02:19] LABS: INR 2.2; Prothrombin Time 24.8 Seconds (9.4-12.1)
[2021-07-08 02:22] LABS: Activated Partial Thrombo Time 36.1 Seconds (26.0-36.0)
[2021-07-08] MEDS ORDERED: cefTRIAXone 1,000 MG in 0.9 % Sodium Chloride 10 ML IVP ONE (02:27)
[2021-07-08] MEDS ORDERED: Vancomycin 2,000 MG/520 ML IV.SOLN IVPB ONE (03:16)
[2021-07-08] MEDS ORDERED: Piperacillin/Tazobactam 3.375 GM in 0.9 % Sodium Chloride Mini Bag 100 ML IVPB ONE (03:16)
[2021-07-08] MEDS ORDERED: Acetaminophen 325 MG TABLET PO PRN (03:38)
[2021-07-08] MEDS ORDERED: Naloxone 0.4 MG/ML INJ IVP PRN (03:38)
[2021-07-08] MEDS ORDERED: Melatonin 3 MG TABLET PO PRN (03:38)
[2021-07-08] MEDS ORDERED: Ondansetron 4 MG/2 ML VIAL IVP PRN (03:38)
[2021-07-08] MEDS ORDERED: 0.9 % Sodium Chloride 1,000 ML IVC SCH (05:00)
[2021-07-08] MEDS ORDERED: *HR* Heparin 5,000 UNIT/ML VIAL IVP PRN ×2 (05:02)
[2021-07-08] MEDS ORDERED: *HR* Dextrose 50 % in Water (Syg) 50 ML SYRINGE IVP PRN (05:07)
[2021-07-08] MEDS ORDERED: D5% in Water 1,000 ML IVC PRN (05:07)
[2021-07-08] MEDS ORDERED: Dextrose 4 GM Chewable Tablets PO PRN ×2 (05:07)
[2021-07-08] MEDS ORDERED: Saliva Stimulant 44.3ml BOTTLE PO PRN (05:18)
[2021-07-08 05:53] LABS: Basophils # 0.1 K/mcL (0.0-0.2); Basophils % 0.5 %; Eosinophils # 0.2 K/mcL (0.0-0.6); Eosinophils % 1.3 %; Hematocrit 42.3 % (37.5-50.1); Hemoglobin 13.9 g/dL (12.9-16.9); Immature Granulocytes % 0.7 % (0-4); Lymphocytes % 6.5 %; Mean Corpuscular HGB Conc 32.9 g/dL (31.6-35.5); Mean Corpuscular Hemoglobin 25.7 pg (28.0-33.3); Mean Corpuscular Volume 78.3 fL (83.0-100.0); Mean Platelet Volume 9.4 fL (9.4-12.4); Monocytes # 0.5 K/mcL (0.0-1.3); Monocytes % 3.4 %; Platelet Count 419 K/mcL (140-400); Red Cell Distribution Width 19.5 % (11.5-14.5); Segmented Neutrophils % 87.6 %; White Blood Count 14.9 K/mcL (4.3-11.1)
[2021-07-08 05:55] LABS: Neutrophils # 13.1 K/mcL (1.6-8.9)
[2021-07-08 06:02] LABS: Heparin anti-factor XA UFH < 0.04 IU/mL (0.30-0.70); INR 2.1; Prothrombin Time 23.1 Seconds (9.4-12.1)
[2021-07-08 06:04] LABS: Activated Partial Thrombo Time 23.9 Seconds (26.0-36.0)
[2021-07-08] MEDS: Heparin 25,000UNIT/250ML 1/2NS 25,000 UNIT/250 ML IV.SOLN IVC SCH ×2 (06:06→11:23)
[2021-07-08 06:12] LABS: Calcium 9.5 mg/dL (8.6-10.3); Magnesium 1.9 mg/dL (1.6-2.6); Phosphorous 4.3 mg/dL (2.7-4.5); Potassium 5.1 mEq/L (3.5-5.1)
[2021-07-08] MEDS ORDERED: EPHEDrine 50 MG/ML VIAL ONE (08:03)
[2021-07-08] MEDS ORDERED: Lidocaine -MPF 2% 5 ML VIAL ONE (08:03)
[2021-07-08] MEDS ORDERED: *HR* FentaNYL (PF) 100 MCG/2 ML VIAL ONE (08:22)
[2021-07-08] MEDS ORDERED: Ketamine HCL *QUVA* 50mg (1mL) SYRINGE ONE (08:49)
[2021-07-08 09:19] LABS: Estimated Average Glucose 246 mg/dl; Hemoglobin A1C 10.2 %
[2021-07-08] MEDS: Metoprolol XL (24 HR) Succ 25 MG TAB.ER.24H PO SCH ×2 (09:56→20:44)
[2021-07-08] MEDS: Aspirin 81 MG TAB.CHEW PO SCH (09:56)
[2021-07-08] MEDS: Chlorhexidine Rinse 15 ML MOUTHWASH MM SCH ×2 (09:56→20:45)
[2021-07-08] MEDS: Pantoprazole 40 MG VIAL IVP SCH (09:56)
[2021-07-08] MEDS: Lactobacillus 1 EACH CAP.SPRINK PO SCH ×2 (09:56→20:45)
[2021-07-08] MEDS: Ringers Solution, Lactated 1,000 ML IVC SCH (10:33)
[2021-07-08] MEDS: Piperacillin/Tazobactam 3.375 GM in 0.9 % Sodium Chloride Mini Bag 100 ML IVPB SCH ×2 (11:24→17:46)
[2021-07-08] MEDS: *HR* OxyCODONE Immed Rel 5 MG TABLET PO PRN ×2 (11:31→19:10)
[2021-07-08] MEDS: Budesonide/Formoterol 160/4.5 1 PUFF INH IH SCH ×2 (12:40→20:12)
[2021-07-08] MEDS: Ipratropium/Albuterol Neb 3 ML IH SCH ×3 (12:42→20:12)
[2021-07-08] MEDS ORDERED: Bisacodyl 10 MG RECTAL SUPPOSITORY RC PRN (14:44)
[2021-07-08] MEDS ORDERED: Aspirin Enteric Coated 81 MG Tablet PO SCH (14:45)
[2021-07-08] MEDS: Insulin LISPRO 300 UNITS/3 ML VIAL SUBQ SCH ×2 (17:46→20:45)
[2021-07-08] MEDS ORDERED: Insulin LISPRO 300 UNITS/3 ML VIAL SUBQ SCH (18:00)
[2021-07-08] MEDS ORDERED: Insulin DETEMIR 100 UNIT/ML X5UNITS SUBQ SCH (21:00)
[2021-07-09 00:34] LABS: Basophils # 0.1 K/mcL (0.0-0.2); Basophils % 0.6 %; Eosinophils # 0.2 K/mcL (0.0-0.6); Eosinophils % 1.3 %; Hematocrit 34.5 % (37.5-50.1); Immature Granulocytes % 0.4 % (0-4); Lymphocytes # 1.1 K/mcL (0.6-4.6); Lymphocytes % 7.2 %; Mean Corpuscular HGB Conc 33.3 g/dL (31.6-35.5); Mean Corpuscular Hemoglobin 26.3 pg (28.0-33.3); Mean Corpuscular Volume 78.9 fL (83.0-100.0); Mean Platelet Volume 9.2 fL (9.4-12.4); Monocytes # 1.3 K/mcL (0.0-1.3); Monocytes % 8.2 %; Neutrophils # 12.9 K/mcL (1.6-8.9); Platelet Count 325 K/mcL (140-400); Red Blood Count 4.37 M/mcL (4.19-5.50); Red Cell Distribution Width 19.3 % (11.5-14.5); Segmented Neutrophils % 82.3 %; White Blood Count 15.7 K/mcL (4.3-11.1)
[2021-07-09 00:35] LABS: Hemoglobin 11.5 g/dL (12.9-16.9)
[2021-07-09] MEDS: Heparin 25,000UNIT/250ML 1/2NS 25,000 UNIT/250 ML IV.SOLN IVC SCH ×2 (00:48→14:34)
[2021-07-09 00:55] LABS: Albumin 2.5 g/dL (3.5-5.7); Albumin/Globulin Ratio 0.5 (1.1-2.2); Bilirubin,Total 1.6 mg/dL (0.3-1.0); Calcium 8.7 mg/dL (8.6-10.3); Potassium 4.2 mEq/L (3.5-5.1); Total Protein 7.5 g/dL (6.4-8.9)
[2021-07-09] MEDS: Piperacillin/Tazobactam 3.375 GM in 0.9 % Sodium Chloride Mini Bag 100 ML IVPB SCH ×3 (03:21→20:25)
[2021-07-09] MEDS: Ipratropium/Albuterol Neb 3 ML IH SCH ×4 (03:41→19:56)
[2021-07-09] MEDS ORDERED: Vancomycin 1,750 MG/517.5 ML IV.SOLN IVPB SCH (04:00)
[2021-07-09] MEDS: *HR* OxyCODONE Immed Rel 5 MG TABLET PO PRN (04:42)
[2021-07-09] MEDS: Budesonide/Formoterol 160/4.5 1 PUFF INH IH SCH ×2 (07:48→19:56)
[2021-07-09] MEDS ORDERED: Vancomycin 1,500 MG/265 ML IV.SOLN IVPB SCH (08:00)
[2021-07-09] MEDS: Chlorhexidine Rinse 15 ML MOUTHWASH MM SCH (10:35)
[2021-07-09] MEDS: Metoprolol XL (24 HR) Succ 25 MG TAB.ER.24H PO SCH ×2 (10:35→20:25)
[2021-07-09] MEDS: Lactobacillus 1 EACH CAP.SPRINK PO SCH ×2 (10:35→20:28)
[2021-07-09] MEDS: Isosorbide MONOnitrate (24 HR) 30 MG TAB.ER.24H PO SCH (10:35)
[2021-07-09] MEDS: Aspirin 81 MG TAB.CHEW PO SCH (10:35)
[2021-07-09] MEDS: Pantoprazole 40 MG VIAL IVP SCH (10:37)
[2021-07-09] MEDS: Ringers Solution, Lactated 1,000 ML IVC SCH (11:16)
[2021-07-09] MEDS: Insulin LISPRO 300 UNITS/3 ML VIAL SUBQ SCH ×6 (11:18→20:28)
[2021-07-09] MEDS ORDERED: Simethicone 80 MG TAB.CHEW PO PRN (11:20)
[2021-07-09] MEDS: *HR* HYDROcodone/Acet 5/325 mg TABLET PO PRN (14:04)
[2021-07-09 15:32] LABS: INR 5.5; Prothrombin Time 60.3 Seconds (9.4-12.1)
[2021-07-09 16:59] LABS: Prothrombin Time 60.3 Seconds (9.4-12.1)
[2021-07-09 17:00] LABS: INR 5.5
[2021-07-09] MEDS: Warfarin perPT PO SCH (20:03)
[2021-07-09] MEDS: *HR* OxyCODONE ER (12 HR) 10 MG TABLET PO SCH (20:28)
[2021-07-09] MEDS: Insulin DETEMIR 100 UNIT/ML X5UNITS SUBQ SCH (20:28)
[2021-07-10] MEDS: Ipratropium/Albuterol Neb 3 ML IH SCH ×4 (03:44→20:10)
[2021-07-10] MEDS: Piperacillin/Tazobactam 3.375 GM in 0.9 % Sodium Chloride Mini Bag 100 ML IVPB SCH (03:47)
[2021-07-10 04:34] LABS: Basophils # 0.1 K/mcL (0.0-0.2); Basophils % 0.7 %; Eosinophils # 0.4 K/mcL (0.0-0.6); Eosinophils % 3.5 %; Hematocrit 33.3 % (37.5-50.1); Immature Granulocytes % 0.7 % (0-4); Lymphocytes # 1.2 K/mcL (0.6-4.6); Lymphocytes % 10.1 %; Mean Corpuscular Hemoglobin 25.5 pg (28.0-33.3); Mean Corpuscular Volume 77.3 fL (83.0-100.0); Mean Platelet Volume 8.9 fL (9.4-12.4); Neutrophils # 9.4 K/mcL (1.6-8.9); Platelet Count 342 K/mcL (140-400); Red Blood Count 4.31 M/mcL (4.19-5.50); Red Cell Distribution Width 19.1 % (11.5-14.5); White Blood Count 12.2 K/mcL (4.3-11.1)
[2021-07-10 04:38] LABS: INR 3.5; Prothrombin Time 38.9 Seconds (9.4-12.1)
[2021-07-10 04:57] LABS: Calcium 8.9 mg/dL (8.6-10.3); Magnesium 1.7 mg/dL (1.6-2.6); Phosphorous 3.6 mg/dL (2.7-4.5); Potassium 4.7 mEq/L (3.5-5.1)
[2021-07-10] MEDS: Vancomycin 1,250 MG/262.5 ML IV.SOLN IVPB SCH (05:30)
[2021-07-10] MEDS: Budesonide/Formoterol 160/4.5 1 PUFF INH IH SCH ×2 (07:33→20:10)
[2021-07-10] MEDS: Aspirin 81 MG TAB.CHEW PO SCH (10:17)
[2021-07-10] MEDS: *HR* OxyCODONE ER (12 HR) 10 MG TABLET PO SCH (10:17)
[2021-07-10] MEDS: Lactobacillus 1 EACH CAP.SPRINK PO SCH ×2 (10:17→20:22)
[2021-07-10] MEDS: Metoprolol XL (24 HR) Succ 25 MG TAB.ER.24H PO SCH ×2 (10:18→20:22)
[2021-07-10] MEDS: Loratadine 10 MG TABLET PO SCH (10:18)
[2021-07-10] MEDS: Isosorbide MONOnitrate (24 HR) 30 MG TAB.ER.24H PO SCH (10:18)
[2021-07-10] MEDS: Insulin LISPRO 300 UNITS/3 ML VIAL SUBQ SCH ×7 (10:23→18:26)
[2021-07-10] MEDS: Ringers Solution, Lactated 1,000 ML IVC SCH (10:24)
[2021-07-10] MEDS: Insulin DETEMIR 100 UNIT/ML X5UNITS SUBQ SCH ×2 (10:26→20:23)
[2021-07-10] MEDS: *HR* HYDROcodone/Acet 5/325 mg TABLET PO PRN ×2 (12:06→18:20)
[2021-07-10] MEDS: metroNIDAZOLE 500 MG TABLET PO SCH ×2 (16:06→20:22)
[2021-07-10] MEDS ORDERED: *HR* Warfarin 2 MG TABLET PO ONE (18:00)
[2021-07-10] MEDS: Cefepime HCl 2,000 MG in 0.9 % Sodium Chloride 10 ML IVP SCH (18:21)
[2021-07-11] MEDS: *HR* OxyCODONE ER (12 HR) 10 MG TABLET PO SCH ×3 (00:12→20:41)
[2021-07-11] MEDS: Ipratropium/Albuterol Neb 3 ML IH SCH ×4 (03:35→20:25)
[2021-07-11 05:16] LABS: Basophils # 0.1 K/mcL (0.0-0.2); Basophils % 0.7 %; Eosinophils # 0.5 K/mcL (0.0-0.6); Eosinophils % 4.8 %; Hematocrit 34.4 % (37.5-50.1); Hemoglobin 11.3 g/dL (12.9-16.9); Immature Granulocytes % 0.5 % (0-4); Lymphocytes # 1.2 K/mcL (0.6-4.6); Lymphocytes % 12.3 %; Mean Corpuscular HGB Conc 32.8 g/dL (31.6-35.5); Mean Corpuscular Hemoglobin 26.4 pg (28.0-33.3); Mean Corpuscular Volume 80.4 fL (83.0-100.0); Mean Platelet Volume 9.2 fL (9.4-12.4); Monocytes # 0.7 K/mcL (0.0-1.3); Monocytes % 7.3 %; Neutrophils # 7.1 K/mcL (1.6-8.9); Platelet Count 366 K/mcL (140-400); Red Blood Count 4.28 M/mcL (4.19-5.50); Red Cell Distribution Width 19.3 % (11.5-14.5); Segmented Neutrophils % 74.4 %; White Blood Count 9.5 K/mcL (4.3-11.1)
[2021-07-11] MEDS: Vancomycin 1,250 MG/262.5 ML IV.SOLN IVPB SCH (05:31)
[2021-07-11] MEDS: *HR* HYDROcodone/Acet 5/325 mg TABLET PO PRN ×2 (05:36→18:25)
[2021-07-11 05:38] LABS: INR 2.7; Prothrombin Time 29.5 Seconds (9.4-12.1)
[2021-07-11] MEDS: Cefepime HCl 2,000 MG in 0.9 % Sodium Chloride 10 ML IVP SCH (05:43)
[2021-07-11 07:35] LABS: Magnesium 1.7 mg/dL (1.6-2.6); Phosphorous 3.7 mg/dL (2.7-4.5); Potassium 4.8 mEq/L (3.5-5.1)
[2021-07-11] MEDS: Warfarin perPT PO SCH (07:49)
[2021-07-11] MEDS: Budesonide/Formoterol 160/4.5 1 PUFF INH IH SCH ×2 (07:54→20:25)
[2021-07-11] MEDS: Insulin LISPRO 300 UNITS/3 ML VIAL SUBQ SCH ×7 (08:27→20:43)
[2021-07-11] MEDS: Isosorbide MONOnitrate (24 HR) 30 MG TAB.ER.24H PO SCH (08:30)
[2021-07-11] MEDS: Lactobacillus 1 EACH CAP.SPRINK PO SCH ×2 (08:30→20:41)
[2021-07-11] MEDS: Loratadine 10 MG TABLET PO SCH (08:30)
[2021-07-11] MEDS: Aspirin 81 MG TAB.CHEW PO SCH (08:30)
[2021-07-11] MEDS: metroNIDAZOLE 500 MG TABLET PO SCH ×2 (08:30→20:41)
[2021-07-11] MEDS: Metoprolol XL (24 HR) Succ 25 MG TAB.ER.24H PO SCH ×2 (08:30→20:41)
[2021-07-11] MEDS: Insulin DETEMIR 100 UNIT/ML X5UNITS SUBQ SCH ×2 (08:38→21:12)
[2021-07-11] MEDS ORDERED: DAPTOmycin 750 MG in 0.9 % Sodium Chloride 100 ML IVPB SCH (13:00)
[2021-07-11] MEDS ORDERED: *HR* Warfarin 2 MG TABLET PO ONE (18:00)
[2021-07-11] MEDS ORDERED: cefTRIAXone 2,000 MG in 0.9 % Sodium Chloride 20 ML IVP SCH (18:00)
[2021-07-11] MEDS ORDERED: Warfarin perPT PO PRN (18:30)
[2021-07-12] MEDS: Ipratropium/Albuterol Neb 3 ML IH SCH (03:09)
[2021-07-12] MEDS: Loratadine 10 MG TABLET PO SCH (07:47)
[2021-07-12] MEDS: Aspirin 81 MG TAB.CHEW PO SCH (07:48)
[2021-07-12] MEDS: Lactobacillus 1 EACH CAP.SPRINK PO SCH (07:48)
[2021-07-12] MEDS: Metoprolol XL (24 HR) Succ 25 MG TAB.ER.24H PO SCH (07:48)
[2021-07-12] MEDS: metroNIDAZOLE 500 MG TABLET PO SCH (07:48)
[2021-07-12] MEDS: Isosorbide MONOnitrate (24 HR) 30 MG TAB.ER.24H PO SCH (07:48)
[2021-07-12] MEDS: Insulin LISPRO 300 UNITS/3 ML VIAL SUBQ SCH ×4 (07:50→11:42)
[2021-07-12] MEDS: Insulin DETEMIR 100 UNIT/ML X5UNITS SUBQ SCH (07:57)
[2021-07-12] MEDS: *HR* OxyCODONE ER (12 HR) 10 MG TABLET PO SCH (08:06)
[2021-07-12 10:01] LABS: Basophils # 0.1 K/mcL (0.0-0.2); Eosinophils # 0.5 K/mcL (0.0-0.6); Eosinophils % 4.2 %; Hematocrit 37.4 % (37.5-50.1); Immature Granulocytes % 0.7 % (0-4); Lymphocytes # 1.4 K/mcL (0.6-4.6); Lymphocytes % 11.5 %; Mean Corpuscular HGB Conc 32.1 g/dL (31.6-35.5); Mean Corpuscular Hemoglobin 25.9 pg (28.0-33.3); Mean Corpuscular Volume 80.8 fL (83.0-100.0); Mean Platelet Volume 9.1 fL (9.4-12.4); Monocytes # 0.7 K/mcL (0.0-1.3); Monocytes % 5.7 %; Neutrophils # 9.2 K/mcL (1.6-8.9); Platelet Count 421 K/mcL (140-400); Red Blood Count 4.63 M/mcL (4.19-5.50); Red Cell Distribution Width 19.3 % (11.5-14.5); Segmented Neutrophils % 76.9 %
[2021-07-12 10:05] LABS: INR 2.3; Prothrombin Time 25.3 Seconds (9.4-12.1)
[2021-07-12 10:07] LABS: Calcium 9.4 mg/dL (8.6-10.3); Magnesium 1.6 mg/dL (1.6-2.6); Potassium 5.2 mEq/L (3.5-5.1)
[2021-07-12 10:40] VITALS: BP 105/56; PULSE 67; TEMP 98.1; O2SAT 96
[2021-07-12] MEDS: *HR* HYDROcodone/Acet 5/325 mg TABLET PO PRN (10:54)
[2021-07-13] MEDS ORDERED: SODIUM ZIRCONIUM CYCLOSILICATE 5 GM POWD.PACK PO ONE (11:36)
== END 2021-07-12 13:44 | DRG 853 ==
LOC: EMEROOARM 23:41 → 4WAOSI 23:41 → SUATTDRO 07-08 04:12 → 4WAOSI 07-08 04:15 → SUATTDRO 07-08 04:37 → 4WAOSI 07-08 05:09
PROVIDERS: ADMIT Internal Medicine; ATTEND Internal Medicine

== ENCOUNTER 2022-01-01 07:52 | Inpatient (IN) ==
[2022-01-01 08:50] LABS: Amorphous Sediment,Urine Few per hpf (None-Few); Bacteria,Urine Few per hpf (None-Few); Bilirubin,Urine Negative (Negative); Blood,Urine Small (Negative); Clarity,Urine Turbid (Clear); Color,Urine Yellow (Yellow); Glucose,Urine (UA) 100 mg/dL (Normal); Hyaline Casts,Urine Few per lpf (None Seen); Ketones,Urine Negative (Negative); Leukocyte Esterase,Urine Negative (Negative); Mucus,Urine Few per lpf (None-Few); Nitrite,Urine Negative (Negative); PH,Urine 5.5 pH Units (5.0-8.0); Protein,Urine 100 mg/dL (Neg-Trace); RBC,Urine 0-3 per hpf (0-3); Specific Gravity,Urine 1.017 (1.010-1.025); Squamous Epithelial Cell,Urine Few per hpf (None-Few); WBC,Urine 0-3 per hpf (0-3)
[2022-01-01 09:30] LABS: Basophils # 0.1 K/mcL (0.0-0.2); Basophils % 0.2 %; Hematocrit 35.1 % (37.5-50.1); Hemoglobin 10.6 g/dL (12.9-16.9); Immature Granulocytes % 1.1 % (0-4); Lymphocytes % 4.4 %; Mean Corpuscular HGB Conc 30.2 g/dL (31.6-35.5); Mean Corpuscular Hemoglobin 27.5 pg (28.0-33.3); Mean Corpuscular Volume 90.9 fL (83.0-100.0); Mean Platelet Volume 9.4 fL (9.4-12.4); Monocytes # 1.1 K/mcL (0.0-1.3); Monocytes % 5.1 %; Neutrophils # 19.6 K/mcL (1.6-8.9); Platelet Count 430 K/mcL (140-400); Red Blood Count 3.86 M/mcL (4.19-5.50); Red Cell Distribution Width 14.6 % (11.5-14.5); Segmented Neutrophils % 89.2 %
[2022-01-01 09:57] LABS: Troponin I 0.09 ng/mL (< 0.04)
[2022-01-01 10:16] LABS: Albumin 3.7 g/dL (3.5-5.7); Albumin/Globulin Ratio 0.8 (1.1-2.2); Bilirubin,Direct 1.1 mg/dL (0.0-0.2); Bilirubin,Total 2.1 mg/dL (0.3-1.0); Calcium 9.7 mg/dL (8.6-10.3); Globulin 4.7 g/dL (2.4-3.5); Potassium 8.7 mEq/L (3.5-5.1); Total Protein 8.4 g/dL (6.4-8.9)
[2022-01-01] MEDS ORDERED: Insulin Human Regular 10 UNIT in 0.9 % Sodium Chloride 10 ML IV ONE (10:18)
[2022-01-01] MEDS ORDERED: Calcium Gluconate 1gm/50mL 1 GM/50 ML BAG IVPB ONE (10:20)
[2022-01-01] MEDS ORDERED: Albuterol 2.5 MG/3 ML NEBULIZER IH ONE (10:20)
[2022-01-01] MEDS ORDERED: *HR* Dextrose 50 % in Water (Syg) 50 ML SYRINGE IVP ONE (10:21)
[2022-01-01] MEDS ORDERED: Heparin 1,000 UNITS/500 mL 500 ML ONE (10:55)
[2022-01-01] MEDS ORDERED: Sodium Bicarbonate 50 MEQ/50 ML VIAL IVP ONE (11:23)
[2022-01-01] MEDS ORDERED: 0.9 % Sodium Chloride 3,000 ML IV ONE (11:24)
[2022-01-01] MEDS ORDERED: Naloxone 0.4 MG/ML INJ IVP PRN (11:38)
[2022-01-01] MEDS ORDERED: Dextrose Gel 15 GM/37.5 ML TUBE PO PRN ×2 (11:48)
[2022-01-01] MEDS ORDERED: D5% in Water 1,000 ML IVC PRN (11:48)
[2022-01-01] MEDS ORDERED: Ondansetron 4 MG/2 ML VIAL IVP PRN (11:48)
[2022-01-01] MEDS ORDERED: Albuterol 2.5 MG/3 ML NEBULIZER IH PRN (11:48)
[2022-01-01 11:57] LABS: INR 7.7; Prothrombin Time 84.2 Seconds (9.4-12.1)
[2022-01-01] MEDS ORDERED: Vancomycin (wt based) 1,000 MG VIAL IVPB SCH (12:00)
[2022-01-01 12:04] LABS: Calcium 9.4 mg/dL (8.6-10.3); Potassium 7.9 mEq/L (3.5-5.1)
[2022-01-01] MEDS: 0.9 % Sodium Chloride 1,000 ML IVC SCH ×3 (12:14→13:58)
[2022-01-01 12:28] LABS: ABG Base Excess -11 mEq/L (-2 to 3); ABG HCO3 13 mEq/L (21-27); ABG Oxygen Saturation 99 % (95-98); ABG PCO2 23 mmHg (35-45); ABG PH 7.36 pH Units (7.32-7.45); ABG PO2 116 mmHg (85-104); ABG TCO2 13 mEq/L (20-26)
[2022-01-01] MEDS ORDERED: Vancomycin 2,000 MG/520 ML IV.SOLN IVPB SCH (13:00)
[2022-01-01] MEDS ORDERED: Norepinephrine 4 MG/254 ML IV.SOLN IVC ONE (13:09)
[2022-01-01] MEDS ORDERED: *HR* Heparin 5,000 UNIT/ML VIAL ONE (13:23)
[2022-01-01] MEDS: Piperacillin/Tazobactam 3.375 GM in 0.9 % Sodium Chloride Mini Bag 100 ML IVPB SCH ×2 (13:24→20:01)
[2022-01-01] MEDS: Sodium Bicarbonate 150 MEQ in Water for inj. (sterile) 1,000 ML IVC SCH ×2 (13:25→23:49)
[2022-01-01] MEDS: Norepinephrine 4 MG/254 ML IV.SOLN IVC SCH ×2 (13:25→20:01)
[2022-01-01] MEDS ORDERED: 0.9 % Sodium Chloride 250 ML ONE (13:42)
[2022-01-01] MEDS: Insulin LISPRO 300 UNITS/3 ML VIAL SUBQ SCH ×3 (13:59→23:49)
[2022-01-01] MEDS ORDERED: *HR* LORazepam 2 MG/ML VIAL ONE (14:29)
[2022-01-01] MEDS: Ipratropium/Albuterol Neb 3 ML IH SCH ×5 (15:32→23:12)
[2022-01-01 15:55] LABS: VBG HCO3 12 mEq/L (21-27); VBG PCO2 27 mmHg (41-51); VBG PH 7.26 pH Units (7.32-7.42); VBG PO2 40 mmHg (25-50)
[2022-01-01 16:37] LABS: VBG Ionized Calcium 0.97 mmol/L (1.15-1.35)
[2022-01-01 16:57] LABS: C-Reactive Protein 58 mg/L (Less than 10); Creatine Kinase 159 Units/L (30-223); Phosphorous 8.3 mg/dL (2.7-4.5)
[2022-01-01 17:01] LABS: Calcium 8.9 mg/dL (8.6-10.3); Potassium 7.8 mEq/L (3.5-5.1)
[2022-01-01 17:07] LABS: Protein/Creatinine Ratio,Urine 1.77 mg/mg (0.00-0.20); Sodium, Urine 16.8 mEq/L
[2022-01-01] MEDS: Pantoprazole 40 MG VIAL IVP SCH ×2 (17:18→17:23)
[2022-01-01] MEDS: 0.9 % Sodium Chloride 1,000 ML PRIME SCH ×5 (17:19→23:49)
[2022-01-01] MEDS: CALCIUM CHLORIDE CRRT SCH ×4 (17:20→20:33)
[2022-01-01] MEDS: PRISMASATE BGK CRRT SCH ×4 (17:20→20:33)
[2022-01-01 17:24] LABS: Acetaminophen < 10 mcg/mL (10-20); Amylase 18 Units/L (29-103); Lactate Dehydrogenase > 3600 Units/L (140-271); Lipase 24 Units/L (11-82)
[2022-01-01 17:26] LABS: Hepatitis B Surface Antibody < 3.10 mIU/mL
[2022-01-01 17:34] LABS: Hepatitis B Surface Antigen Nonreactive (Nonreactive)
[2022-01-01 17:58] LABS: Salicylate < 2.5 mg/dL (15.0-30.0)
[2022-01-01 18:57] LABS: Prothrombin Time 76.7 Seconds (9.4-12.1)
[2022-01-01] MEDS: *HR* OxyCODONE ER (12 HR) 10 MG TABLET PO SCH ×2 (20:01→20:47)
[2022-01-01 20:17] LABS: ABG Base Excess -14 mEq/L (-2 to 3); ABG HCO3 11 mEq/L (21-27); ABG Oxygen Saturation 99 % (95-98); ABG PCO2 21 mmHg (35-45); ABG PO2 137 mmHg (85-104); ABG TCO2 11 mEq/L (20-26)
[2022-01-01 20:33] LABS: Basophils % 0.2 %; Immature Granulocytes % 1.1 % (0-4)
[2022-01-01 20:34] LABS: Basophils # 0.1 K/mcL (0.0-0.2); Hematocrit 31.5 % (37.5-50.1); Hemoglobin 9.7 g/dL (12.9-16.9); Lymphocytes # 0.9 K/mcL (0.6-4.6); Lymphocytes % 3.5 %; Mean Corpuscular HGB Conc 30.8 g/dL (31.6-35.5); Mean Corpuscular Volume 90.8 fL (83.0-100.0); Mean Platelet Volume 9.6 fL (9.4-12.4); Monocytes # 1.1 K/mcL (0.0-1.3); Monocytes % 4.4 %; Neutrophils # 22.7 K/mcL (1.6-8.9); Platelet Count 406 K/mcL (140-400); Red Blood Count 3.47 M/mcL (4.19-5.50); Red Cell Distribution Width 14.7 % (11.5-14.5); Segmented Neutrophils % 90.8 %
[2022-01-01 20:43] LABS: Activated Partial Thrombo Time 38.1 Seconds (26.0-36.0); Heparin anti-factor XA UFH < 0.04 IU/mL (0.30-0.70)
[2022-01-01 20:51] LABS: Calcium 8.5 mg/dL (8.6-10.3); Potassium 6.2 mEq/L (3.5-5.1)
[2022-01-01 20:56] LABS: Platelet Estimate Normal (Normal)
[2022-01-01 21:01] LABS: Troponin I 0.17 ng/mL (< 0.04)
[2022-01-01] MEDS: SODIUM CHLORIDE 0.9% IVPB SCH (23:48)
[2022-01-01] MEDS: DAPTOMYCIN IVPB SCH (23:48)
[2022-01-02] MEDS: PRISMASATE BGK CRRT SCH ×12 (00:06→21:41)
[2022-01-02] MEDS: CALCIUM CHLORIDE CRRT SCH ×12 (00:06→21:41)
[2022-01-02] MEDS: 0.9 % Sodium Chloride 1,000 ML PRIME SCH ×15 (00:09→22:49)
[2022-01-02] MEDS: Sodium Bicarbonate 150 MEQ in Water for inj. (sterile) 1,000 ML IVC SCH (01:16)
[2022-01-02 02:36] LABS: Basophils % 0.1 %; Hematocrit 29.4 % (37.5-50.1); Hemoglobin 9.1 g/dL (12.9-16.9); Immature Granulocytes % 0.9 % (0-4); Lymphocytes # 0.9 K/mcL (0.6-4.6); Lymphocytes % 3.8 %; Mean Corpuscular Hemoglobin 28.1 pg (28.0-33.3); Mean Corpuscular Volume 90.7 fL (83.0-100.0); Mean Platelet Volume 9.8 fL (9.4-12.4); Monocytes % 4.2 %; Nucleated Red Blood Cells 0.1 /100 WBC (0); Platelet Count 372 K/mcL (140-400); Red Blood Count 3.24 M/mcL (4.19-5.50); Red Cell Distribution Width 14.8 % (11.5-14.5); White Blood Count 24.6 K/mcL (4.3-11.1)
[2022-01-02 02:52] LABS: VBG Ionized Calcium 0.87 mmol/L (1.15-1.35)
[2022-01-02 02:59] LABS: INR 5.8; Prothrombin Time 64.1 Seconds (9.4-12.1)
[2022-01-02 03:02] LABS: Neutrophils # 22.4 K/mcL (1.6-8.9)
[2022-01-02 03:04] LABS: Alanine Aminotransferase 3516 Units/L (7-52); Albumin 3.3 g/dL (3.5-5.7); Albumin/Globulin Ratio 0.8 (1.1-2.2); Alkaline Phosphatase 146 Units/L (34-104); Aspartate Amino Transferase > 3000 Units/L (13-39); BUN/Creatinine Ratio 17 (6-26); Bilirubin,Direct 1.4 mg/dL (0.0-0.2); Bilirubin,Indirect 1.1 mg/dL (0.0-1.0); Bilirubin,Total 2.5 mg/dL (0.3-1.0); Blood Urea Nitrogen 34 mg/dL (8-23); Calcium 8.2 mg/dL (8.6-10.3); Carbon Dioxide 14 mEq/L (23-29); Chloride 95 mEq/L (98-107); Globulin 4.3 g/dL (2.4-3.5); Glucose 62 mg/dL (70-105); Magnesium 1.9 mg/dL (1.6-2.6); Osmolality,Calculated 282 (280-300); Phosphorous 5.5 mg/dL (2.7-4.5); Potassium 5.2 mEq/L (3.5-5.1); Sodium 133 mEq/L (136-145); Total Protein 7.6 g/dL (6.4-8.9)
[2022-01-02] MEDS: Piperacillin/Tazobactam 3.375 GM in 0.9 % Sodium Chloride Mini Bag 100 ML IVPB SCH (03:29)
[2022-01-02] MEDS: Ipratropium/Albuterol Neb 3 ML IH SCH ×2 (04:18→09:25)
[2022-01-02] MEDS ORDERED: Magnesium Sulfate 1 GM/102 ML PIGGYBACK IVPB ONE (04:40)
[2022-01-02] MEDS: Calcium Gluconate 1gm/50mL 1 GM/50 ML BAG IVPB SCH ×3 (04:57→07:00)
[2022-01-02] MEDS: Pantoprazole 40 MG VIAL IVP SCH ×2 (05:01→17:54)
[2022-01-02] MEDS: Insulin LISPRO 300 UNITS/3 ML VIAL SUBQ SCH ×4 (05:56→23:02)
[2022-01-02] MEDS: *HR* Dextrose 50 % in Water (Syg) 50 ML SYRINGE IVP PRN (05:57)
[2022-01-02 06:29] LABS: A.calcoaceticus-baumannii cplx Not Detected (Not Detect); Bacteroides fragilis by PCR Not Detected (Not Detect); Candida albicans by PCR Not Detected (Not Detect); Candida auris by PCR Not Detected (Not Detect); Candida glabrata by PCR Not Detected (Not Detect); Candida krusei by PCR Not Detected (Not Detect); Candida parapsilosis by PCR Not Detected (Not Detect); Candida tropicalis by PCR Not Detected (Not Detect); Crypto. neoformans/gattii PCR Not Detected (Not Detect); Enterobacter cloacae Cmplx PCR Not Detected (Not Detect); Enterobacterales by PCR Not Detected (Not Detect); Enterococcus faecalis by PCR Not Detected (Not Detect); Enterococcus faecium by PCR Not Detected (Not Detect); Escherichia coli by PCR Not Detected (Not Detect); Klebs. pneumoniae group by PCR Not Detected (Not Detect); Klebsiella aerogenes by PCR Not Detected (Not Detect); Klebsiella oxytoca by PCR Not Detected (Not Detect); Proteus by PCR Not Detected (Not Detect); Pseudomonas aeruginosa by PCR Not Detected (Not Detect); Salmonella species by PCR Not Detected (Not Detect); Serratia marcescens by PCR Not Detected (Not Detect); Staph epidermidis by PCR Not Detected (Not Detect); Staph lugdunensis by PCR Not Detected (Not Detect); Staphylococcus aureus by PCR Not Detected (Not Detect); Staphylococcus by PCR Not Detected (Not Detect); Stenotrophomonas maltophilia Not Detected (Not Detect); Streptococcus agalactiae(B)PCR Not Detected (Not Detect); Streptococcus by PCR DETECTED (Not Detect); Streptococcus pneumoniae PCR Not Detected (Not Detect); Streptococcus pyogenes (A) PCR Not Detected (Not Detect); vanA/B Vancomycin-Resist Genes Not Detected (Not Detect)
[2022-01-02] MEDS ORDERED: Acetylcysteine IV 15,000 MG in D5% in Water 250 ML IVC ONE (08:00)
[2022-01-02] MEDS: Norepinephrine 4 MG/254 ML IV.SOLN IVC SCH ×3 (08:57→22:50)
[2022-01-02] MEDS: *HR* OxyCODONE ER (12 HR) 10 MG TABLET PO SCH ×2 (09:03→20:25)
[2022-01-02 09:15] LABS: Calcium 8.4 mg/dL (8.6-10.3); Potassium 4.6 mEq/L (3.5-5.1)
[2022-01-02] MEDS ORDERED: Acetylcysteine IV 5,000 MG in D5% in Water 500 ML IVC ONE (09:18)
[2022-01-02] MEDS ORDERED: Ipratropium/Albuterol Neb 3 ML IH PRN (09:26)
[2022-01-02] MEDS: Sodium Bicarbonate 150 MEQ in D5% in Water 1,000 ML IVC SCH ×2 (09:46→20:58)
[2022-01-02] MEDS: cefTRIAXone 2,000 MG in 0.9 % Sodium Chloride Mini Bag 100 ML IVPB SCH (11:30)
[2022-01-02] MEDS ORDERED: Acetylcysteine IV 10,000 MG in D5% in Water 1,000 ML IVC ONE (13:30)
[2022-01-02 13:35] LABS: VBG Ionized Calcium 0.92 mmol/L (1.15-1.35)
[2022-01-02 13:57] LABS: INR 7.1; Prothrombin Time 77.7 Seconds (9.4-12.1)
[2022-01-02 14:01] LABS: Calcium 8.2 mg/dL (8.6-10.3); Magnesium 1.8 mg/dL (1.6-2.6); Potassium 4.5 mEq/L (3.5-5.1)
[2022-01-02] MEDS: Calcium Gluconate 1gm/50mL 1 GM/50 ML BAG IVPB PRN ×2 (14:52→20:25)
[2022-01-02 15:49] LABS: Basophils # 0.1 K/mcL (0.0-0.2); Basophils % 0.2 %; Eosinophils # 0.1 K/mcL (0.0-0.6); Eosinophils % 0.3 %; Hematocrit 28.3 % (37.5-50.1); Hemoglobin 8.7 g/dL (12.9-16.9); Immature Granulocytes % 0.7 % (0-4); Lymphocytes # 1.1 K/mcL (0.6-4.6); Lymphocytes % 4.4 %; Mean Corpuscular HGB Conc 30.7 g/dL (31.6-35.5); Mean Corpuscular Hemoglobin 27.7 pg (28.0-33.3); Mean Corpuscular Volume 90.1 fL (83.0-100.0); Mean Platelet Volume 9.8 fL (9.4-12.4); Monocytes % 3.5 %; Neutrophils # 22.1 K/mcL (1.6-8.9); Nucleated Red Blood Cells 0.3 /100 WBC (0); Platelet Count 338 K/mcL (140-400); Red Blood Count 3.14 M/mcL (4.19-5.50); Red Cell Distribution Width 15.2 % (11.5-14.5); Segmented Neutrophils % 90.9 %; White Blood Count 24.3 K/mcL (4.3-11.1)
[2022-01-02 16:03] LABS: Monocytes # 0.9 K/mcL (0.0-1.3); Platelet Estimate Normal (Normal)
[2022-01-02 19:48] LABS: VBG Ionized Calcium 0.85 mmol/L (1.15-1.35)
[2022-01-02 19:49] LABS: Prothrombin Time 86.6 Seconds (9.4-12.1)
[2022-01-02 19:50] LABS: INR 7.9
[2022-01-02 19:57] LABS: Potassium 4.3 mEq/L (3.5-5.1)
[2022-01-02] MEDS: DAPTOMYCIN IVPB SCH (22:38)
[2022-01-02] MEDS: SODIUM CHLORIDE 0.9% IVPB SCH (22:38)
[2022-01-03] MEDS: 0.9 % Sodium Chloride 1,000 ML PRIME SCH ×2 (00:03→10:09)
[2022-01-03] MEDS: CALCIUM CHLORIDE CRRT SCH ×7 (01:08→08:58)
[2022-01-03] MEDS: PRISMASATE BGK CRRT SCH ×7 (01:08→08:58)
[2022-01-03] MEDS ORDERED: *HR* Heparin 5,000 UNIT/ML VIAL ONE (01:49)
[2022-01-03] MEDS: *HR* Heparin 5,000 UNIT/ML VIAL IVP PRN (02:07)
[2022-01-03 02:50] LABS: VBG Ionized Calcium 0.87 mmol/L (1.15-1.35)
[2022-01-03 02:58] LABS: Basophils % 0.1 %; Hematocrit 26.9 % (37.5-50.1); Hemoglobin 8.4 g/dL (12.9-16.9); Immature Granulocytes % 0.6 % (0-4); Lymphocytes # 1.1 K/mcL (0.6-4.6); Lymphocytes % 5.1 %; Mean Corpuscular HGB Conc 31.2 g/dL (31.6-35.5); Mean Corpuscular Hemoglobin 27.9 pg (28.0-33.3); Mean Corpuscular Volume 89.4 fL (83.0-100.0); Mean Platelet Volume 9.6 fL (9.4-12.4); Monocytes # 0.8 K/mcL (0.0-1.3); Monocytes % 3.9 %; Neutrophils # 18.6 K/mcL (1.6-8.9); Nucleated Red Blood Cells 0.7 /100 WBC (0); Platelet Count 284 K/mcL (140-400); Red Blood Count 3.01 M/mcL (4.19-5.50); Red Cell Distribution Width 15.4 % (11.5-14.5); Segmented Neutrophils % 90.3 %; White Blood Count 20.7 K/mcL (4.3-11.1)
[2022-01-03 03:19] LABS: INR 8.7; Prothrombin Time 95.4 Seconds (9.4-12.1)
[2022-01-03 03:32] LABS: Alanine Aminotransferase 3570 Units/L (7-52); Albumin 3.3 g/dL (3.5-5.7); Albumin/Globulin Ratio 0.8 (1.1-2.2); Alkaline Phosphatase 161 Units/L (34-104); Aspartate Amino Transferase > 3000 Units/L (13-39); BUN/Creatinine Ratio 15 (6-26); Bilirubin,Direct 1.7 mg/dL (0.0-0.2); Bilirubin,Indirect 1.5 mg/dL (0.0-1.0); Bilirubin,Total 3.2 mg/dL (0.3-1.0); Blood Urea Nitrogen 26 mg/dL (8-23); Calcium 7.9 mg/dL (8.6-10.3); Carbon Dioxide 18 mEq/L (23-29); Chloride 90 mEq/L (98-107); Globulin 3.9 g/dL (2.4-3.5); Glucose 211 mg/dL (70-105); Magnesium 1.9 mg/dL (1.6-2.6); Osmolality,Calculated 281 (280-300); Phosphorous 4.7 mg/dL (2.7-4.5); Sodium 130 mEq/L (136-145); Total Protein 7.2 g/dL (6.4-8.9)
[2022-01-03] MEDS: Pantoprazole 40 MG VIAL IVP SCH (05:32)
[2022-01-03] MEDS: Norepinephrine 4 MG/254 ML IV.SOLN IVC SCH ×5 (05:34→23:50)
[2022-01-03] MEDS: Insulin LISPRO 300 UNITS/3 ML VIAL SUBQ SCH ×3 (05:41→17:27)
[2022-01-03] MEDS: Acetylcysteine IV 10,000 MG in D5% in Water 1,000 ML IVC SCH (07:36)
[2022-01-03] MEDS: cefTRIAXone 2,000 MG in 0.9 % Sodium Chloride Mini Bag 100 ML IVPB SCH (08:00)
[2022-01-03] MEDS: *HR* OxyCODONE ER (12 HR) 10 MG TABLET PO SCH ×2 (08:00→19:25)
[2022-01-03] MEDS: Sodium Bicarbonate 150 MEQ in D5% in Water 1,000 ML IVC SCH (09:15)
[2022-01-03] MEDS ORDERED: 0.9 % Sodium Chloride 1,000 ML PRIME PRN (09:15)
[2022-01-03] MEDS ORDERED: 0.9 % Sodium Chloride 250 ML ONE (10:15)
[2022-01-03] MEDS ORDERED: PRISMASATE BGK CRRT SCH (12:00)
[2022-01-03] MEDS: PrismaSATE BGK 4/2.5 5,000 ML CRRT SCH ×9 (12:24→22:35)
[2022-01-03 13:42] LABS: VBG Ionized Calcium 0.94 mmol/L (1.15-1.35)
[2022-01-03 13:52] LABS: Calcium 8.1 mg/dL (8.6-10.3); Potassium 3.6 mEq/L (3.5-5.1)
[2022-01-03 14:12] LABS: Alanine Aminotransferase 3228 Units/L (7-52); Albumin 3.4 g/dL (3.5-5.7); Albumin/Globulin Ratio 0.8 (1.1-2.2); Alkaline Phosphatase 177 Units/L (34-104); Aspartate Amino Transferase > 3000 Units/L (13-39); Bilirubin,Indirect 1.3 mg/dL (0.0-1.0); Bilirubin,Total 3.3 mg/dL (0.3-1.0); Globulin 4.2 g/dL (2.4-3.5); Total Protein 7.6 g/dL (6.4-8.9)
[2022-01-03 14:43] LABS: Magnesium 2.1 mg/dL (1.6-2.6)
[2022-01-03] MEDS: Calcium Gluconate 1gm/50mL 1 GM/50 ML BAG IVPB PRN ×2 (14:57→23:03)
[2022-01-03] MEDS: Dexmedetomidine HCl 400 MCG/100 ML MLS IVC SCH (21:53)
[2022-01-03 22:22] LABS: VBG Ionized Calcium 1.04 mmol/L (1.15-1.35)
[2022-01-03] MEDS: DAPTOMYCIN IVPB SCH (23:02)
[2022-01-03] MEDS: SODIUM CHLORIDE 0.9% IVPB SCH (23:02)
[2022-01-04] MEDS: Acetylcysteine IV 10,000 MG in D5% in Water 1,000 ML IVC SCH ×2 (00:15→16:18)
[2022-01-04] MEDS: PrismaSATE BGK 4/2.5 5,000 ML CRRT SCH ×15 (02:00→22:42)
[2022-01-04 03:45] LABS: VBG Ionized Calcium 1.09 mmol/L (1.15-1.35)
[2022-01-04 03:50] LABS: Basophils % 0.2 %; Eosinophils % 0.4 %; Hematocrit 24.8 % (37.5-50.1); Hemoglobin 7.6 g/dL (12.9-16.9); Immature Granulocytes % 0.7 % (0-4); Lymphocytes # 0.9 K/mcL (0.6-4.6); Lymphocytes % 8.2 %; Mean Corpuscular HGB Conc 30.6 g/dL (31.6-35.5); Mean Corpuscular Hemoglobin 27.4 pg (28.0-33.3); Mean Corpuscular Volume 89.5 fL (83.0-100.0); Mean Platelet Volume 9.1 fL (9.4-12.4); Monocytes # 0.5 K/mcL (0.0-1.3); Monocytes % 4.6 %; Neutrophils # 9.2 K/mcL (1.6-8.9); Nucleated Red Blood Cells 0.7 /100 WBC (0); Platelet Count 178 K/mcL (140-400); Red Blood Count 2.77 M/mcL (4.19-5.50); Red Cell Distribution Width 15.4 % (11.5-14.5); Segmented Neutrophils % 85.9 %; White Blood Count 10.7 K/mcL (4.3-11.1)
[2022-01-04 04:05] LABS: INR 3.8; Prothrombin Time 42.4 Seconds (9.4-12.1)
[2022-01-04 04:20] LABS: Albumin 3.1 g/dL (3.5-5.7); Albumin/Globulin Ratio 0.8 (1.1-2.2); Bilirubin,Indirect 1.4 mg/dL (0.0-1.0); Bilirubin,Total 3.4 mg/dL (0.3-1.0); Calcium 7.9 mg/dL (8.6-10.3); Globulin 3.9 g/dL (2.4-3.5); Magnesium 2.2 mg/dL (1.6-2.6); Phosphorous 1.9 mg/dL (2.7-4.5); Potassium 3.7 mEq/L (3.5-5.1)
[2022-01-04] MEDS ORDERED: Potassium Phosphate 44 MEQ in 0.9 % Sodium Chloride 250 ML IVPB ONE ×2 (05:00→15:33)
[2022-01-04] MEDS: Insulin LISPRO 300 UNITS/3 ML VIAL SUBQ SCH ×5 (05:27→22:53)
[2022-01-04] MEDS: Calcium Gluconate 1gm/50mL 1 GM/50 ML BAG IVPB PRN ×2 (05:44→15:29)
[2022-01-04] MEDS ORDERED: *HR* Heparin 5,000 UNIT/ML VIAL ONE (06:19)
[2022-01-04] MEDS: Dexmedetomidine HCl 400 MCG/100 ML MLS IVC SCH ×2 (06:20→22:53)
[2022-01-04] MEDS: *HR* Heparin 5,000 UNIT/ML VIAL IVP PRN (06:41)
[2022-01-04] MEDS ORDERED: cefTRIAXone 2,000 MG in Water for inj. (sterile) 20 ML IVP SCH (09:00)
[2022-01-04] MEDS: *HR* OxyCODONE ER (12 HR) 10 MG TABLET PO SCH ×2 (10:16→20:18)
[2022-01-04] MEDS ORDERED: Ziprasidone 10 MG, Closed System Device IM Kit 1 EACH in Water for inj. (sterile) 0.5 ML IM ONE (12:08)
[2022-01-04 15:01] LABS: VBG Ionized Calcium 1.08 mmol/L (1.15-1.35)
[2022-01-04 15:13] LABS: INR 3.5; Prothrombin Time 38.3 Seconds (9.4-12.1)
[2022-01-04 15:25] LABS: Magnesium 2.3 mg/dL (1.6-2.6); Phosphorous 2.5 mg/dL (2.7-4.5); Potassium 3.8 mEq/L (3.5-5.1)
[2022-01-04] MEDS: DAPTOMYCIN IVPB SCH (22:03)
[2022-01-04] MEDS: SODIUM CHLORIDE 0.9% IVPB SCH (22:03)
[2022-01-05] MEDS: *HR* Metoprolol 5 MG/5 ML VIAL IVP SCH ×2 (00:34→00:41)
[2022-01-05] MEDS ORDERED: 0.9 % Sodium Chloride 1,000 ML IVC ONE (00:42)
[2022-01-05] MEDS ORDERED: Amiodarone Premix 360 MG/200 ML BAG IVC ONE (01:38)
[2022-01-05] MEDS ORDERED: Amiodarone Premix 150 MG/100 ML BAG IVPB ONE (01:38)
[2022-01-05] MEDS: PrismaSATE BGK 4/2.5 5,000 ML CRRT SCH ×4 (02:11→05:39)
[2022-01-05 03:30] LABS: Basophils % 0.4 %; Eosinophils # 0.1 K/mcL (0.0-0.6); Eosinophils % 1.8 %; Hematocrit 25.5 % (37.5-50.1); Hemoglobin 7.6 g/dL (12.9-16.9); Immature Granulocytes % 0.4 % (0-4); Lymphocytes # 0.7 K/mcL (0.6-4.6); Mean Corpuscular HGB Conc 29.8 g/dL (31.6-35.5); Mean Corpuscular Hemoglobin 26.9 pg (28.0-33.3); Mean Corpuscular Volume 90.1 fL (83.0-100.0); Mean Platelet Volume 9.8 fL (9.4-12.4); Monocytes # 0.3 K/mcL (0.0-1.3); Monocytes % 4.6 %; Nucleated Red Blood Cells 0.4 /100 WBC (0); Platelet Count 157 K/mcL (140-400); Red Blood Count 2.83 M/mcL (4.19-5.50); Segmented Neutrophils % 82.8 %; White Blood Count 7.2 K/mcL (4.3-11.1)
[2022-01-05 03:39] LABS: VBG Ionized Calcium 1.02 mmol/L (1.15-1.35)
[2022-01-05 04:06] LABS: INR 2.7; Prothrombin Time 29.4 Seconds (9.4-12.1)
[2022-01-05 04:39] LABS: Albumin 3.2 g/dL (3.5-5.7); Albumin/Globulin Ratio 0.8 (1.1-2.2); Bilirubin,Direct 2.1 mg/dL (0.0-0.2); Bilirubin,Indirect 1.2 mg/dL (0.0-1.0); Bilirubin,Total 3.3 mg/dL (0.3-1.0); Calcium 7.7 mg/dL (8.6-10.3); Globulin 3.9 g/dL (2.4-3.5); Magnesium 2.3 mg/dL (1.6-2.6); Phosphorous 2.4 mg/dL (2.7-4.5); Potassium 3.9 mEq/L (3.5-5.1); Total Protein 7.1 g/dL (6.4-8.9)
[2022-01-05] MEDS: Insulin LISPRO 300 UNITS/3 ML VIAL SUBQ SCH ×3 (05:23→17:49)
[2022-01-05] MEDS: Calcium Gluconate 1gm/50mL 1 GM/50 ML BAG IVPB PRN (05:24)
[2022-01-05] MEDS ORDERED: Cefepime HCl 2,000 MG in 0.9 % Sodium Chloride Mini Bag 100 ML IVPB SCH (08:00)
[2022-01-05] MEDS: Acetylcysteine IV 10,000 MG in D5% in Water 1,000 ML IVC SCH (08:09)
[2022-01-05] MEDS: Amiodarone Premix 360 MG/200 ML BAG IVC SCH ×2 (08:14→20:16)
[2022-01-05] MEDS ORDERED: Ziprasidone 10 MG, Closed System Device IM Kit 1 EACH in Water for inj. (sterile) 0.5 ML IM ONE (09:40)
[2022-01-05] MEDS ORDERED: *HR* Heparin 5,000 UNIT/ML VIAL ONE ×2 (09:48→09:53)
[2022-01-05] MEDS ORDERED: Ziprasidone 20 MG/VIAL VIAL IM ONE (09:54)
[2022-01-05] MEDS ORDERED: Water for inj. (sterile) 10 ML ONE (09:54)
[2022-01-05] MEDS: *HR* OxyCODONE ER (12 HR) 10 MG TABLET PO SCH ×2 (10:15→20:15)
[2022-01-05] MEDS ORDERED: *HR* Heparin 5,000 UNIT/ML VIAL IVP PRN ×2 (20:00)
[2022-01-05 20:50] LABS: ABG Base Excess -6 mEq/L (-2 to 3); ABG HCO3 20 mEq/L (21-27); ABG Oxygen Saturation 99 % (95-98); ABG PCO2 36 mmHg (35-45); ABG PH 7.34 pH Units (7.32-7.45); ABG PO2 138 mmHg (85-104); ABG TCO2 21 mEq/L (20-26)
[2022-01-05] MEDS: Heparin 25,000UNIT/250ML 1/2NS 25,000 UNIT/250 ML IV.SOLN IVC SCH (21:29)
[2022-01-05] MEDS: Cefepime HCl 2,000 MG in 0.9 % Sodium Chloride Mini Bag 100 ML IVPB SCH (21:47)
[2022-01-05 23:36] LABS: Hematocrit 25.5 % (37.5-50.1); Hemoglobin 7.9 g/dL (12.9-16.9); Mean Corpuscular Hemoglobin 27.9 pg (28.0-33.3); Mean Corpuscular Volume 90.1 fL (83.0-100.0); Mean Platelet Volume 10.6 fL (9.4-12.4); Platelet Count 161 K/mcL (140-400); Red Blood Count 2.83 M/mcL (4.19-5.50); Red Cell Distribution Width 15.5 % (11.5-14.5); White Blood Count 9.4 K/mcL (4.3-11.1)
[2022-01-05 23:43] LABS: Heparin anti-factor XA UFH 0.1 IU/mL (0.30-0.70)
[2022-01-05 23:44] LABS: INR 2.6; Prothrombin Time 28.9 Seconds (9.4-12.1)
[2022-01-05 23:46] LABS: Activated Partial Thrombo Time 38.2 Seconds (26.0-36.0)
[2022-01-06] MEDS: Insulin LISPRO 300 UNITS/3 ML VIAL SUBQ SCH ×4 (00:46→17:08)
[2022-01-06] MEDS: DAPTOMYCIN IVPB SCH ×2 (00:54→21:47)
[2022-01-06] MEDS: SODIUM CHLORIDE 0.9% IVPB SCH ×2 (00:54→21:47)
[2022-01-06 04:30] LABS: Basophils % 0.2 %; Eosinophils # 0.1 K/mcL (0.0-0.6); Eosinophils % 0.4 %; Hemoglobin 8.1 g/dL (12.9-16.9); Immature Granulocytes % 1.1 % (0-4); Lymphocytes # 1.1 K/mcL (0.6-4.6); Lymphocytes % 9.6 %; Mean Corpuscular HGB Conc 31.2 g/dL (31.6-35.5); Mean Corpuscular Hemoglobin 28.1 pg (28.0-33.3); Mean Corpuscular Volume 90.3 fL (83.0-100.0); Mean Platelet Volume 10.1 fL (9.4-12.4); Monocytes # 1.1 K/mcL (0.0-1.3); Monocytes % 9.4 %; Nucleated Red Blood Cells 0.8 /100 WBC (0); Platelet Count 162 K/mcL (140-400); Red Blood Count 2.88 M/mcL (4.19-5.50); Red Cell Distribution Width 15.6 % (11.5-14.5); Segmented Neutrophils % 79.3 %; White Blood Count 11.3 K/mcL (4.3-11.1)
[2022-01-06 04:38] LABS: INR 2.7; Prothrombin Time 29.5 Seconds (9.4-12.1)
[2022-01-06 05:05] LABS: Albumin 3.3 g/dL (3.5-5.7); Albumin/Globulin Ratio 0.8 (1.1-2.2); Bilirubin,Total 3.4 mg/dL (0.3-1.0); Calcium 8.6 mg/dL (8.6-10.3); Globulin 4.1 g/dL (2.4-3.5); Potassium 4.4 mEq/L (3.5-5.1); Total Protein 7.4 g/dL (6.4-8.9)
[2022-01-06] MEDS: Dexmedetomidine HCl 400 MCG/100 ML MLS IVC SCH ×2 (07:27→07:29)
[2022-01-06] MEDS: Norepinephrine 4 MG/254 ML IV.SOLN IVC SCH ×3 (07:27→09:31)
[2022-01-06] MEDS: Heparin 25,000UNIT/250ML 1/2NS 25,000 UNIT/250 ML IV.SOLN IVC SCH ×2 (07:32→09:09)
[2022-01-06] MEDS: *HR* OxyCODONE ER (12 HR) 10 MG TABLET PO SCH ×2 (08:38→20:00)
[2022-01-06] MEDS: Cefepime HCl 2,000 MG in 0.9 % Sodium Chloride Mini Bag 100 ML IVPB SCH ×2 (09:09→20:01)
[2022-01-06] MEDS: *HR* Amiodarone 200 MG TABLET PO SCH (11:10)
[2022-01-06 12:21] LABS: Albumin/Globulin Ratio 0.8 (1.1-2.2); Bilirubin,Direct 1.7 mg/dL (0.0-0.2); Bilirubin,Indirect 1.3 mg/dL (0.0-1.0); Globulin 3.9 g/dL (2.4-3.5); Magnesium 2.2 mg/dL (1.6-2.6); Phosphorous 3.2 mg/dL (2.7-4.5); Total Protein 6.9 g/dL (6.4-8.9)
[2022-01-07 01:09] LABS: Basophils % 0.3 %; Eosinophils # 0.1 K/mcL (0.0-0.6); Eosinophils % 0.4 %; Hematocrit 28.1 % (37.5-50.1); Hemoglobin 8.4 g/dL (12.9-16.9); Immature Granulocytes % 1.5 % (0-4); Lymphocytes # 1.5 K/mcL (0.6-4.6); Lymphocytes % 9.7 %; Mean Corpuscular HGB Conc 29.9 g/dL (31.6-35.5); Mean Corpuscular Hemoglobin 27.6 pg (28.0-33.3); Mean Corpuscular Volume 92.4 fL (83.0-100.0); Mean Platelet Volume 10.5 fL (9.4-12.4); Monocytes # 1.6 K/mcL (0.0-1.3); Monocytes % 10.4 %; Neutrophils # 12.1 K/mcL (1.6-8.9); Nucleated Red Blood Cells 0.5 /100 WBC (0); Platelet Count 186 K/mcL (140-400); Red Blood Count 3.04 M/mcL (4.19-5.50); Red Cell Distribution Width 16.5 % (11.5-14.5); Segmented Neutrophils % 77.7 %; White Blood Count 15.6 K/mcL (4.3-11.1)
[2022-01-07 01:16] LABS: INR 3.1; Prothrombin Time 34.3 Seconds (9.4-12.1)
[2022-01-07 01:43] LABS: Albumin 3.4 g/dL (3.5-5.7); Albumin/Globulin Ratio 0.8 (1.1-2.2); Calcium 9.2 mg/dL (8.6-10.3); Globulin 4.5 g/dL (2.4-3.5); Magnesium 2.5 mg/dL (1.6-2.6); Phosphorous 5.8 mg/dL (2.7-4.5); Total Protein 7.9 g/dL (6.4-8.9)
[2022-01-07] MEDS: Heparin 25,000UNIT/250ML 1/2NS 25,000 UNIT/250 ML IV.SOLN IVC SCH ×3 (01:56→22:46)
[2022-01-07] MEDS: *HR* Dextrose 50 % in Water (Syg) 50 ML SYRINGE IVP PRN ×5 (05:48→20:14)
[2022-01-07] MEDS: Insulin LISPRO 300 UNITS/3 ML VIAL SUBQ SCH ×5 (06:09→23:24)
[2022-01-07] MEDS: Cefepime HCl 2,000 MG in 0.9 % Sodium Chloride Mini Bag 100 ML IVPB SCH (09:12)
[2022-01-07] MEDS: *HR* OxyCODONE ER (12 HR) 10 MG TABLET PO SCH (09:23)
[2022-01-07] MEDS: *HR* Amiodarone 200 MG TABLET PO SCH (09:23)
[2022-01-07] MEDS ORDERED: Albumin 25% 25gram/100mL 25 GM/100 ML IV.SOLN IVPB ONE (10:40)
[2022-01-07] MEDS: Ipratropium/Albuterol Neb 3 ML IH SCH ×4 (10:51→23:53)
[2022-01-07] MEDS: Norepinephrine 4 MG/254 ML IV.SOLN IVC SCH ×4 (11:11→22:57)
[2022-01-07 11:17] LABS: Hematocrit 27.2 % (37.5-50.1)
[2022-01-07 12:01] LABS: Albumin 3.5 g/dL (3.5-5.7); Calcium 9.3 mg/dL (8.6-10.3); Phosphorous 8.7 mg/dL (2.7-4.5); Potassium 5.7 mEq/L (3.5-5.1)
[2022-01-07] MEDS ORDERED: *HR* Heparin 5,000 UNIT/ML VIAL ONE (13:10)
[2022-01-07] MEDS ORDERED: *HR* Alteplase (Cathflo) 2 MG VIAL IVP PRN (14:18)
[2022-01-07] MEDS ORDERED: 0.9 % Sodium Chloride 1,000 ML PRIME ONE ×2 (14:18)
[2022-01-07] MEDS ORDERED: *HR* Heparin 5,000 UNIT/ML VIAL IVP PRN (14:18)
[2022-01-07] MEDS ORDERED: 0.9 % Sodium Chloride 1,000 ML PRIME SCH (14:30)
[2022-01-07] MEDS ORDERED: PrismaSATE BGK 4/2.5 5,000 ML CRRT SCH ×4 (14:30→19:15)
[2022-01-07] MEDS ORDERED: ceFAZolin 1,000 MG, Sodium Chloride IRRigation 1,000 ML IR ONE (16:05)
[2022-01-07] MEDS ORDERED: Amiodarone Premix 150 MG/100 ML BAG IVPB ONE ×2 (17:27→17:29)
[2022-01-07] MEDS ORDERED: Amiodarone Premix 360 MG/200 ML BAG IVC ONE ×2 (17:27→17:29)
[2022-01-07] MEDS ORDERED: PRISMASATE BGK CRRT SCH ×2 (19:00)
[2022-01-07] MEDS ORDERED: Vasopressin 40 UNIT in D5% in Water 100 ML IVC SCH (19:15)
[2022-01-07] MEDS ORDERED: Cefepime HCl 1,000 MG in 0.9 % Sodium Chloride 10 ML IVP SCH (21:00)
[2022-01-07] MEDS ORDERED: SODIUM CHLORIDE 0.9% IVPB SCH (21:00)
[2022-01-07] MEDS ORDERED: DAPTOMYCIN IVPB SCH (21:00)
[2022-01-07 21:45] LABS: ABG Base Excess -25 mEq/L (-2 to 3); ABG HCO3 5 mEq/L (21-27); ABG Oxygen Saturation 100 % (95-98); ABG PCO2 25 mmHg (35-45); ABG PH 6.95 pH Units (7.32-7.45); ABG PO2 262 mmHg (85-104); ABG TCO2 6 mEq/L (20-26)
[2022-01-07] MEDS ORDERED: Phenylephrine 20 MG in 0.9 % Sodium Chloride 250 ML IVC SCH (23:15)
[2022-01-07] MEDS ORDERED: Norepinephrine 32 MG/250 ML IV.SOLN IVC SCH (23:15)
[2022-01-07] MEDS ORDERED: Amiodarone Premix 360 MG/200 ML BAG IVC SCH (23:27)
[2022-01-08 00:06] VITALS: TEMP 99.3
[2022-01-08] MEDS ORDERED: Sodium Bicarbonate 50 MEQ in 0.45 % Sodium Chloride 1,000 ML IVC SCH (00:30)
[2022-01-08] MEDS ORDERED: Morphine Sulfate 2 MG/ML SYRINGE IVP PRN (01:06)
[2022-01-08] MEDS ORDERED: *HR* FentaNYL (PF) 100 MCG/2 ML VIAL IVP PRN (01:08)
[2022-01-08 01:17] VITALS: BP 62/37; PULSE 139; O2SAT 90
[2022-01-08] MEDS ORDERED: ceFAZolin 1,000 MG, Sodium Chloride IRRigation 1,000 ML IR ONE (14:05)
== END 2022-01-08 03:17 | disposition expired | DRG 871 ==
LOC: EMEROOARM 07:52 → ICNU 14:54 → 2NNU 01-06 13:30 → ICNU 01-07 16:42
PROVIDERS: ADMIT Pediatrics; ATTEND Pediatrics